=== PATIENT | female | born 1970 | race African-American/Black ===

== ENCOUNTER → 2019-02-24 | Outpatient (CLI) | payer BC ==
[~2019-02-24] MED LIST: ALBUTEROL2.5 MG/3 M INH; AMITRIPTYLINE H50 MG PO; BREO INH; CYCLOBENZAPRINE5 MG PO; CYMBALTA30 MG PO; GABAPENTIN800 MG PO; Hydrocodone/Chlorpheniramine PO; LEVOCETIRIZINE D5 MG PO; LORATADINE10 MG PO; METHYLPREDNISOLO4 M1 PO; MONTELUKAST SOD10 MG PO; NIFEDIPINE ER90 M1 PO; PREDNISONE20 MG PO; TESSALON PERLE100 MG PO; TYLENOL # 31 EA PO; ZITHROMAX500 MG PO; ZOLPIDEM TARTRA10 MG PO
--- NOTE | 2019-02-24 15:40 | Diagnostic Imaging Report ---
Chest, 2 views, 02/24/2019. History: Shortness of breath and cough. Comparison: None available. Findings: The cardiomediastinal silhouette and pulmonary vasculature are within normal limits. The lungs are clear without evidence of consolidation or pleural effusion. Median sternotomy wires are present. There are no acute osseous or soft tissue abnormalities. Impression: No acute cardiopulmonary abnormality. Signed by: Melecio Noel on 02/24/2019 3:37 PM
== END ==
LOC: RAD 13:56
PROVIDERS: ATTEND Internal Medicine Critical Care Medicine
DX: R06.00 Dyspnea, unspecified (principal)
CPT/HCPCS: 71046

== ENCOUNTER 2019-02-26 11:15 | Inpatient (IN) | payer BC ==
[~2019-02-26] VITALS: Ht 162.6 cm; Wt 83.0 kg
--- OUTSIDE RECORDS SUMMARY | 2019-02-26 11:18 | XMS REPORT | Clinical Summary ---
Author Author [facility] [employer] Organization [facility] Address Unknown Phone Unavailable Care Team Providers Care Web Weaver Name Role Phone Sebastián Delvalle MD PCP Allergies No Known Allergies Medications End Date Status Medication Sig Dispensed Refills Start Date Active BUDESONIDE (PULMICORT Inhale. 0 INHL) Active albuterol (PROAIR Inhale 2 0 HFA,PROVENTIL puffs every 6 HFA,VENTOLIN HFA) 90 (six) hours mcg/actuation inhaler as needed for wheezing. Active gabapentin (NEURONTIN) Take 800 mg 0 800 mg tablet by mouth 3 (three) times a day. Active NIFEdipine XL (PROCARDIA Take 90 mg by 0 XL) 90 MG 24 hr tablet mouth daily. Active cyclobenzaprine Take 5 mg by 0 (FLEXERIL) 5 mg tablet mouth every 8 9 (eight) hours. Active DULoxetine (CYMBALTA) 30 Take by mouth 0 MG capsule daily. 9 Active zolpidem (AMBIEN) 10 mg 0 tablet 9 Active amitriptyline (ELAVIL) 50 Take 50 mg by 0 MG tablet mouth nightly. Active acetaminophen-codeine Take 1 tablet 0 (TYLENOL WITH CODEINE #4) by mouth 300-60 mg per every 4 tabletIndications: Acute (four) hours Pain as needed for moderate pain .Acute Pain. 02/27/2019 Active levoFLOXacin (LEVAQUIN) Take 1 tablet 7 tablet 0 500 MG tablet (500 mg 9 total) by mouth daily for 7 days. 03/21/2019 Active montelukast (SINGULAIR) Take 1 tablet 30 tablet 0 10 mg tablet (10 mg total) 9 by mouth nightly for 30 days. 12/22/2018 Discontinued (Therapy completed) gabapentin (NEURONTIN) Take 300 mg 0 300 mg capsule by mouth 2 (two) times a day. 04/10/2018 acetaminophen-codeine Take 1-2 15 tablet 0 (TYLENOL WITH CODEINE #3) tablets by 8 300-30 mg per tablet mouth every 6 (six) hours as needed for moderate pain for up to 15 days. 12/22/2018 Discontinued (Therapy completed) nebivolol (BYSTOLIC) 10 10 mg=1 tab, 0 MG tablet PO, Daily, # 5 30 tab, 0 Refill(s) 03/28/2018 Discontinued (Therapy completed) gabapentin (NEURONTIN) 100 mg=1 cap, 0 100 mg capsule PO, TID, 0 5 Refill(s) 04/04/2018 traMADol (ULTRAM) 50 mg Take 1 tablet 40 tablet 1 tabletIndications: (50 mg total) 8 Dysmenorrhea, Left by mouth ovarian cyst, Pelvic pain every 6 (six) in female hours as needed for moderate pain for up to 7 days. 06/26/2018 traMADol (ULTRAM) 50 mg Take 1 tablet 40 tablet 1 tabletIndications: Pelvic (50 mg total) 9 pain in female by mouth every 6 (six) hours as needed for moderate pain for up to 10 days. 12/22/2018 Discontinued (Therapy completed) acetaminophen-codeine Take 1 tablet 0 (TYLENOL WITH CODEINE #4) by mouth 9 300-60 mg per tablet every 6 (six) hours as needed. 02/12/2019 Discontinued (Med List Cleanup) amitriptyline (ELAVIL) 50 TAKE 1 TABLET 0 MG tablet BY MOUTH 9 EVERYDAY AT BEDTIME 12/22/2018 Discontinued (Therapy completed) diazePAM (VALIUM) 5 MG Take 5 mg by 0 tablet mouth every 8 9 (eight) hours as needed. 02/12/2019 Discontinued (Med List Cleanup) levocetirizine (XYZAL) 5 Take 5 mg by 0 MG tablet mouth daily. 9 02/12/2019 Discontinued (Med List Cleanup) traMADol (ULTRAM) 50 mg Take 50 mg by 1 tablet mouth every 9 12 (twelve) hours. 01/08/2019 metroNIDAZOLE (FLAGYL) Take 1 tablet 14 tablet 0 500 MG tabletIndications: (500 mg 9 BV (bacterial vaginosis) total) by mouth 2 (two) times a day for 7 days. 02/24/2019 benzonatate (TESSALON Take 1 15 capsule 0 PERLES) 100 MG capsule capsule (100 9 mg total) by mouth 3 (three) times a day as needed for cough for up to 5 days. 02/22/2019 dextromethorphan-guaifene Take 10 mL by 118 mL 0 sin (TUSSIN-DM) 10-100 mouth every 4 9 mg/5 mL liquid liquid (four) hours for 3 days. Active Problems Problem Noted Date SOB (shortness of breath) 02/12/2019 Enlarged uterus 03/28/2018 Intramural, submucous, and subserous leiomyoma of uterus 03/28/2018 Dysmenorrhea 03/28/2018 Irregular uterine bleeding 03/28/2018 Pelvic pain in female 03/28/2018 Left ovarian cyst 03/28/2018 Fibroid uterus 10/12/2016 Overview: 10 x 10 mm fibroid noted within the uterine wall seen on pelvic ultrasound and pelvic CT on 10/02/2016. Pelvic pain in female 10/12/2016 Right ovarian cyst 10/11/2016 Overview: Right ovarian cyst on u/s 10-02-16. C/W hemorrhagic cyst. Neuropathy 10/11/2016 Asthma 10/11/2016 Hypertension 10/11/2016 Encounters Care Team Description Date Type Specialty N/A 02/25/2019 Intake Access Jj Robin Jr., MD Abouelsaad, Mai Abdelmoneim E.S, MD Bavare, Yanick Courtney MD SOB (shortness of breath) (Primary Dx); Severe persistent asthma with exacerbation; Acute respiratory failure, unspecified whether with hypoxia or hypercapnia (HCC); Inspiratory stridor; Uncomplicated asthma, unspecified asthma severity, unspecified whether persistent 02/12/2019 [facility] General Internal Medicine - Encounter 02/19/2019 Ranjith Jerry II, MD BV (bacterial vaginosis) (Primary Dx) 01/01/2019 Orders Only Obstetrics and Gynecology Ranjith Jerry II, MD Encounter for gynecological examination without abnormal finding (Primary Dx) 12/22/2018 Office Visit Obstetrics and Gynecology Ranjith Jerry II, MD Encounter for breast cancer screening other than mammogram 12/22/2018 Procedure visit Radiology Ranjith Jerry II, MD Encounter for breast cancer screening other than mammogram (Primary Dx) 12/16/2018 Orders Only Obstetrics and Gynecology Ranjith Jerry II, MD Pelvic pain in female (Primary Dx) 06/16/2018 Telephone Obstetrics and Gynecology Ranjith Jerry II, MD Irregular uterine bleeding (Primary Dx); Dysmenorrhea; Intramural, submucous, and subserous leiomyoma of uterus; Enlarged uterus; Left ovarian cyst; Uterine leiomyoma, unspecified location; Pelvic pain in female 03/28/2018 Office Visit Obstetrics and Gynecology Jj Robin Jr., MD Abnormal uterine bleeding (AUB) (Primary Dx); Abdominal cramping, bilateral lower quadrant 03/26/2018 Emergency Emergency Medicine after 02/25/2018 Immunizations Name Administration Dates Next Due FLUCELVAX QUAD PF 02/19/2019 () Family History Medical History Relation Name Comments Hypertension Father Cancer Maternal Throat Grandfather Diabetes Maternal Grandfather Heart disease Maternal Grandfather Hypertension Maternal Grandfather Kidney failure Maternal Grandfather Cancer Maternal Breast Grandmother Diabetes Mother Heart disease Mother Hypertension Mother Kidney failure Mother Hypertension Paternal Grandfather Diabetes Paternal Grandmother Hypertension Paternal Grandmother Relation Name Status Comments Father Maternal Grandfather Maternal Grandmother Mother Paternal Grandfather Paternal Grandmother Social History Date Tobacco Use Types Packs/Day Years Used Never Smoker Smokeless Tobacco: Never Used Drinks/Week oz/Week Comments Alcohol Use No Sex Assigned at Date Recorded Not on file Industry Job Start Date Occupation Not on file Not on file Not on file Travel End Travel History Travel Start No recent travel history available. Last Filed Vital Signs Reading Time Taken Comments Vital Sign 123/74 02/19/2019 11:29 AM CDT Blood Pressure 90 02/19/2019 11:29 AM CDT Pulse 36.4 C (97.5 F) 02/19/2019 11:29 AM CDT Temperature 19 02/19/2019 11:29 AM CDT Respiratory Rate 100% 02/19/2019 11:29 AM CDT Oxygen Saturation - - Inhaled Oxygen Concentration 86 kg (189 lb 9.5 oz) 02/12/2019 8:48 PM CDT Weight 162.6 cm (5' 4") 02/12/2019 6:20 AM CDT Height 32.54 02/12/2019 6:20 AM CDT Body Mass Index Plan of Treatment Care Team Description Date Type Specialty Ranjith Jerry II, MD [address] [place] [address], [address] [place], [place] [address] 12/24/2019 Office Visit Obstetrics and Gynecology Health Maintenance Due Date Last Done Comments INFLUENZA VACCINE 01/08/2019 BREAST CANCER SCREENING 12/23/2019 12/22/2018, 11/29/2017, 10/15/2016 CERVICAL CANCER SCREENING 12/23/2019 12/22/2018, 11/28/2017, 10/11/2016, Additional history exists Procedures Comments Procedure Name Priority Date/Time Associated Diagnosis ESTIMATED GFR Routine 02/19/2019 7:14 AM CDT BASIC METABOLIC PANEL Routine 02/19/2019 7:14 AM CDT HC COMPLETE BLD COUNT Routine 02/19/2019 W/AUTO DIFF 7:14 AM CDT POC GLUCOSE Routine 02/19/2019 6:37 AM CDT POC GLUCOSE Routine 02/18/2019 9:33 PM CDT POC GLUCOSE Routine 02/18/2019 4:11 PM CDT POC GLUCOSE Routine 02/18/2019 2:28 PM CDT GRAM STAIN Routine 02/18/2019 10:20 AM CDT SPUTUM CULTURE Routine 02/18/2019 10:20 AM CDT XR CHEST 1 VW PORTABLE Routine 02/18/2019 8:29 AM CDT ESTIMATED GFR Routine 02/18/2019 4:45 AM CDT BASIC METABOLIC PANEL Routine 02/18/2019 4:45 AM CDT HC COMPLETE BLD COUNT Routine 02/18/2019 W/AUTO DIFF 4:45 AM CDT POC GLUCOSE Routine 02/17/2019 5:08 AM CDT HCG QUALITATIVE, SERUM Routine 02/17/2019 SCREEN 5:07 AM CDT ESTIMATED GFR Routine 02/17/2019 5:07 AM CDT BASIC METABOLIC PANEL Routine 02/17/2019 5:07 AM CDT HC COMPLETE BLD COUNT Routine 02/17/2019 W/AUTO DIFF 5:07 AM CDT XR CHEST 1 VW PORTABLE STAT 02/17/2019 2:09 AM CDT POC GLUCOSE Routine 02/17/2019 12:28 AM CDT POC GLUCOSE Routine 02/16/2019 9:36 PM CDT POC GLUCOSE Routine 02/16/2019 8:57 AM CDT ESTIMATED GFR Routine 02/16/2019 8:18 AM CDT BASIC METABOLIC PANEL Routine 02/16/2019 8:18 AM CDT HC COMPLETE BLD COUNT Routine 02/16/2019 W/AUTO DIFF 8:18 AM CDT XR ABDOMEN 1 VW Routine 02/16/2019 6:41 AM CDT XR CHEST 1 VW PORTABLE Routine 02/16/2019 6:41 AM CDT ARTERIAL BLOOD GAS Routine 02/16/2019 3:32 AM CDT POC GLUCOSE Routine 02/16/2019 12:37 AM CDT POC GLUCOSE Routine 02/15/2019 8:06 PM CDT POC GLUCOSE Routine 02/15/2019 4:19 PM CDT POC GLUCOSE Routine 02/15/2019 12:22 PM CDT ESTIMATED GFR Routine 02/15/2019 9:11 AM CDT COMPREHENSIVE METABOLIC Routine 02/15/2019 PANEL 9:11 AM CDT CBC WITH PLATELET AND Routine 02/15/2019 DIFFERENTIAL 9:11 AM CDT POC GLUCOSE Routine 02/15/2019 8:39 AM CDT XR CHEST 1 VW PORTABLE Routine 02/15/2019 7:06 AM CDT ARTERIAL BLOOD GAS Routine 02/15/2019 5:17 AM CDT POC GLUCOSE Routine 02/15/2019 5:01 AM CDT POC GLUCOSE Routine 02/15/2019 12:19 AM CDT POC GLUCOSE Routine 02/14/2019 8:05 PM CDT POC GLUCOSE Routine 02/14/2019 5:16 PM CDT POC GLUCOSE Routine 02/14/2019 1:11 PM CDT SMEAR REVIEW Routine 02/14/2019 12:38 PM CDT ESTIMATED GFR Routine 02/14/2019 12:38 PM CDT COMPREHENSIVE METABOLIC Routine 02/14/2019 PANEL 12:38 PM CDT HC COMPLETE BLD COUNT Routine 02/14/2019 W/AUTO DIFF 12:38 PM CDT POC GLUCOSE Routine 02/14/2019 8:56 AM CDT XR CHEST 1 VW PORTABLE Routine 02/14/2019 7:29 AM CDT POC GLUCOSE Routine 02/14/2019 6:30 AM CDT ARTERIAL BLOOD GAS Routine 02/14/2019 5:20 AM CDT POC GLUCOSE Routine 02/14/2019 12:32 AM CDT POC GLUCOSE Routine 02/13/2019 8:12 PM CDT POC GLUCOSE Routine 02/13/2019 4:25 PM CDT ECHOCARDIOGRAM 2D Routine 02/13/2019 COMPLETE W MMODE SPECTRAL 4:06 PM CDT COLOR DOPPLER (76847) CT SOFT TISSUE NECK W STAT 02/13/2019 CONTRAST 3:25 PM CDT XR ABDOMEN 1 VW Routine 02/13/2019 2:44 PM CDT POC GLUCOSE Routine 02/13/2019 12:13 PM CDT ARTERIAL BLOOD GAS Routine 02/13/2019 12:00 PM CDT XR CHEST 1 VW PORTABLE STAT 02/13/2019 11:22 AM CDT INTUBATION Routine 02/13/2019 Acute respiratory 11:04 AM CDT failure, unspecified whether with hypoxia or hypercapnia (HCC) Inspiratory stridor POC GLUCOSE Routine 02/13/2019 9:00 AM CDT ECG 12-LEAD STAT 02/13/2019 8:34 AM CDT POC GLUCOSE Routine 02/13/2019 6:09 AM CDT ESTIMATED GFR Routine 02/13/2019 4:37 AM CDT PHOSPHORUS LEVEL Routine 02/13/2019 4:37 AM CDT MAGNESIUM LEVEL Routine 02/13/2019 4:37 AM CDT COMPREHENSIVE METABOLIC Routine 02/13/2019 PANEL 4:37 AM CDT CBC WITH PLATELET AND Routine 02/13/2019 DIFFERENTIAL 4:37 AM CDT ARTERIAL BLOOD GAS Routine 02/13/2019 4:29 AM CDT POC GLUCOSE Routine 02/13/2019 1:11 AM CDT POC GLUCOSE Routine 02/12/2019 9:25 PM CDT POC GLUCOSE Routine 02/12/2019 4:27 PM CDT ESTIMATED GFR Routine 02/12/2019 1:56 PM CDT PHOSPHORUS LEVEL Routine 02/12/2019 1:56 PM CDT MAGNESIUM LEVEL Routine 02/12/2019 1:56 PM CDT BASIC METABOLIC PANEL Routine 02/12/2019 1:56 PM CDT POC GLUCOSE Routine 02/12/2019 12:10 PM CDT BLOOD CULTURE, AEROBIC & Routine 02/12/2019 ANAEROBIC 11:21 AM CDT RESPIRATORY PATHOGEN Routine 02/12/2019 PANEL 11:16 AM CDT GRAM STAIN STAT 02/12/2019 11:14 AM CDT RESPIRATORY CULTURE STAT 02/12/2019 11:14 AM CDT LIPID PANEL Routine 02/12/2019 11:10 AM CDT HEMOGLOBIN A1C Routine 02/12/2019 11:10 AM CDT BLOOD CULTURE, AEROBIC & Routine 02/12/2019 ANAEROBIC 11:10 AM CDT ARTERIAL BLOOD GAS Routine 02/12/2019 10:50 AM CDT XR ABDOMEN 1 VW PORTABLE Routine 02/12/2019 10:37 AM CDT XR CHEST 1 VW STAT 02/12/2019 10:17 AM CDT URINE DRUGS OF ABUSE Routine 02/12/2019 SCREEN 10:04 AM CDT STREPTOCOCCUS PNEUMONIAE Routine 02/12/2019 URINARY ANTIGEN 10:04 AM CDT LEGIONELLA URINARY Routine 02/12/2019 ANTIGEN 10:04 AM CDT ECG 12-LEAD STAT 02/12/2019 9:52 AM CDT RESPIRATORY PATHOGEN STAT 02/12/2019 PANEL 9:42 AM CDT INFLUENZA ANTIGEN TEST, Routine 02/12/2019 REFLEX NEGATIVE TO RPP 9:42 AM CDT HCG QUALITATIVE, URINE Routine 02/12/2019 SCREEN 9:41 AM CDT URINALYSIS SCREEN AND Routine 02/12/2019 MICROSCOPY, WITH REFLEX 9:41 AM CDT TO CULTURE XR CHEST 1 VW STAT 02/12/2019 7:59 AM CDT VENOUS BLOOD GAS STAT 02/12/2019 7:34 AM CDT ESTIMATED GFR STAT 02/12/2019 7:21 AM CDT HC COMPLETE BLD COUNT STAT 02/12/2019 W/AUTO DIFF 7:21 AM CDT BASIC METABOLIC PANEL STAT 02/12/2019 7:21 AM CDT ECG ED PRELIMINARY Routine 02/12/2019 INTERPRETATION 7:03 AM CDT INTUBATION Routine 02/12/2019 7:03 AM CDT [place] CRITICAL CARE, E/M Routine 02/12/2019 30-74 MINUTES 7:03 AM CDT SURESWAB(R), CANDIDIASIS, Routine 12/22/2018 Encounter for PCR 11:45 AM CDT gynecological examination without abnormal finding SURESWAB(R) BACTERIAL Routine 12/22/2018 Encounter for VAGINOSIS DNA, QN, PCR 11:45 AM CDT gynecological examination without abnormal finding THINPREP TIS PAP AND HPV Routine 12/22/2018 Encounter for MRNA E6/E7 REFLEX HPV 10:48 AM CDT gynecological examination 16,18/45 without abnormal finding MAMMO BREAST SCREEN Routine 12/22/2018 Encounter for breast TOMOSYNTHESIS BILATERAL 10:23 AM CDT cancer screening other than mammogram US PELVIC TRANSVAGINAL STAT 03/26/2018 12:28 PM CDT US PELVIC TRANSABDOMINAL STAT 03/26/2018 12:28 PM CDT URINALYSIS SCREEN AND STAT 03/26/2018 MICROSCOPY, WITH REFLEX 10:58 AM CDT TO CULTURE GRAM STAIN STAT 03/26/2018 10:58 AM CDT URINE CULTURE STAT 03/26/2018 10:58 AM CDT ESTIMATED GFR STAT 03/26/2018 9:51 AM CDT HCG QUALITATIVE, SERUM STAT 03/26/2018 SCREEN 9:51 AM CDT COMPREHENSIVE METABOLIC STAT 03/26/2018 PANEL 9:51 AM CDT HC COMPLETE BLD COUNT Routine 03/26/2018 W/AUTO DIFF 9:51 AM CDT after 02/25/2018 Results * Estimated GFR (02/19/2019 7:14 AM CDT) Only the most recent of 10 results within the time period is included. Estimated GFR >=90 mL/min/1.73 m2 [facility] Comment: PENTECOSTALISM [facility] G1 >=90 Normal or high G2 60-89Mildly decreased [id number] Mildly to moderately decreased M1b29-89 Moderately to severely decreased G4 15-29Severely decreased G5 <15Kidney failure The eGFR was calculated using the Chronic Kidney Disease Epidemiology Collaboration (CKD-EPI) equation. Interpretation is based on recommendations of the National Kidney Foundation-Kidney Disease Outcomes Quality Initiative (NKF-KDOQI) published in 2014. Specimen Plasma specimen Performing Organization Address City/State/Zipcode Phone Number [place] [address] [place] [address] PATHOLOGY AND GENOMIC MEDICINE [facility] [address] * CBC with platelet and differential (02/19/2019 7:14 AM CDT) Only the most recent of 9 results within the time period is included. WBC 9.5 4.2 - 11.0 k/uL [facility] RBC 3.61 (L) 4.04 - 5.86 m/uL [facility] HGB 10.8 (L) 11.5 - 15.3 g/dL [facility] HCT 33.5 (L) 34.0 - 45.0 % [facility] MCV 92.8 80.0 - 98.0 fL [facility] MCH 29.9 27.0 - 34.0 pg [facility] MCHC 32.2 31.5 - 36.5 g/dL [facility] RDW - SD 43.5 37.0 - 51.0 fL [facility] MPV 9.5 7.4 - 10.4 fL [facility] Platelet count 330 150 - 400 k/uL [facility] Nucleated RBC 0.00 /100 WBC [facility] Neutrophils 61.7 36.0 - 66.0 % [facility] Lymphocytes 26.0 24.0 - 44.0 % [facility] Monocytes 9.7 (H) 0.0 - 6.0 % [facility] Eosinophils 1.5 0.0 - 6.0 % [facility] Basophils 0.5 0.0 - 1.2 % [facility] Immature 0.6 0.0 - 1.0 % [facility] granulocytes [facility] Specimen Blood Performing Organization Address City/State/Zipcode Phone Number [facility] [address] [place] [phone] PATHOLOGY AND GENOMIC MEDICINE [facility] [address] * Basic metabolic panel (02/19/2019 7:14 AM CDT) Only the most recent of 6 results within the time period is included. Sodium 136 135 - 150 mEq/L [facility] Potassium 3.9 3.5 - 5.0 mEq/L [facility] Chloride 100 98 - 112 mEq/L [facility] CO2 27 24 - 31 mmol/L [facility] Anion gap 9@ANIO 7 - 15 mEq/L [facility] BUN 18 7 - 18 mg/dL [facility] Creatinine 0.80 0.50 - 0.90 mg/dL [facility] Glucose 127 (H) 65 - 100 mg/dL [facility] Calcium 8.7 8.3 - 10.2 mg/dL [facility] Specimen Plasma specimen Performing Organization Address City/[facility] Phone Number [facility] [address] [place] [address] PATHOLOGY [place] [address] HOSPITAL * POC glucose (02/19/2019 6:37 AM CDT) Only the most recent of 30 results within the time period is included. [facility] POC glucose 118 (H) 65 - 100 mg/dL [facility] Comment: PENTECOSTALISM Meter ID: [id number] [facility] Meter Tester: [facility] Specimen Performing Organization Address City/[facility] Phone Number [facility] [address] [place] [address] PATHOLOGY [place] [address] HOSPITAL * Sputum culture (02/18/2019 10:20 AM CDT) [facility] Sputum culture Normal oral geo isolated. [facility] isolate Comment: PENTECOSTALISM Specimen Information HOSPITAL Specimen Source: Sputum Specimen Site: Expectorated Specimen Sputum - Expectorated Performing Organization Address City/State/Zipcode Phone Number [facility] DEPARTMENT OF [address] [place] [address] PATHOLOGY [place] [address] HOSPITAL * Gram stain (02/18/2019 10:20 AM CDT) Only the most recent of 3 results within the time period is included. Gram stain Few WBC's [facility] isolate Few epithelial cells PENTECOSTALISM Moderate Gram positive rods HOSPITAL Occasional Gram positive cocci in pairs Comment: Specimen Information Specimen Source: Sputum Specimen Site: Expectorated Specimen Sputum - Expectorated Performing Organization Address City/[facility] Phone Number [facility] DE[facility] [address] [place] [address] PATHOLOGY AND GENOMIC MEDICINE [facility] [address] HOSPITAL * XR Chest 1 Vw Portable (02/18/2019 8:29 AM CDT) Only the most recent of 6 results within the time period is included. Specimen Narrative Performed At EXAMINATION:XR CHEST 1 VW PORTABLE [facility] CLINICAL HISTORY:shortness of breath COMPARISON:02/17/2019 IMPRESSION: 1.Mild atelectasis in the lung bases. 2.Stable cardiomediastinal silhouette. 3.Sternotomy wires are intact. [id number] Procedure Note Hm Interface, Radiology Results Incoming - 02/18/2019 8:35 AM CDT EXAMINATION: XR CHEST 1 VW PORTABLE CLINICAL HISTORY: shortness of breath COMPARISON: 02/17/2019 IMPRESSION: 1.Mild atelectasis in the lung bases. 2.Stable cardiomediastinal silhouette. 3.Sternotomy wires are intact. [id number] Performing Organization Address [facility] Phone Number [facility] [address] [place] [address] * hCG qualitative, serum screen (02/17/2019 5:07 AM CDT) Only the most recent of 2 results within the time period is included. Pathologist [facility] hCG Negative [facility] qualitative, Comment: PENTECOSTALISM serum The manufacturers stated [place] sensitivity of HcG test for HOSPITAL serum is >/=10 mIU/ml and urine is >/=20mIU/ml. Specimen Blood Performing Organization Address City/[facility]/Zipcode Phone Number [facility] DEPARTMENT OF [address] [place] [address] PATHOLOGY AND GENOMIC MEDICINE [facility] PENTECOSTALISM [place] [address] [place] [address] HOSPITAL * XR Abdomen 1 Vw (02/16/2019 6:41 AM CDT) Only the most recent of 2 results within the time period is included. Specimen Narrative Performed At EXAMINATION:XR ABDOMEN 1 VW [facility] CLINICAL HISTORY:NGT placement confirmation COMPARISON:None. FINDINGS: XR ABDOMEN 1 VW images are submitted. The bowel gas pattern is nonspecific. No pathologic masses or calcifications are identified. The nasogastric tube extends into the stomach. Bowel gas scattered throughout the abdomen. An endotracheal tube has a tip several centimeters above the best. IMPRESSION: 1. The nasogastric tube extends into the stomach. [id number] Procedure Note Hm Interface, Radiology Results Incoming - 02/16/2019 6:52 AM CDT EXAMINATION: XR ABDOMEN 1 VW CLINICAL HISTORY: NGT placement confirmation COMPARISON: None. FINDINGS: XR ABDOMEN 1 VW images are submitted. The bowel gas pattern is nonspecific. No pathologic masses or calcifications are identified. The nasogastric tube extends into the stomach. Bowel gas scattered throughout the abdomen. An endotracheal tube has a tip several centimeters above the best. IMPRESSION: 1. The nasogastric tube extends into the stomach. [id number] Performing Organization Address City/State/Zipcode Phone Number [facility] [address] [place] [address] * Arterial blood gas (02/16/2019 3:32 AM CDT) Only the most recent of 6 results within the time period is included. pH, arterial 7.421 7.350 - 7.450 units [facility] pCO2, arterial 42.6 35.0 - 45.0 mmHg [facility] pO2, arterial 213.0 (H) 80.0 - 90.0 mmHg [facility] O2 saturation, 100.0 95.0 - 100.0 % [place] arterial [facility] Base excess, 3.2 mEq/L [place] arterial [facility] Bicarbonate 27.7 21.0 - 28.0 mEq/L [facility] O2 content 16.6 VOL% [facility] FiO2, inspired 25.0 % [facility] O2% [facility] Carboxyhemoglob 0.3 0.0 - 1.4 % [place] in Comment: PENTECOSTALISM Reference Ranges: [place] Carboxyhemoglobin [facility] Non smoker: 0.0 - 2.0% Smoker: 2.1 - 5.0% Heavy smoker: 5.1 - 9% Methemoglobin 0.7 0.0 - 1.0 % [facility] Hemoglobin, 11.6 (L) 12.0 - 16.0 g/dL [facility] blood gas [facility] Specimen Blood Performing Organization Address City/[facility] Phone Number [facility] DE[facility]MENT OF [address] [place] [address] PATHOLOGY AND GENOMIC MEDICINE [address] * Comprehensive metabolic panel (02/15/2019 9:11 AM CDT) Only the most recent of 4 results within the time period is included. Sodium 138 135 - 150 mEq/L [facility] Potassium 3.9 3.5 - 5.0 mEq/L [facility] Chloride 103 98 - 112 mEq/L [facility] CO2 24 24 - 31 mmol/L [facility] Anion gap 11@ANIO 7 - 15 mEq/L [facility] BUN 16 7 - 18 mg/dL [facility] Creatinine 0.80 0.50 - 0.90 mg/dL [facility] Glucose 171 (H) 65 - 100 mg/dL [facility] Calcium 9.4 8.3 - 10.2 mg/dL [facility] Protein 7.2 6.3 - 8.3 g/dL [facility] Albumin 3.4 (L) 3.5 - 5.0 g/dL [facility] A/G ratio 0.9 0.7 - 3.8 [facility] Alkaline 69 0 - 104 U/L [place] phosphatase [facility] AST 12 10 - 35 U/L [facility] ALT 11 5 - 50 U/L [facility] Total bilirubin <0.3 0.2 - 1.2 mg/dL [facility] Specimen Plasma specimen Performing Organization Address City/[facility] Phone Number [facility] [place] [address] PATHOLOGY AND GENOMIC MEDICINE [facility] [address] [place] [address] HOSPITAL * Smear review (02/14/2019 12:38 PM CDT) Platelet slide Raman adequate [place] review [facility] Specimen Performing Organization Address City/State/Zipcode Phone Number [facility] OF [address] [place] [address] PATHOLOGY AND GENOMIC MEDICINE [facility] [address] [place] [address] HOSPITAL * Echocardiogram complete w contrast and 3D if needed (02/13/2019 4:06 PM CDT) Velocity Ratio 0.85 m/s [facility] (V1/V2) IVS,d 1.20 cm [facility] EF 71.29 % [facility] Ascending aorta 2.93 cm [facility] LVPWD,d 1.15 cm [facility] AoV Mean PG 4.84 mmHg [facility] AV LVOT peak 5.94 mmHg [facility] gradient MV mean 2.07 mmHg [facility] gradient MV valve area p 4.21 cm2 [facility] 1/2 method PV Pk Grad 5.71 mmHg [facility] E/A ratio 1.20 [facility] E wave 200.03 msec [facility] decelartion time LVOT Diam,S 1.76 cm [facility] LVOT area 2.43 cm2 [facility] LVOT Vmax 1.26 m/s [facility] LVOT VTI 0.27 m [facility] AoV Peak PG 8.50 mmHg [facility] MV Peak E Abran 0.90 m/s [facility] MV stenosis 52.21 ms [facility] pressure 1/2 time MV Peak A Abran 0.75 m/s [facility] BSA 1.91 m2 [facility] Ao Root 2.82 cm [facility] Diameter AoV Area, Vmax 2.03 cm2 [facility] AoV Area, VTI 1.90 cm2 [facility] AoV Vmax 1.49 m/s [facility] BSA Marte 2.03 m2 [facility] BSA [place] 2.01 m2 [facility] IVS/LVPW,2D 1.04 [facility] Left Atrium 3.63 cm [facility] Dimension Anterior LV,d 3.99 cm [facility] LV,s 2.39 cm [facility] PV VMAX 1.19 m/s [facility] TR Vpeak 2.17 mm/s [facility] BMI 32.61 kg/m2 [facility] MV E A ratio 1.22 [facility] TR pk grad 17.89 mmHg [facility] AoV area i VTI 0.99 cm2/m2 [facility] BSA [place] MR peak grad 5.44 mmHg [facility] Ao Root 2.82 cm [facility] Diameter LV SYS VOL 19.98 ml [facility] LV LR VOL 69.59 ml [facility] LA area s A4C 18.37 cm2 [facility] LA Vol MOD A4C 58.77 ml [facility] LV SI Teich 2D 25.92 ml/m2 [facility] LV SV Teich 2D 49.61 ml [facility] LV Vol s Teich 19.98 ml [facility] PSAX LVOT SI 32.62 ml/m2 [facility] MV Vmax 1.17 m [facility] MV VTI Tips 0.22 m [facility] AoV Vmn 1.03 [facility] IVS s 2D 1.46 [facility] LV FS Cube 2D 40.07 [facility] LV FS Teich 2D 40.07 [facility] AoV VTI 0.33 m [facility] LV EF,2D 78.47 % [facility] MV AE ratio 0.82 [facility] LVOT Vmn 0.80 [facility] Pt Size 162.56 [facility] Pt Wt 86.18 [facility] Aov area Vmn 1.92 cm2 [facility] LA A_P score P 1.40 [facility] LVOT mean grad 2.90 mmHg [facility] MAX Pred HR 173.74 [facility] 85 of MPHR 147.68 [facility] AoV area I VMN 1.00 cm2/m2 [facility] bsa Calc MPHR 173.74 bpm [facility] IVS pct thck 21.66 % [facility] PLAX LV SI Cube 2D 26.05 ml/m2 [facility] LV SV Cube 2D 49.85 ml [facility] LV vol d cube 63.53 ml [facility] 2D LV vol s cube 13.68 ml [facility] 2D LVPW pct thck 14.81 % [facility] PLAX LVPW s PLAX 1.32 cm [facility] MV Decel slope 4.48 m/s2 [facility] Pred Exer Dur 9.39 [facility] R1 Pred METS R1 8.69 [facility] Specimen Narrative Performed At [facility] Left ventricular systolic function is normal. Left Ventricular ejection fraction is 65 - 70%. The mitral valve appears thickened. Performing Organization Address City/State/Zipcode Phone Number [facility] [address] [place] [address] * CT Soft Tissue Neck W Contrast (02/13/2019 3:25 PM CDT) Specimen Narrative Performed At EXAMINATION:CT SOFT TISSUE NECK W CONTRAST [facility] CLINICAL HISTORY:stridor post extubationnow reintubated COMPARISON:None. TECHNIQUE: CT imaging was performed with iterative reconstruction technique and/or automated exposure control to reduce radiation dose. Findings: Limited evaluation of the aerodigestive tract due to presence of endotracheal and nasogastric tubes. Endotracheal tube enters the right mainstem bronchus. Recommend retraction by 2-3 cm. Nonspecific fluid in the airway above the inflated ET tube balloon. No drainable fluid collections. No lymphadenopathy in the neck by CT criteria. No focal lesions in the salivary glands. Thyroid gland is within normal limits. No aggressive bony lesions. Incidental lipoma in the left trapezius muscle. IMPRESSION: No masses or lymphadenopathy in the neck. Limited evaluation of the aerodigestive tract due to presence of endotracheal and nasogastric tubes. Endotracheal tube tip in the right mainstem bronchus. Recommend retraction by 2 to 3 cm. Findings were discussed with and acknowledged by BRIAN Patel at 02/13/2019 3:37 PM. [facility]-[id number] Procedure Note Interface, Radiology Results Incoming - 02/13/2019 3:48 PM CDT EXAMINATION: CT SOFT TISSUE NECK W CONTRAST CLINICAL HISTORY: stridor post extubation now reintubated COMPARISON: None. TECHNIQUE: CT imaging was performed with iterative reconstruction technique and/or automated exposure control to reduce radiation dose. Findings: Limited evaluation of the aerodigestive tract due to presence of endotracheal and nasogastric tubes. Endotracheal tube enters the right mainstem bronchus. Recommend retraction by 2- 3 cm. Nonspecific fluid in the airway above the inflated ET tube balloon. No drainable fluid collections. No lymphadenopathy in the neck by CT criteria. No focal lesions in the salivary glands. Thyroid gland is within normal limits. No aggressive bony lesions. Incidental lipoma in the left trapezius muscle. IMPRESSION: No masses or lymphadenopathy in the neck. Limited evaluation of the aerodigestive tract due to presence of endotracheal and nasogastric tubes. Endotracheal tube tip in the right mainstem bronchus. Recommend retraction by 2 to 3 cm. Findings were discussed with and acknowledged by BRIAN Patel at 02/13/2019 3:37 PM. [facility]-[id number] Performing Organization Address City/State/Zipcode Phone Number [facility] [address] [place] [address] * Intubation (02/13/2019 11:04 AM CDT) Narrative Performed At Kip Spence MD 02/13/2019 11:07 AM Intubation Date/Time: 02/13/2019 11:06 AM Performed by: Kip Spence MD Authorized by: Kip Spence MD Consent: Consent obtained:Verbal and written Consent given by:Parent Risks discussed:Aspiration, bleeding, , brain injury, dental trauma, hypoxia, pneumothorax and laryngeal injury Alternatives discussed:No treatment, delayed treatment and alternative treatment [place] protocol: Procedure explained and questions answered to patient or proxy's satisfaction: yes Relevant documents present and verified: yes Test results available and properly labeled: yes Site/side marked: yes Immediately prior to procedure, a time out was called: yes Patient identity confirmed:Arm band Pre-procedure details: Patient status:Altered mental status Mallampati score:2 Induction:Etomidate Paralytics:Rocuronium Procedure details: Preoxygenation:Bag valve mask Intubation method:Oral Technique:Video laryngoscopy Laryngoscope blade:Mac 3 Grade view:2 Difficult airway?: No Tube size (mm):7.5 Tube type:Cuffed Number of attempts:1 Ventilation between attempts: no Cricoid pressure: yes Tube visualized through cords: yes Placement assessment: ETT to lip:22 cm Tube secured with:Adhesive tape Breath sounds:Equal Placement verification: chest rise, CXR verification, equal breath sounds and ETCO2 detector Post-procedure details: Patient tolerance of procedure:Tolerated well, no immediate complications Comments: -Mild to moderate upper airway edema/swelling -Intact vocal cord with symmetrical movement * ECG 12 lead (02/13/2019 8:34 AM CDT) Only the most recent of 2 results within the time period is included. Ventricular 90 [facility] MUSE rate Atrial rate 90 [facility] M[facility] AZ interval 168 [facility] QRSD interval 76 [facility] QT interval 368 [facility] QTC interval 450 [facility] P axis 1 47 [facility] QRS axis 1 32 [facility] T wave axis 43 [facility] EKG impression Normal sinus rhythm-Normal [facility] ECG-In automated comparison with ECG of 12-FEB-2019 09:52,-No significant change was found- Specimen Narrative Performed At Performing Organization Address City/[facility]code Phone Number [facility] [address] [place] [id number] * Phosphorus level (02/13/2019 4:37 AM CDT) Only the most recent of 2 results within the time period is included. [facility] Phosphorus 3.3 2.4 - 4.5 mg/dL [facility] Specimen Plasma specimen Performing Organization Address City/[facility] [place] [address] PATHOLOGY AND GENOMIC MEDICINE [address] * Magnesium level (02/13/2019 4:37 AM CDT) Only the most recent of 2 results within the time period is included. [facility] Magnesium 1.70 1.60 - 2.60 mg/dL [facility] Specimen Plasma specimen Performing Organization Address City/[facility] Phone Number [facility] [place] [address] PATHOLOGY AND GENOMIC MEDICINE [address] * Blood culture, aerobic & anaerobic (02/12/2019 11:21 AM CDT) Only the most recent of 2 results within the time period is included. [facility] Blood culture No growth after 5 days of [place] isolate incubation. [facility] Comment: HOSPITAL Specimen Information Specimen Source: Blood Specimen Site: Peripheral Hand Right Specimen Blood Performing Organization Address City/[facility]code Phone Number [facility] DEPARTMENT OF [address] AND [facility] [address] [place] [address] HOSPITAL * Respiratory pathogen panel (02/12/2019 11:16 AM CDT) Only the most recent of 2 results within the time period is included. [facility] Respiratory Negative for all pathogens [place] pathogen panel tested: [place] Negative for Adenovirus [facility] Negative for Coronavirus HKU1 Negative for Coronavirus NL63 Negative for Coronavirus 229E Negative for Coronavirus OC43 Negative for Human Metapneumovirus Negative for Rhinovirus/Enterovirus Negative for Influenza A Negative for Influenza A/H1 Negative for Influenza A/H3 Negative for Influenza A/H1-2009 Negative for Influenza B Negative for Parainfluenza Virus 1 Negative for Parainfluenza Virus 2 Negative for Parainfluenza Virus 3 Negative for Parainfluenza Virus 4 Negative for Respiratory Syncytial Virus Negative for Bordetella pertussis Negative for Chlamydophila pneumoniae Negative for Mycoplasma pneumoniae This real-time PCR assay detects the presence of nucleic acids (RNA or DNA) for the respiratory pathogens listed. A result of "Not-detected" does not exclude the possibility of the presence of one or more pathogens at concentrations less than the detectable limits of the assay. Comment: Specimen Information Specimen Source: Bronchial Washing Specimen Site: Washing Specimen Bronchial washing - Washing Performing Organization Address City/[facility]/Zipcode Phone Number [address] [facility] [address] [place] [address] * Respiratory culture (02/12/2019 11:14 AM CDT) [facility] Respiratory Normal respiratory geo [place] culture isolate isolated. [facility] Comment: HOSPITAL Specimen Information Specimen Source: Bronchial Washing Specimen Site: Right and Left Lobes Specimen Bronchial washing - Right and left lobes Performing Organization Address City/State/Zipcode Phone Number [facility] DEPARTMENT [address] [place] [address] * Hemoglobin A1c (02/12/2019 11:10 AM CDT) [facility] Hemoglobin A1C 5.6 4.0 - 5.6 % [place] Comment: [facility] HbA1c cutoffs for diagnosing [place] diabetes: HOSPITAL 4.0% - 5.6%=normal 5.7% - 6.4%=increased risk for diabetes (prediabetes) >=6.5%=diabetes Goals for glycemic control (ADA 2016) < 7.0%Target for non adults with diabetes. More or less stringent targets may be appropriate for individual patients. <7.5% Target for Children and adolescents with type 1 diabetes. Specimen Blood Performing Organization Address City/[facility]/Zipcode Phone Number [facility] DEPARTMENT OF [address] [place] [address] PATHOLOGY AND GENOMIC MEDICINE [address] [address] HOSPITAL * Lipid panel (02/12/2019 11:10 AM CDT) [facility] Signature Cholesterol 205 (H) 0 - 199 mg/dL [facility] Triglycerides 235 (H) 0 - 149 mg/dL [facility] HDL cholesterol 61 40 - 9,999 mg/dL [facility] LDL cholesterol 132 (H)Comment: Result 0 - 99 mg/dL [place] obtained by direct LDL [place] measurement [facility] Lipid panel See below [place] interpretation Comment: [facility] Total Cholesterol [place] (mg/dL) [facility] LDL Cholesterol (mg/dL) <200 Desirable <100 Optimal 200-239Borderline -[id number] 29Near or above optimal >=240High 130-159Borderline- high 160-189High >=190Very high HDL Cholesterol (mg/dL) Triglycerides (mg/dL) <40Low <150 Normal >=60 High 150-199Borderline- high 200-499High >=500Very high Risk Catergories that modify LDL goals. Risk Catergories LDL goal (mg/dL) CHD and CHD risk equivalent <100 (10-year risk >20%) Multiple (2+) risk factors <130 (10-year risk=<20%) 0-1 risk factors <160 (<10-year risk) Defining levels of lipids in metabolic syndrome Triglycerides >=150 mg/dL HDL Cholesterol Men <40 mg/dL Women <50 mg/dL Non-HDL cholesterol is a second target for therapy in persons with high triglycerides (>=200 mg/dL) Specimen Plasma specimen Performing Organization Address City/[facility]/Zipcode Phone Number [facility] OF [address] [place] [address] PATHOLOGY AND GENOMIC MEDICINE [facility] [address] * XR Abdomen 1 Vw Portable (02/12/2019 10:37 AM CDT) Specimen Narrative Performed At EXAMINATION:XR ABDOMEN 1 VW PORTABLE [facility] CLINICAL HISTORY:NG tube placement. COMPARISON:None. FINDINGS: XR ABDOMEN 1 VW PORTABLE images are submitted. The bowel gas pattern is nonspecific. No pathologic masses or calcifications are identified. The nasogastric tube is going into the stomach. IMPRESSION: 1. The stomach is distended. 2. The nasogastric tube extends into the stomach. [id number] Procedure Note Interface, Radiology Results Incoming - 02/12/2019 11:22 AM CDT EXAMINATION: XR ABDOMEN 1 VW PORTABLE CLINICAL HISTORY: NG tube placement. COMPARISON: None. FINDINGS: XR ABDOMEN 1 VW PORTABLE images are submitted. The bowel gas pattern is nonspecific. No pathologic masses or calcifications are identified. The nasogastric tube is going into the stomach. IMPRESSION: 1. The stomach is distended. 2. The nasogastric tube extends into the stomach. [id number] Performing Organization Address [facility] Phone Number [facility] [address] [place] [address] * XR Chest 1 Vw (02/12/2019 10:17 AM CDT) Only the most recent of 2 results within the time period is included. Specimen Narrative Performed At EXAMINATION:XR CHEST 1 VW [facility] CLINICAL HISTORY:s p intubation COMPARISON:2 hours earlier IMPRESSION: ET tube tip is 3.3 cm above the best. Enteric tube courses towards the stomach, tip below the radiographic field. The lungs and pleural spaces are clear.The cardiomediastinal silhouette is within normal limits.There is no significant skeletal finding. [id number] Procedure Note Interface, Radiology Results Incoming - 02/12/2019 10:32 AM CDT EXAMINATION: XR CHEST 1 VW CLINICAL HISTORY: s p intubation COMPARISON: 2 hours earlier IMPRESSION: ET tube tip is 3.3 cm above the best. Enteric tube courses towards the stomach, tip below the radiographic field. The lungs and pleural spaces are clear. The cardiomediastinal silhouette is within normal limits. There is no significant skeletal finding. [id number] Performing Organization Address City/[facility]/[place] [address] * Streptococcus pneumoniae urinary antigen (02/12/2019 10:04 AM CDT) Strep pneumo Negative for Streptococcus [place] urinary Ag pneumoniae antigen. [facility] Comment: HOSPITAL Specimen Information Specimen Source: Urine Specimen Site: Catheterized Specimen Urine - Catheterized Performing Organization Address City/[facility] Phone Number [facility] [place] [address] PATHOLOGY AND GENOMIC MEDICINE [place] [address] * Legionella urinary antigen (02/12/2019 10:04 AM CDT) Legionella Negative for Legionella [place] urinary antigen serogroup 1 antigen. [facility] Comment: HOSPITAL Specimen Information Specimen Source: Urine Specimen Site: Catheterized Specimen Urine - Catheterized Performing Organization Address [facility] Phone Number [facility] [place] [address] PATHOLOGY AND GENOMIC MEDICINE [address] * Urine drugs of abuse screen (02/12/2019 10:04 AM CDT) Amphetamine Negative [place] screen, urine [facility] Barbiturate Negative [place] screen, urine [facility] Benzodiazepine Negative [place] screen, urine [facility] Cocaine screen, Negative [place] urine [facility] Methadone Negative [place] metabolite [facility] (EDDP), urine [facility] Opiates screen, Negative [place] urine [facility] Oxycodone Negative [place] screen, urine [facility] Phencyclidine Negative [place] screen, urine [facility] Cannabinoid Negative [place] screen, urine Comment: [facility] Drug screen minimum [place] concentration of detectability HOSPITAL Amphetamines 1000 ng/mL Barbiturates 200 ng/mL Benzodiazepines 300 ng/mL Cocaine 300 ng/mL Methadone 300 ng/mL Opiates 300 ng/mL Oxycodone 300 ng/mL Phencyclidine 25 ng/mL Cannabinoids 50 ng/mL Tricyclics 1000 ng/mL Results are from screening tests and should only be used for medical evaluation. Drug testing for legal purposes requires definitive (or confirmatory) testing methods, which are available upon request. Contact the laboratory if definitive testing is required. Specimen Urine Performing Organization Address City/State/Zipcode Phone Number [facility] DEPARTMENT OF [address] [facility] [place] [id number] PATHOLOGY AND GENOMIC MEDICINE [facility] [address] [facility] [address] * Influenza antigen test, reflex negative to RPP (02/12/2019 9:42 AM CDT) Influenza Negative for Influenza A/B [place] antigen antigen. [facility] Comment: [place] Specimen Information HOSPITAL Specimen Source: Nares Specimen Site: Right Specimen Nares - Right Performing Organization Address City/State/Zipcode Phone Number [facility] DEPARTMENT OF [address] [facility] [place] [address] PATHOLOGY AND GENOMIC MEDICINE [facility] [address] * Urinalysis screen and microscopy, with reflex to culture (02/12/2019 9:41 AM CDT) Only the most recent of 2 results within the time period is included. Specimen site Catheterized [facility] Color, UA Straw [facility] Appearance, UA Clear [facility] Specific 1.003 1.001 - 1.035 [place] gravity, [facility] pH, UA 6.0 5.0 - 8.5 [facility] Protein, UA Negative Negative [facility] Glucose, UA 3+ (A) Negative [facility] Ketones, UA Negative Negative [facility] Bilirubin, UA Negative Negative [facility] Blood, UA Negative Negative [facility] Nitrite, UA Negative Negative [facility] Urobilinogen, Negative <2.0 [facility] Leukocyte Negative Negative [place] esterase, UA [facility] Epithelial Many /HPF [place] cells, UA [facility] WBC, UA 1 0 - 5 /HPF [facility] RBC, UA 1 0 - 5 /HPF [facility] Bacteria, UA Trace None seen [facility] Yeast, UA None seen [facility] Yeast with None seen [place] pseudohyphae, [place] UA [facility] Hyaline casts, 4 /LPF [facility] Specimen Urine Performing Organization Address City/State/Zipcode Phone Number [facility] DEPARTMENT OF [address] [place] [address] PATHOLOGY AND GENOMIC MEDICINE [facility] [address] [place] [address] HOSPITAL * hCG qualitative, urine screen (02/12/2019 9:41 AM CDT) hCG Negative Negative [place] qualitative, Comment: [facility] urine The manufacturers stated [place] sensitivity of HcG test for HOSPITAL serum is >/=10 mIU/ml and urine is >/=20mIU/ml. Specimen Urine Performing Organization Address [facility] Phone Number [facility] [address] [place] [address] PATHOLOGY AND GENOMIC MEDICINE [address] * Venous blood gas (02/12/2019 7:34 AM CDT) Meter Tester JDZD [facility] Collection site L HAND [facility] O2 therapy BIPAP [facility] Respiratory 16 bpm [place] rate [facility] pH, venous 7.275 (L) 7.320 - 7.420 units [facility] pCO2, venous 53.5 (H) 45.0 - 51.0 mmHg [facility] pO2, venous 34.6 25.0 - 40.0 mmHg [facility] O2 saturation, 57.8 40.0 - 70.0 % [place] venous [facility] Base excess, -1.9 -2.0 - 2.0 mEq/L [place] venous [facility] Bicarbonate 24.9 21.0 - 28.0 mEq/L [facility] O2 content 10.2 VOL% [facility] Carboxyhemoglob 0.7 0.0 - 1.4 % [place] in Comment: [facility] Reference Ranges: [place] Carboxyhemoglobin [facility] Non smoker: 0.0 - 2.0% Smoker: 2.1 - 5.0% Heavy smoker: 5.1 - 9% Methemoglobin 0.9 0.0 - 1.0 % [facility] Hemoglobin, 12.8 12.0 - 16.0 g/dL [place] blood gas [facility] Specimen Blood Performing Organization Address City/State/Zipcode Phone Number [facility] DEPARTMENT OF [address] [place] [address] PATHOLOGY AND GENOMIC MEDICINE [facility] [address] * ECG ED Preliminary Interpretation - Not an Order (02/12/2019 7:03 AM CDT) Narrative Performed At Jj Robin Jr., MD 02/12/20192:02 PM ECG ED Preliminary Interpretation - Not an Order Performed by: Jj Robin Jr., MD Authorized by: Jj Robin Jr., MD ECG reviewed by ED Physician in the absence of a director of development and marketing: yes Interpretation: Interpretation: abnormal Rate: ECG rate:130 ECG rate assessment: tachycardic Rhythm: Rhythm: sinus rhythm Ectopy: Ectopy: none QRS: QRS axis:Normal * CRITICAL CARE (02/12/2019 7:03 AM CDT) Narrative Performed At Jj Robin Jr., MD 02/12/20192:02 PM Critical Care Performed by: Jj Robin Jr., MD Authorized by: Jj Robin Jr., MD Critical care provider statement: Critical care time (minutes):40 Critical care time was exclusive of:Separately billable procedures and treating other patients and teaching time Critical care was necessary to treat or prevent imminent or life-threatening deterioration of the following conditions:Respiratory failure Critical care was time spent personally by me on the following activities:Development of treatment plan with patient or surrogate, discussions with consultants, discussions with primary provider, evaluation of patient's response to treatment, examination of patient, interpretation of cardiac output measurements, obtaining history from patient or surrogate, ordering and performing treatments and interventions, ordering and review of laboratory studies, ordering and review of radiographic studies, pulse oximetry, re-evaluation of patient's condition, review of old charts, transcutaneous pacing and ventilator management Cassius 'yes' if you are taking over critical care for this patient from another provider.: no * Intubation (02/12/2019 7:03 AM CDT) Narrative Performed At Jj Robin Jr., MD 02/12/20192:02 PM Intubation Performed by: Jj Robin Jr., MD Authorized by: Jj Robin Jr., MD Consent: Consent obtained:Emergent situation Consent given by:Patient and spouse Risks discussed:Aspiration, bleeding, , brain injury, dental trauma, hypoxia, laryngeal injury and pneumothorax Alternatives discussed:No treatment [place] protocol: Procedure explained and questions answered to patient or proxy's satisfaction: yes Relevant documents present and verified: yes Test results available and properly labeled: yes Imaging studies available: yes Required blood products, implants, devices, and special equipment available: yes Immediately prior to procedure, a time out was called: yes Patient identity confirmed:Provided demographic data Pre-procedure details: Patient status:Awake Mallampati score:2 Pretreatment medications:None Induction: ketamine. Paralytics:Rocuronium Procedure details: Preoxygenation:BiPAP CPR in progress: no Intubation method:Oral Technique:Video laryngoscopy Laryngoscope blade:Mac 3 Grade view:1 Difficult airway?: No Tube size (mm):7.5 Tube type:Cuffed Number of attempts:1 Ventilation between attempts: no Cricoid pressure: no Tube visualized through cords: yes Placement assessment: ETT to lip:23 Tube secured with:ETT glez Breath sounds:Equal Placement verification: chest rise, condensation, CXR verification, direct visualization, equal breath sounds, ETCO2 detector and tube exhalation CXR findings:ETT in proper place Post-procedure details: Patient tolerance of procedure:Tolerated well, no immediate complications * SURESWAB(R), CANDIDIASIS, PCR (12/22/2018 11:45 AM CDT) C. albicans, NOT DETECTED [facility] C. glabrata, NOT DETECTED [facility] C. tropicalis, NOT DETECTED [facility] C. NOT DETECTED FOCUS parapsilosis, Comment: DIAGNOSTICS DNA REFERENCE RANGE: NOT DETECTED This test was developed and its analytical performance characteristics have been determined by [facility]. It has not been cleared or approved by FDA. This assay has been validated pursuant to the CLIA regulations and is used for clinical purposes. Specimen Swab Resulting Agency Comment Performing Organization Information: Site ID: [id number] Name: [facility] Address: [address] [place] [address], [place] [address] Director: Betito Dhillon MD Performing Organization Address City/State/Zipcode Phone Number [facility] [address] [place], [place] [phone] * SURESWAB(R) BACTERIAL VAGINOSIS DNA, QN, PCR (12/22/2018 11:45 AM CDT) BV category SUPPORTIVE (A) [facility] Lactobacillus NOT DETECTED Log (cells/mL) [facility] Atopobium 7.8 Log (cells/mL) [facility] vaginae [facility] Megasphaera 7.5 Log (cells/mL) [facility] Gardnerella 7.8 Log (cells/mL) FOC[facility] vaginalis Comment: DIAGNOSTICS REFERENCE RANGE: BV CATEGORY: NOT SUPPORTIVE NOT SUPPORTIVE OF BV: The pattern of results is not supportive of a diagnosis of BV: 1) Presence of Lactobacillus spp., G. vaginalis levels less than 6.0 log cells/mL, and absence of A. vaginae and Megasphaera spp; or 2) Absence of all targeted organisms; or 3) Absence of Lactobacillus spp. plus G. vaginalis detected at levels less than 6.0 log cells/mL and absence of A. vaginae and Megasphaera spp. EQUIVOCAL FOR BV: The pattern of results is neither supportive nor not supportive of a diagnosis of BV. The patient may be in transition into or out of BV: Presence of Lactobacillus spp. plus G. vaginalis (greater or equal to 6.0 log cells/mL) and/or one of the other BV-associated pathogens. SUPPORTIVE OF BV: The pattern of results is supportive of a diagnosis of BV: Absence of Lactobacillus spp. and presence of G. vaginalis greater than or equal to 6.0 log cells/mL and/or one or both of the other BV-associated pathogens. Concentration for Lactobacilli (L. acidophilus/crispatus, L. jensenii) are collectively reported under the term "Lactobacillus spp.", as these species are among the peroxide producing Lactobacilli thought to be protective against bacterial vaginosis. Atopobium vaginae, Megasphaera spp., and Gardnerella (greater than 6.0 log cells/mL) have been associated with vaginosis when present in the absence of peroxidase producing Lactobacilli. This test was developed and its analytical performance characteristics have been determined by [facility]. It has not been cleared or approved by FDA. This assay has been validated pursuant to the CLIA regulations and is used for clinical purposes. Specimen Swab Resulting Agency Comment Performing Organization Information: Site ID: [id number] Name: [facility] Address: [address] [place] [id number] Director: Betito Dhillon MD Performing Organization Address City/State/Zipcode Phone Number [employer] [address] [place] [address] [phone] * THINPREP TIS PAP AND HPV mRNA E6/E7 REFLEX HPV 16,18/45 (12/22/2018 10:48 AM CDT) Clinical None given [employer] information [employer] [place] Date of last NONE GIVEN [employer] menstrual DIAGNOSTICS period ARANGO Prev. pap: NONE GIVEN [facility]AGNOSTICS [place] Prev. bx: NONE GIVEN [employer] [facility]AGNO[facility] [place] Source Vagina [employer] [facility] [place] Statement of Comment: [facility] adequacy Satisfactory for evaluation. DIAGNOSTICS Endocervical/transformation [place] zone component absent. Interpretation/ Comment: Negative for [facility] result: intraepithelial lesion or DIAGNOSTICS malignancy. [place] Infection Comment: [facility] Shift in vaginal geo DIAGNOSTICS suggestive of bacterial [place] vaginosis. Comment Comment: [facility] This Pap test has been DIAGNOSTICS evaluated with computer Mira Dx assisted technology. [employer] Comment: [facility] t J, CT(ASCP) DIAGNOSTICS CT screening location: [place] [address] [address], [facility] [address] Comment Comment: [facility] EXPLANATORY NOTE: DIAGNOSTICS The Pap is a screening test [place] for cervical cancer. It is not a diagnostic test and is subject to false negative and false positive results. It is most reliable when a satisfactory sample, regularly obtained, is submitted with relevant clinical findings and history, and when the Pap result is evaluated along with historic and current clinical information. HPV mRNA e6/e7 Not Detected Not Detected [facility] Comment: [facility]NO[facility]ICS-MAHESH This test was performed using ING II the APTIMA HPV Assay ([employer] This assay detects E6/E7 viral messenger RNA (mRNA) from 14 high-risk HPV types (16,18,31,33,35,39,45,51,52,56 ,58,59,66,68). The analytical performance characteristics of this assay have been determined by [facility]. The modifications have not been cleared or approved by the FDA. This assay has been validated pursuant to the CLIA regulations and is used for clinical purposes. Specimen Swab Resulting Agency Comment Performing Organization Information: Site ID: [id number] Name: [facility] Address: [address] [place] [id number] Director: Dr. Tyler Guan Site ID: [id number] Name: [facility] Address: [address] [place] [id number] Director: Ameena Green Performing Organization Address City/[facility] Phone Number [address] [place] [address] II * Mammo Breast Screen Tomosynthesis Bilateral (12/22/2018 10:23 AM CDT) Specimen Narrative Performed At PROCEDURE: MAMMO BREAST SCREEN TOMOSYNTHESIS BILATERAL iNEWiT Computer aided detection was utilized for the interpretation of the digital bilateral screening mammography with tomosynthesis. COMPARISON: Prior studies dating back to 10/15/2016 DENSITY: There are scattered areas of fibroglandular density. There is no evidence of new irregular masses, architectural distortions or grouped calcifications. IMPRESSION:No mammographic evidence of malignancy. RECOMMENDATION: Comparison with physical exam and annual screening mammography. BI-RADS 1:NEGATIVE This facility is accredited by the [employer] for Mammography. A negative x-ray report should not delay biopsy if a dominant or clinically suspicious mass is present.Not all cancers are identified by x-ray. [id number] Performing Organization Address City/State/Zipcode Phone Number [facility] [address] [place] [address] * US Pelvic Transabdominal (03/26/2018 12:28 PM CDT) Specimen Narrative Performed At EXAMINATION: iNEWiT US PELVIC TRANSABDOMINAL CLINICAL HISTORY: AUBcramping COMPARISON: None. TECHNIQUE: An emergency study was performed at 1057 hours. Transabdominal and endovaginal sonographic images of the pelvis were obtained. Grayscale, color Doppler, and spectral waveform analysis of the ovarian vessels was performed. FINDINGS: The uterus is retroverted, 13.9 x 7.6 x 6.8 cm. A 2.5 x 2.4 x 2.8 cm hypoechoic mass is in the fundus of the uterus. A smaller, similar-appearing, 2.0 x 1.2 x 1.5 cm nodule is in the left myometrium . Endometrial complex measures 17 mm, considered to be normal in a premenopausal woman. The ovaries are normal in size and shape, with the right measuring 3.1 x 2.4 x 2.5 cm, the left, 2.2 x 3.3 x 3.1 cm. Blood flow is documented in both ovaries. Small cysts are in both ovaries, on the right, it is 11-18 mm, on the left, 10-17 mm. A small amount of free fluid is in the cul-de-sac. There are no adnexal masses. IMPRESSION: Small bilateral ovarian cysts. 2 masses in the uterus, most likely fibroids. Free fluid, probably physiological. [id number] Procedure Note Hm Interface, Radiology Results Incoming - 03/26/2018 3:40 PM CDT EXAMINATION: US PELVIC TRANSABDOMINAL CLINICAL HISTORY: AUB cramping COMPARISON: None. TECHNIQUE: An emergency study was performed at 1057 hours. Transabdominal and endovaginal sonographic images of the pelvis were obtained. Grayscale, color Doppler, and spectral waveform analysis of the ovarian vessels was performed. FINDINGS: The uterus is retroverted, 13.9 x 7.6 x 6.8 cm. A 2.5 x 2.4 x 2.8 cm hypoechoic mass is in the fundus of the uterus. A smaller, similar-appearing, 2.0 x 1.2 x 1.5 cm nodule is in the left myometrium . Endometrial complex measures 17 mm, considered to be normal in a premenopausal woman. The ovaries are normal in size and shape, with the right measuring 3.1 x 2.4 x 2.5 cm, the left, 2.2 x 3.3 x 3.1 cm. Blood flow is documented in both ovaries. Small cysts are in both ovaries, on the right, it is 11-18 mm, on the left, 10-17 mm. A small amount of free fluid is in the cul-de-sac. There are no adnexal masses. IMPRESSION: Small bilateral ovarian cysts. 2 masses in the uterus, most likely fibroids. Free fluid, probably physiological. [id number] Performing Organization Address City/State/Zipcode Phone Number [facility] [address] [place] [place] [address] * US Pelvic Transvaginal (03/26/2018 12:28 PM CDT) Specimen Narrative Performed At EXAMINATION:[facility] CLINICAL H[facility]ORY:aubcramping COMPARISON:None. TECHNIQUE:Transabdominal and endovaginal sonographic images of the pelvis were obtained. Grayscale, color Doppler, and spectral waveform analysis of the ovarian vessels was performed. FINDINGS: The uterus measures 13.9 x 7.6 x 6.8 cm. The endometrial stripe measures 0.8 cm.. The right ovary measures 3.7 x 2.4 x 2.5 cm . Normal Doppler flow was present. The left ovary measures 3.1 x 3.3 x 2.2 cm.. Normal Doppler flow was present. TRANSVAGINAL IMAGING: The uterine endometrium measures 0.8 cm.Small amount of free fluid is seen within the cul-de-sac. There is a uterine fibroid which measures 2.8 cm. A second fibroid measures 2.0 cm. The right ovary is unremarkable. Multiple follicles are seen within the right ovary. The left ovary has a 1.87 cm cyst with low-level echoes most likely representing a hemorrhagic cyst. IMPRESSION: 1. The uterine endometrium is not enlarged. 2. There are multiple uterine fibroids present. The largest fibroid measures 2.8 cm. A second fibroid measures 2.0 cm. 3. There is no evidence of any ovarian torsion. 4. The left ovary has a 1.8 cm complex cyst most likely representing a hemorrhagic cyst. [id number] Procedure Note Interface, Radiology Results Incoming - 03/26/2018 12:55 PM CDT EXAMINATION: US PELVIC TRANSVAGINAL CLINICAL HISTORY: aub cramping COMPARISON: None. TECHNIQUE:Transabdominal and endovaginal sonographic images of the pelvis were obtained. Grayscale, color Doppler, and spectral waveform analysis of the ovarian vessels was performed. FINDINGS: The uterus measures 13.9 x 7.6 x 6.8 cm. The endometrial stripe measures 0.8 cm.. The right ovary measures 3.7 x 2.4 x 2.5 cm . Normal Doppler flow was present. The left ovary measures 3.1 x 3.3 x 2.2 cm.. Normal Doppler flow was present. TRANSVAGINAL IMAGING: The uterine endometrium measures 0.8 cm. Small amount of free fluid is seen within the cul-de-sac. There is a uterine fibroid which measures 2.8 cm. A second fibroid measures 2.0 cm. The right ovary is unremarkable. Multiple follicles are seen within the right ovary. The left ovary has a 1.87 cm cyst with low-level echoes most likely representing a hemorrhagic cyst. IMPRESSION: 1. The uterine endometrium is not enlarged. 2. There are multiple uterine fibroids present. The largest fibroid measures 2.8 cm. A second fibroid measures 2.0 cm. 3. There is no evidence of any ovarian torsion. 4. The left ovary has a 1.8 cm complex cyst most likely representing a hemorrhagic cyst. [id number] Performing Organization Address City/[facility]/Zipcode Phone Number [facility] [address] [place] [address] * Urine culture (03/26/2018 10:58 AM CDT) Urine culture Mixed Gram positive geo [facility] DEPARTMENT isolate 10-5 cfu/ml OF PATHOLOGY (A) AND GENOMIC Comment: MEDICINE Specimen Information Specimen Source: Urine Specimen Site: Clean catch Specimen Urine Performing Organization Address City/State/Zipcode Phone Number [facility] DEPARTMENT OF [address] [place] [address] PATHOLOGY AND GENOMIC MEDICINE after 02/25/2018 Insurance Type Payer Benefit Subscriber ID Effective Phone Address Plan / Dates Group PPO BCBS BCBS OUT xxxxxxxxxxxxxx 2019-P OF STATE resent Advance Directives For more information, please contact: [phone] 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
--- OUTSIDE RECORDS SUMMARY | 2019-02-26 11:19 | XMS REPORT | Continuity of Care Document ---
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 CHEST PAIN Active 10/19/[address] [facility] Thymus Resolved Problem 10/22/[address] [facility] HTN (Confirmed) Resolved Problem 08/03/2016 [facility] Asthma in adult Resolved Problem 08/03/2016 [facility] Neuropathy Resolved Problem 08/03/2016 [facility] ACUTE INFARCTION OF INTESTINE, PART AND Active [facility] Medications Medication Details Route Status Patient Instructions Ordering Provider Order Date Source Ondansetron 4 MG Oral Tablet [Zofran] 4 mg=1 tab, PO, BID, X 5 day, # 10 tab, 0 Refill(s) Active 07/31/2016 [facility] tramadol hydrochloride 50 MG Oral Tablet 50 mg=1 tab, PO, Q6H, PRN Pain Score 4-6, X 7 day, # 10 tab, 0 Refill(s) Active 07/31/2016 [facility] heparin 5,000 unit, 1 mL, Route: SUB-Q, Drug form: INJ, Q8H, Dosing Weight 78.182, kg, Start date: 07/30/16 16:00:00 QA TESTER, Duration: 30 day, Stop date: 08/29/16 8:00:00 CDTNotes: porcine heparin No Longer Active 07/30/2016 [facility] heparin sodium, porcine 2500 UNT/ML Injectable Solution 5,000 unit, Route: SUB-Q, Drug form: INJ, Q8H, Dosing Weight 78.182, kg, Start date: 07/30/16 16:00:00 QA TESTER, Duration: 30 day, Stop date: 08/29/16 8:00:00 CDT Inactive 07/30/2016 [facility] Morphine 2 mg, 1 mL, Route: IVP, Drug form: INJ, Q4H, Dosing Weight 78.182, kg, PRN Pain Score 7-10, Start date: 07/30/16 12:12:00 QA TESTER, Duration: 30 day, Stop date: 08/29/16 12:11:00 CDTNotes: (Same as:MORPhine Sulfate) No Longer Active 07/30/2016 [facility] Tramadol 50 mg, 1 tab, Route: PO, Drug form: TAB, Q6H, Dosing Weight 78.182, kg, PRN Pain Score 1-3, Start date: 07/30/16 12:11:00 QA TESTER, Duration: 30 day, Stop date: 08/29/16 12:10:00 CDTNotes: Not to exceed 4 00mg/day. (Same As: Ultram) No Longer Active 07/30/2016 [facility] Tylenol 650 mg, 2 tab, Route: PO, Drug form: TAB, Q6H, Dosing Weight 78.182, kg, PRN Pain Score 1-3, Start date: 07/30/16 12:10:00 QA TESTER, Duration: 30 day, Stop date: 08/29/16 12:09:00 CDTNotes: Do not exceed 4 gm/day. (Same as: Tylenol) No Longer Active 07/30/2016 [facility] Reglan 10 mg, Route: IVP, Drug form: INJ, ONCE, Dosing Weight 78.182, kg, Priority: STAT, Start date: 07/30/16 5:15:00 QA TESTER, Stop date: 07/30/16 5:15:00 QA TESTER Inactive 07/30/2016 [facility] Ondansetron 4 mg, Route: IVP, Drug form: INJ, ONCE, Dosing Weight 78.182, kg, Priority: STAT, Start date: 07/30/16 4:30:00 QA TESTER, Stop date: 07/30/16 4:30:00 QA TESTER Inactive 07/30/2016 [facility] Morphine 4 mg, Route: IVP, ONCE, Dosing Weight 78.182, kg, Priority: STAT, Start date: 07/30/16 4:30:00 QA TESTER, Stop date: 07/30/16 4:30:00 QA TESTER Inactive 07/30/2016 [facility] Lactated Ringers 1,000 mL 1,000 mL, Rate: 75 ml/hr, Infuse over: 13.3 hr, Route: IV, Dosing Weight 78.182 kg, Total Volume: 1,000, Start date: 07/30/16 4:30:00 QA TESTER, Duration: 30 day, Stop date: 08/29/16 4:29:00 CDT No Longer Active 07/30/2016 [facility] Ondansetron 4 mg, 2 mL, Route: IVP, Drug form: INJ, ONCE, Dosing Weight 78.182, kg, Priority: STAT, Start date: 07/30/16 3:10:00 QA TESTER, Stop date: 07/30/16 3:10:00 CSTNotes: (Same as: Zofran) MEDICATION WASTE * Product Size: 4 mg Product Wasted: ___ mg Inactive 07/30/2016 [facility] Morphine 4 mg, 1 mL, Route: IVP, Drug form: INJ, ONCE, Dosing Weight 78.182, kg, Priority: STAT, Start date: 07/30/16 3:10:00 QA TESTER, Stop date: 07/30/16 3:10:00 CSTNotes: (Same as:MORPhine Sulfate) Inactive 07/30/2016 [facility] RhoGam (MAR Charting) 300 microgram, Route: IM, ONCE, Dosing Weight 78.182, kg, Start date: 07/30/16 2:57:00 QA TESTER, Stop date: 07/30/16 2:57:00 QA TESTER Inactive 07/30/2016 [facility] Aspirin 324 mg, 4 tab, Route: PO, Drug form: CHEWTAB, ONCE, Dosing Weight 75, kg, Priority: STAT, Start date: 10/19/14 10:52:00, Stop date: 10/19/14 10:52:00Notes: Take with food. Inactive 10/19/[address] [facility] Saline Flush 0.9% 10 mL, Route: IVP, Drug Form: INJ, Dosing Weight 75, kg, PRN, PRN Line Flush, Start date: 10/19/14 10:52:00, Duration: 30 day, Stop date: 06/11/15 10:51:00Notes: (Same as: BD Posiflush) Inactive 10/19/[address] [facility] gabapentin 100 MG Oral Capsule 100 mg=1 cap, PO, TID, 0 Refill(s) Active 10/19/[address] [facility] nebivolol 10 MG Oral Tablet [Bystolic] 10 mg=1 tab, PO, Daily, # 30 tab, 0 Refill(s) Active 10/19/[address] [facility] Allergies, Adverse Reactions, Alerts No Known Medication Allergies Immunizations No Data Provided for This Section Results Order Name Results Value Reference Range Date Interpretation Comments Source CHEM PANEL Phosphorus 4.0 2.5 - 4.5 07/31/2016 [facility] CHEM PANEL Magnesium Lvl 1.9 1.8 - 2.4 07/31/2016 [facility] CHEM PANEL eGFR 86 07/31/2016 Result Comment: The eGFR is calculated using the CKD-EPI formula. In most young, healthy individuals the eGFR will be >90 mL/min/1.73m2. The eGFR declines with age. An eGFR of 60-89 may be normal in some populations, particularly the elderly, for whom the CKD-EPI formula has not been extensively validated. Use of the eGFR is not recommended in the following populations:

Individuals with unstable creatinine concentrations, including patients and those with serious co-morbid conditions.

Patients with extremes in muscle mass or diet.

The data above are obtained from the National Kidney Disease Education Program (NKDEP) which additionally recommends that when the eGFR is used in patients with extremes of body mass index for purposes of drug dosing, the eGFR should be multiplied by the estimated BMI. [facility] CHEM PANEL CO2 26 24 - 32 07/31/2016 [facility] CHEM PANEL Chloride Lvl 103 95 - 109 07/31/2016 [facility] CHEM PANEL Sodium Lvl 137 135 - 145 07/31/2016 [facility] CHEM PANEL Creatinine Lvl 0.94 0.50 - 1.40 07/31/2016 [facility] CHEM PANEL BUN 13 7 - 22 07/31/2016 [facility] CHEM PANEL Potassium Lvl 3.4 3.5 - 5.1 07/31/2016 [facility] CHEM PANEL Calcium Lvl 8.4 8.5 - 10.5 07/31/2016 [facility] CHEM PANEL Glucose Lvl 134 70 - 99 07/31/2016 [facility] CHEM PANEL AGAP 11.4 10.0 - 20.0 07/31/2016 [facility] HEMATOLOGY Segs 58.8 45.0 - 75.0 07/31/2016 [facility] HEMATOLOGY Lymphocytes 32.8 20.0 - 40.0 07/31/2016 [facility] HEMATOLOGY Eosinophils 2.1 0.0 - 4.0 07/31/2016 [facility] HEMATOLOGY Monocytes 5.7 2.0 - 12.0 07/31/2016 [facility] HEMATOLOGY Basophils 0.6 0.0 - 1.0 07/31/2016 [facility] HEMATOLOGY Segs-Bands # 4.6 1.5 - 8.1 07/31/2016 [facility] HEMATOLOGY Monocytes # 0.4 0.0 - 0.8 07/31/2016 [facility] HEMATOLOGY Lymphocytes # 2.5 1.0 - 5.5 07/31/2016 [facility] HEMATOLOGY Eosinophils # 0.2 0.0 - 0.5 07/31/2016 [facility] HEMATOLOGY Hct 33.9 36.0 - 48.0 07/31/2016 [facility] HEMATOLOGY Hgb 11.3 12.0 - 16.0 07/31/2016 [facility] HEMATOLOGY MCV 89.9 80.0 - 98.0 07/31/2016 [facility] HEMATOLOGY MCHC 33.3 32.0 - 36.0 07/31/2016 [facility] HEMATOLOGY MCH 29.9 27.0 - 31.0 07/31/2016 [facility] HEMATOLOGY Platelet 265 133 - 450 07/31/2016 [facility] HEMATOLOGY RDW 13.9 11.5 - 14.5 07/31/2016 [facility] HEMATOLOGY MPV 8.2 7.4 - 10.4 07/31/2016 [facility] HEMATOLOGY WBC 7.8 3.7 - 10.4 07/31/2016 [facility] HEMATOLOGY RBC 3.77 4.20 - 5.40 07/31/2016 [facility] PARATHYROID PROFILE Ca Ion WB 1.14 1.05 - 1.25 07/31/2016 [facility] PARATHYROID PROFILE Ca Norm WB 1.13 1.05 - 1.25 07/31/2016 [facility] CHEM PANEL Lactic Acid Lvl 1.6 0.5 - 2.2 07/30/2016 [facility] ELECTROLYTES AGAP 11.7 10.0 - 20.0 07/30/2016 [facility] ELECTROLYTES Creatinine Lvl 0.88 0.50 - 1.40 07/30/2016 [facility] ELECTROLYTES Sodium Lvl 142 135 - 145 07/30/2016 [facility] ELECTROLYTES eGFR 93 07/30/2016 Result Comment: The eGFR is calculated using the CKD-EPI formula. In most young, healthy individuals the eGFR will be >90 mL/min/1.73m2. The eGFR declines with age. An eGFR of 60-89 may be normal in some populations, particularly the elderly, for whom the CKD-EPI formula has not been extensively validated. Use of the eGFR is not recommended in the following populations:

Individuals with unstable creatinine concentrations, including patients and those with serious co-morbid conditions.

Patients with extremes in muscle mass or diet.

The data above are obtained from the National Kidney Disease Education Program (NKDEP) which additionally recommends that when the eGFR is used in patients with extremes of body mass index for purposes of drug dosing, the eGFR should be multiplied by the estimated BMI. [facility] ELECTROLYTES Glucose Lvl 163 70 - 99 07/30/2016 [facility] ELECTROLYTES BUN 9 7 - 22 07/30/2016 [facility] ELECTROLYTES Potassium Lvl 3.7 3.5 - 5.1 07/30/2016 [facility] ELECTROLYTES Chloride Lvl 107 95 - 109 07/30/2016 [facility] ELECTROLYTES CO2 27 24 - 32 07/30/2016 [facility] ELECTROLYTES Calcium Lvl 8.5 8.5 - 10.5 07/30/2016 [facility] HEMATOLOGY INR 0.96 0.85 - 1.17 07/30/2016 [facility] HEMATOLOGY PT 13.0 12.0 - 14.7 07/30/2016 [facility] HEMATOLOGY PTT 26.4 22.9 - 35.8 07/30/2016 [facility] HEMATOLOGY MCHC 34.4 32.0 - 36.0 07/30/2016 [facility] HEMATOLOGY RDW 13.8 11.5 - 14.5 07/30/2016 [facility] HEMATOLOGY Platelet 256 133 - 450 07/30/2016 [facility] HEMATOLOGY MPV 7.8 7.4 - 10.4 07/30/2016 [facility] HEMATOLOGY MCV 89.5 80.0 - 98.0 07/30/2016 [facility] HEMATOLOGY MCH 30.8 27.0 - 31.0 07/30/2016 [facility] HEMATOLOGY Hct 35.3 36.0 - 48.0 07/30/2016 [facility] HEMATOLOGY Hgb 12.1 12.0 - 16.0 07/30/2016 [facility] HEMATOLOGY RBC 3.94 4.20 - 5.40 07/30/2016 [facility] HEMATOLOGY WBC 10.5 3.7 - 10.4 07/30/2016 [facility] HEMATOLOGY Lymphocytes 19.1 20.0 - 40.0 07/30/2016 [facility] HEMATOLOGY Segs 73.6 45.0 - 75.0 07/30/2016 [facility] HEMATOLOGY Eosinophils # 0.1 0.0 - 0.5 07/30/2016 [facility] HEMATOLOGY Basophils # 0.1 0.0 - 0.2 07/30/2016 [facility] HEMATOLOGY Monocytes # 0.6 0.0 - 0.8 07/30/2016 [facility] HEMATOLOGY Segs-Bands # 7.7 1.5 - 8.1 07/30/2016 [facility] HEMATOLOGY Lymphocytes # 2.0 1.0 - 5.5 07/30/2016 [facility] HEMATOLOGY Basophils 0.5 0.0 - 1.0 07/30/2016 [facility] HEMATOLOGY Eosinophils 0.7 0.0 - 4.0 07/30/2016 [facility] HEMATOLOGY Monocytes 6.1 2.0 - 12.0 07/30/2016 [facility] URINE AND STOOL UA Urobilinogen <=1.0 mg/dL 0.1 - 1.0 10/19/[address] [facility] URINE AND STOOL UA Mucus Few /LPF None Seen /LPF 10/19/[address] [facility] URINE AND STOOL UA RBC 1 0 - 2 10/19/[address] [facility] URINE AND STOOL UA Sq Epi Few /LPF Few /LPF 10/19/[address] [facility] URINE AND STOOL UA Leuk Est Negative (10/19/14 11:03 AM) Negative 10/19/[address] [facility] URINE AND STOOL UA Nitrite Negative (10/19/14 11:03 AM) Negative 10/19/[address] [facility] URINE AND STOOL UA Glucose Negative mg/dL Negative mg/dL 10/19/[address] [facility] URINE AND STOOL UA Ketones Negative mg/dL Negative mg/dL 10/19/[address] [facility] URINE AND STOOL UA Protein Negative mg/dL Negative mg/dL 10/19/[address] [facility] URINE AND STOOL UA Blood Trace *ABN* (10/19/14 11:03 AM) Negative 10/19/[address] [facility] URINE AND STOOL UA Bili Negative *NA* (10/19/14 11:03 AM) Negative 10/19/[address] [facility] URINE AND STOOL UA Spec Grav 1.011 <=1.030 10/19/[address] [facility] URINE AND STOOL UA Turbidity Clear (10/19/14 11:03 AM) Clear 10/19/[address] [facility] URINE AND STOOL UA Color Yellow *NA* (10/19/14 11:03 AM) Yellow 10/19/[address] [facility] URINE AND STOOL UA pH 6.5 5.0 - 8.0 10/19/[address] [facility] CARDIAC ENZYMES Total CK 103 12 - 191 10/19/[address] [facility] CARDIAC ENZYMES CK MB <0.5 0.5 - 3.6 10/19/[address] [facility] CARDIAC ENZYMES BNP 15 <=100 pg/mL 10/19/2014 <sup>3</sup>Interpretive Data: Elevated results are in line with increasing severity of
congestive heart failure. Minor elevations between 100 and 300
may be seen with Myocardial Ischemia, Sodium retaining drugs,
and compensated/treated heart failure. [facility] CARDIAC ENZYMES Troponin-I <0.02 0.00 - 0.40 10/19/[address] [facility] CARDIAC ENZYMES CK MB Index <0.5 0.0 - 2.5 10/19/[address] [facility] CHEM PANEL Magnesium Lvl 2.0 1.8 - 2.4 10/19/[address] [facility] CHEM PANEL Phosphorus 2.3 2.5 - 4.5 10/19/[address] [facility] CHEM PANEL eGFR 106 10/19/2014 <sup>1</sup>Result Comment: The eGFR is calculated using the CKD-EPI formula. In most young, healthy individuals the eGFR will be >90 mL/min/1.73m2. The eGFR declines with age. An eGFR of 60-89 may be normal in some populations, particularly the elderly, for whom the CKD-EPI formula has not been extensively validated. Use of the eGFR is not recommended in the following populations:& lt;br/>
Individuals with unstable creatinine concentrations, including patients and those with serious co-morbid conditions.

Patients with extremes in muscle mass or diet.

The data above are obtained from the National Kidney Disease Education Program (NKDEP) which additionally recommends that when the eGFR is used in patients with extremes of body mass index for purposes of drug dosing, the eGFR should be multiplied by the estimated BMI. [facility] CHEM PANEL A/G Ratio 1.1 0.7 - 1.6 10/19/[address] [facility] CHEM PANEL Globulin 3.5 2.0 - 4.0 10/19/[address] [facility] CHEM PANEL B/C Ratio 15 6 - 25 10/19/[address] [facility] CHEM PANEL AGAP 9.7 10.0 - 20.0 10/19/[address] [facility] CHEM PANEL Alk Phos 51 39 - 136 10/19/[address] [facility] CHEM PANEL Bili Total 0.6 0.2 - 1.3 10/19/[address] [facility] CHEM PANEL AST 16 0 - 37 10/19/[address] [facility] CHEM PANEL Chloride Lvl 106 95 - 109 10/19/[address] [facility] CHEM PANEL Creatinine Lvl 0.8 0.5 - 1.4 10/19/[address] [facility] CHEM PANEL Potassium Lvl 3.7 3.5 - 5.1 10/19/[address] [facility] CHEM PANEL Sodium Lvl 139 135 - 145 10/19/[address] [facility] CHEM PANEL ALT 17 0 - 65 10/19/[address] [facility] CHEM PANEL Total Protein 7.3 6.4 - 8.4 10/19/[address] [facility] CHEM PANEL Albumin Lvl 3.8 3.5 - 5.0 10/19/[address] [facility] CHEM PANEL Calcium Lvl 8.4 8.5 - 10.5 10/19/[address] [facility] CHEM PANEL Glucose Lvl 101 70 - 99 10/19/2014 <sup>2</sup>Interpretive Data: Adult reference range values reflect the clinical guidelines
of the [place] [employer]. [facility] CHEM PANEL BUN 12 7 - 22 10/19/[address] [facility] CHEM PANEL CO2 27 24 - 32 10/19/[address] [facility] CHEM PANEL Lipase Lvl 67 73 - 393 10/19/[address] [facility] HEMATOLOGY MPV 9.1 7.4 - 10.4 10/19/[address] [facility] HEMATOLOGY RDW 13.8 11.5 - 14.5 10/19/2014 [facility] MCHC 32.9 32.0 - 36.0 10/19/[address] [facility] HEMATOLOGY Platelet 303 133 - 450 10/19/2014 [facility] MCV 93.4 80.0 - 98.0 10/19/2014 [facility] MCH 30.7 27.0 - 31.0 10/19/2014 [facility] Hgb 12.9 12.0 - 16.0 10/19/2014 [facility] Hct 39.0 36.0 - 48.0 10/19/2014 [facility] RBC 4.18 4.20 - 5.40 10/19/2014 [facility] WBC 3.3 3.7 - 10.4 10/19/2014 [facility] D-Dimer 0.58 10/19/2014 <sup>4</sup>Interpretive Data: In DIC, quantitative D-Dimer is generally greater than
0.66 ug/mL FEU. Values of quantitative D-Dimer less than
0.40 ug/mL FEU have been reported to be associated with a low
probability of deep vein thrombosis/pulmonary embolism.
This test alone should not be used to rule out DVT/PE. [facility] HEMATOLOGY Monocytes # 0.3 0.0 - 0.8 10/19/[address] [facility] HEMATOLOGY Eosinophils # 0.1 0.0 - 0.5 10/19/[address] [facility] HEMATOLOGY Basophils # 0.1 0.0 - 0.2 10/19/2014 [facility] Monocytes 8.8 2.0 - 12.0 10/19/2014 [facility] Segs 39.6 45.0 - 75.0 10/19/2014 [facility] Lymphocytes 48.1 20.0 - 40.0 10/19/2014 [facility] HEMATOLOGY Lymphocytes # 1.6 1.0 - 5.5 10/19/[address] [facility] HEMATOLOGY Eosinophils 1.9 0.0 - 4.0 10/19/[address] [facility] HEMATOLOGY Basophils 1.6 0.0 - 1.0 10/19/[address] [facility] HEMATOLOGY Segs-Bands # 1.3 1.5 - 8.1 10/19/[address] [facility] Pathology Reports No Data Provided for This Section Diagnostic Reports No Data Provided for This Section Consultation Notes No Data Provided for This Section Discharge Summaries No Data Provided for This Section History and Physicals No Data Provided for This Section Vital Signs Vital Sign Value Date Comments Source Respitory Rate 18 07/31/2016 [facility] Systolic (mm Hg) 142 07/31/2016 [facility] Diastolic (mm Hg) 80 07/31/2016 [facility] Heart Rate 72 07/31/2016 [facility] Temperature Oral (F) 97.7 F 07/31/2016 [facility] Systolic (mm Hg) 119 07/31/2016 [facility] Diastolic (mm Hg) 69 07/31/2016 [facility] Heart Rate 72 07/31/2016 [facility] Respitory Rate 18 07/31/2016 [facility] Temperature Oral (F) 97.6 F 07/31/2016 [facility] Heart Rate 70 07/31/2016 [facility] Respitory Rate 18 07/31/2016 [facility] Systolic (mm Hg) 114 07/31/2016 [facility] Diastolic (mm Hg) 68 07/31/2016 [facility] Temperature Oral (F) 97.6 F 07/31/2016 [facility] Height 157.48 cm 07/30/2016 [facility] BMI Calculated 31.53 07/30/2016 [facility] Weight 78.182 07/30/2016 [facility] Height 160.02 cm 07/30/2016 [facility] BMI Calculated 30.53 07/30/2016 [facility] Weight 78.182 07/30/2016 [facility] Temperature Oral (F) 98.1 F 10/19/[address] [facility] Systolic (mm Hg) 144 10/19/[address] [facility] Diastolic (mm Hg) 89 10/19/[address] [facility] Respitory Rate 14 10/19/[address] [facility] Systolic (mm Hg) 133 10/19/[address] [facility] Diastolic (mm Hg) 89 10/19/[address] [facility] Respitory Rate 15 10/19/[address] [facility] Systolic (mm Hg) 141 10/19/[address] [facility] Diastolic (mm Hg) 93 10/19/[address] [facility] Respitory Rate 11 10/19/[address] [facility] Heart Rate 78 10/19/[address] [facility] Temperature Oral (F) 98.2 F 10/19/[address] [facility] Heart Rate 76 10/19/[address] [facility] Weight 75 10/19/[address] [facility] BMI Calculated 28.38 10/19/[address] [facility] Height 162.56 cm 10/19/[address] [facility] Encounters Location Location Details Encounter Type Encounter Number Reason For Visit Attending Provider ADM Date DC Date Status Source [facility] [id number] Mook Jensen 10/19/2014 10/19/2014 [facility] Observation [id number] [employer] 07/30/2016 07/31/2016 [facility] Procedures Procedure Code Date Perfomer Comments Source Appendectomy [id number] [facility] Thymectomy [id number] [facility] Tonsillectomy [id number] [facility] Tubal ligation [id number] [facility] Assessment and Plan Assessment and Plan Date Source Extracted from:Title: EGS Discharge Summary Author: Juan Carlos Beyer MD Date: 07/31/16 Discharge Information Admission Diagnosis: omental infarct Discharge Diagnosis: omental infarct Hospital course: The patient is a 45F with PMHx of HTN, neuropathic pain, asthma, bronchitis who presents as a transfer from [facility] [place] with 2 day history of nausea/vomitting and RLQ abdominal pain and CT suggesting omental infarct. Zosyn given in ED. Significant labs on arrival include no leukocytosis, normal lactic acid level, electrolytes within normal limits. Patient was admitted to [facility] for observation *24hrs. Nausea improved, there was no additional vomiting. Labs continued to remain within normal limits, WBC 10.5->7.8, and regular diet was initiated and tolerated. On subsequent day, pain had nearly completely resolved except for some point tenderness which the patient stated was improving. She was discharged home with tramadol PRN for pain and zofran for nausea and instructions to follow up in EGS clinic. All questions and concerns were addressed with the patient. Discharge Plan Discharge Summary Plan Discharge Status: improved. Discharge instructions given: to patient. Prescriptions: written and given to patient. Course Improving. Education and Follow-up Counseled: family. 07/31/2016 [facility] Plan of Care No Data Provided for This Section Social History Social History Date Source Social History TypeResponse Substance Abuse Use: None. Alcohol Never Smoking Status Never smoker; Exposure to Tobacco Smoke None; Cigarette Smoking Last 365 Days No; Reg Smoking Cessation Counseling No 07/30/2016 [facility] Social History TypeResponse Smoking Status Reg Smoking Cessation Counseling No; Never smoker; Exposure to Tobacco Smoke None; Cigarette Smoking Last 365 Days No 10/19/[address] [facility] Family History No Data Provided for This Section Advance Directives No Data Provided for This Section Functional Status No Data Provided for This Section
--- OUTSIDE RECORDS SUMMARY | 2019-02-26 11:19 | XMS REPORT | Summary of Care ---
Author Organization Unknown Address Unknown Phone Unavailable Encounter JU Sparrow(SHAYY) [id number] Date(s): 10/19/14 - 10/19/14 [id number] [place] [address]- Discharge Diagnosis: Chest pain Discharge Disposition: Home Physician Attending: Mook Jensen MD Vital Signs 1 2 3 Most recent to oldest [Reference Range]: 162.56 cm (10/19/14 9:30 AM) Height 98.1 DegF (10/19/14 12:20 PM) 98.2 DegF (10/19/14 9:30 AM) Temperature Oral [96.4-99.1 DegF] 144/89 mmHg *HI* (10/19/14 12:20 PM) 133/89 mmHg (10/19/14 11:46 AM) 141/93 mmHg *HI* (10/19/14 11:21 AM) Blood Pressure [90-140/60-90 mmHg] 14 BRMIN (10/19/14 12:20 PM) 15 BRMIN (10/19/14 11:46 AM) 11 BRMIN *LOW* (10/19/14 11:21 AM) Respiratory Rate [14-20 BRMIN] 78 bpm (10/19/14 9:50 AM) 76 bpm (10/19/14 9:30 AM) Peripheral Pulse Rate [60-100 bpm] 75 kg (10/19/14 9:30 AM) Weight 28.38 m2 (10/19/14 9:30 AM) Body Mass Index Problem List Condition Effective Dates Status Health Status Informant HTN Resolved (hypertension)(Confi rmed) Neuropathy(Confirmed Resolved ) Thymus(Confirmed) Resolved Allergies, Adverse Reactions, Alerts Substance Reaction Severity Status NKDA Active Medications aspirin 324 mg, 4 tab, Route: PO, Drug form: CHEWTAB, ONCE, Dosing Weight 75, kg, Priori ty: STAT, Start date: 10/19/14 10:52:00, Stop date: 10/19/14 10:52:00 Notes: Take with food. Start Date: 10/19/14 Stop Date: 10/19/14 Status: Deleted Bystolic 10 mg oral tablet 10 mg=1 tab, PO, Daily, # 30 tab, 0 Refill(s) Start Date: 10/19/14 Status: Ordered gabapentin 100 mg oral capsule 100 mg=1 cap, PO, TID, 0 Refill(s) Start Date: 10/19/14 Status: Ordered Saline Flush 0.9% 10 mL, Route: IVP, Drug Form: INJ, Dosing Weight 75, kg, PRN, PRN Line Flush, St art date: 10/19/14 10:52:00, Duration: 30 day, Stop date: 11/18/14 10:51:00 Notes: (Same as: BD Posiflush) Start Date: 10/19/14 Stop Date: 10/19/14 Status: Discontinued Results ELECTROLYTES Most recent to 1 oldest [Reference Range]: Sodium Lvl [135-145 139 mEq/L mEq/L] (10/19/14 9:56 AM) Potassium Lvl 3.7 mEq/L [3.5-5.1 mEq/L] (10/19/14 9:56 AM) Chloride Lvl [95-109 106 mEq/L mEq/L] (10/19/14 9:56 AM) CO2 [24-32 mEq/L] 27 mEq/L (10/19/14 9:56 AM) AGAP [10.0-20.0 9.7 mEq/L mEq/L] *LOW* (10/19/14 9:56 AM) CHEM PANEL Most recent to 1 oldest [Reference Range]: Creatinine Lvl 0.8 mg/dL [0.5-1.4 mg/dL] (10/19/14 9:56 AM) eGFR 106 mL/min/1.73m2 1 *NA* (10/19/14 9:56 AM) BUN [7-22 mg/dL] 12 mg/dL (10/19/14 9:56 AM) B/C Ratio [6-25] 15 (10/19/14 9:56 AM) Glucose Lvl [70-99 101 mg/dL 2 mg/dL] *HI* (10/19/14 9:56 AM) Total Protein 7.3 g/dL [6.4-8.4 g/dL] (10/19/14 9:56 AM) Albumin Lvl [3.5-5.0 3.8 g/dL g/dL] (10/19/14 9:56 AM) Globulin [2.0-4.0 3.5 g/dL g/dL] (10/19/14 9:56 AM) A/G Ratio [0.7-1.6] 1.1 (10/19/14 9:56 AM) Calcium Lvl 8.4 mg/dL [8.5-10.5 mg/dL] *LOW* (10/19/14 9:56 AM) Phosphorus [2.5-4.5 2.3 mg/dL mg/dL] *LOW* (10/19/14 9:56 AM) Magnesium Lvl 2.0 mg/dL [1.8-2.4 mg/dL] (10/19/14 9:56 AM) ALT [0-65 unit/L] 17 unit/L (10/19/14 9:56 AM) AST [0-37 unit/L] 16 unit/L (10/19/14 9:56 AM) Alk Phos [39-136 51 unit/L unit/L] (10/19/14 9:56 AM) Bili Total [0.2-1.3 0.6 mg/dL mg/dL] (10/19/14 9:56 AM) Lipase Lvl [73-393 67 unit/L unit/L] *LOW* (10/19/14 9:56 AM) 1Result Comment: The eGFR is calculated using the [...] from the National Kidney Disease Education Program ( NKDEP) which additionally recommends that when the eGFR is used in patients with extremes of body mass index for purposes of drug dosing, the eGFR should be mul tiplied by the estimated BMI. 2Interpretive Data: Adult reference range values reflect the clinical guidelines of the [place] [employer]. CARDIAC ENZYMES Most recent to 1 oldest [Reference Range]: Total CK [12-191 103 unit/L unit/L] (10/19/14 9:56 AM) CK MB [0.5-3.6 <0.5 ng/mL ng/mL] (10/19/14 9:56 AM) CK MB Index <0.5 [0.0-2.5] (10/19/14 9:56 AM) Troponin-I <0.02 ng/mL [0.00-0.40 ng/mL] (10/19/14 9:56 AM) BNP [<=100 pg/mL] 15 pg/mL 3 (10/19/14 9:56 AM) 3Interpretive Data: Elevated results are in line with increasing severity of congestive heart failure. Minor elevations between 100 and 300 may be seen with Myocardial Ischemia, Sodium retaining drugs, and compensated/treated heart failure. URINE AND STOOL Most recent to 1 oldest [Reference Range]: UA Turbidity [Clear] Clear (10/19/14 11:03 AM) UA Color [Yellow] Yellow *NA* (10/19/14 11:03 AM) UA pH [5.0-8.0] 6.5 (10/19/14 11:03 AM) UA Spec Grav 1.011 [<=1.030] (10/19/14 11:03 AM) UA Glucose [Negative Negative mg/dL mg/dL] *NA* (10/19/14 11:03 AM) UA Blood [Negative] Trace *ABN* (10/19/14 11:03 AM) UA Ketones [Negative Negative mg/dL mg/dL] *NA* (10/19/14 11:03 AM) UA Protein [Negative Negative mg/dL mg/dL] (10/19/14 11:03 AM) UA Urobilinogen <=1.0 mg/dL [0.1-1.0 mg/dL] *NA* (10/19/14 11:03 AM) UA Bili [Negative] Negative *NA* (10/19/14 11:03 AM) UA Leuk Est Negative [Negative] (10/19/14 11:03 AM) UA Nitrite Negative [Negative] (10/19/14 11:03 AM) UA RBC [0-2 /HPF] 1 /HPF (10/19/14 11:03 AM) UA Sq Epi [Few /LPF] Few /LPF *NA* (10/19/14 11:03 AM) UA Mucus [None Seen Few /LPF /LPF] *NA* (10/19/14 11:03 AM) HEMATOLOGY Most recent to 1 oldest [Reference Range]: WBC [3.7-10.4 K/CMM] 3.3 K/CMM *LOW* (10/19/14 9:56 AM) RBC [4.20-5.40 4.18 M/CMM M/CMM] *LOW* (10/19/14 9:56 AM) Hgb [12.0-16.0 g/dL] 12.9 g/dL (10/19/14 9:56 AM) Hct [36.0-48.0 %] 39.0 % (10/19/14 9:56 AM) MCV [80.0-98.0 fL] 93.4 fL (10/19/14 9:56 AM) MCH [27.0-31.0 pg] 30.7 pg (10/19/14 9:56 AM) MCHC [32.0-36.0 32.9 g/dL g/dL] (10/19/14 9:56 AM) RDW [11.5-14.5 %] 13.8 % (10/19/14 9:56 AM) Platelet [133-450 303 K/CMM K/CMM] (10/19/14 9:56 AM) MPV [7.4-10.4 fL] 9.1 fL (10/19/14 9:56 AM) Segs [45.0-75.0 %] 39.6 % *LOW* (10/19/14 9:56 AM) Lymphocytes 48.1 % [20.0-40.0 %] *HI* (10/19/14 9:56 AM) Monocytes [2.0-12.0 8.8 % %] (10/19/14 9:56 AM) Eosinophils [0.0-4.0 1.9 % %] (10/19/14 9:56 AM) Basophils [0.0-1.0 1.6 % %] *HI* (10/19/14 9:56 AM) Segs-Bands # 1.3 K/CMM [1.5-8.1 K/CMM] *LOW* (10/19/14 9:56 AM) Lymphocytes # 1.6 K/CMM [1.0-5.5 K/CMM] (10/19/14 9:56 AM) Monocytes # [0.0-0.8 0.3 K/CMM K/CMM] (10/19/14 9:56 AM) Eosinophils # 0.1 K/CMM [0.0-0.5 K/CMM] (10/19/14 9:56 AM) Basophils # [0.0-0.2 0.1 K/CMM K/CMM] (10/19/14 9:56 AM) D-Dimer 0.58 ug/mL FEU 4 *NA* (10/19/14 9:56 AM) 4Interpretive Data: In DIC, quantitative D-Dimer is generally greater than 0.66 ug/mL FEU. Values of quantitative D-Dimer less than 0.40 ug/mL FEU have been reported to be associated with a low probability of deep vein thrombosis/pulmonary embolism. This test alone should not be used to rule out DVT/PE. Immunizations No data available for this section Procedures Procedure Date Related Diagnosis Body Site Appendectomy Thymectomy Tonsillectomy Tubal ligation Social History Social History Type Response Smoking Status Reg Smoking Cessation Counseling No; Never smoker; Exposure to Tobacco Smoke None; Cigarette Smoking Last 365 Days No Assessment and Plan No data available for this section
--- OUTSIDE RECORDS SUMMARY | 2019-02-26 11:19 | XMS REPORT | Summary of Care ---
Author Author [facility] Organization [facility] Address Unknown Phone Unavailable Encounter JU Sparrow(SHAYY) [id number] Date(s): 07/30/16 - 07/31/16 [facility] [address] provided by [employer] [facility] [place] [place] [address]- Discharge Disposition: Home or Self Care Attending Physician: Lobo Cleaning DO Admitting Physician: Lobo Cleaning DO Vital Signs 1 2 3 Most recent to oldest [Reference Range]: 157.48 cm (07/30/16 8:19 AM) 160.02 cm (07/30/16 1:57 AM) Height 97.7 DegF (07/31/16 7:10 AM) 97.6 DegF (07/31/16 3:16 AM) 97.6 DegF (07/30/16 11:51 PM) Temperature Oral [96.4-99.1 DegF] 142/80 mmHg *HI* (07/31/16 7:10 AM) 119/69 mmHg (07/31/16 3:16 AM) 114/68 mmHg (07/30/16 11:51 PM) Blood Pressure [90-140/60-90 mmHg] 18 BRMIN (07/31/16 7:10 AM) 18 BRMIN (07/31/16 3:16 AM) 18 BRMIN (07/30/16 11:51 PM) Respiratory Rate [14-20 BRMIN] 72 bpm (07/31/16 7:10 AM) 72 bpm (07/31/16 3:16 AM) 70 bpm (07/30/16 11:51 PM) Peripheral Pulse Rate [60-100 bpm] 78.182 kg (07/30/16 8:19 AM) 78.182 kg (07/30/16 1:57 AM) Weight 31.53 m2 (07/30/16 8:19 AM) 30.53 m2 (07/30/16 1:57 AM) Body Mass Index Problem List Condition Effective Dates Status Health Status Informant HTN Resolved (hypertension)(Confi rmed) Asthma in Resolved adult(Confirmed) Neuropathy(Confirmed Resolved ) Allergies, Adverse Reactions, Alerts Substance Reaction Severity Status NKDA Active Medications heparin 5,000 unit, 1 mL, Route: SUB-Q, Drug form: INJ, Q8H, Dosing Weight 78.182, kg, S tart date: 07/30/16 16:00:00 DIRECTOR APPAREL, Duration: 30 day, Stop date: 08/29/16 8:00:00 CDT Notes: porcine heparin Start Date: 07/30/16 Stop Date: 07/31/16 Status: Discontinued heparin 5000 units/mL injectable solution 5,000 unit, Route: SUB-Q, Drug form: INJ, Q8H, Dosing Weight 78.182, kg, Start d ate: 07/30/16 16:00:00 DIRECTOR APPAREL, Duration: 30 day, Stop date: 08/29/16 8:00:00 CDT Start Date: 07/30/16 Stop Date: 07/30/16 Status: Deleted Lactated Ringers 1,000 mL 1,000 mL, Rate: 75 ml/hr, Infuse over: 13.3 hr, Route: IV, Dosing Weight 78.182 kg, Total Volume: 1,000, Start date: 07/30/16 4:30:00 DIRECTOR APPAREL, Duration: 30 day, Sto p date: 08/29/16 4:29:00 CDT Start Date: 07/30/16 Stop Date: 07/31/16 Status: Discontinued morphine Sulfate 4 mg, Route: IVP, ONCE, Dosing Weight 78.182, kg, Priority: STAT, Start date: 4:30:00 DIRECTOR APPAREL, Stop date: 07/30/16 4:30:00 DIRECTOR APPAREL Start Date: 07/30/16 Stop Date: 07/30/16 Status: Completed morphine Sulfate 4 mg, 1 mL, Route: IVP, Drug form: INJ, ONCE, Dosing Weight 78.182, kg, Priority : STAT, Start date: 07/30/16 3:10:00 DIRECTOR APPAREL, Stop date: 07/30/16 3:10:00 DIRECTOR APPAREL Notes: (Same as:MORPhine Sulfate) Start Date: 07/30/16 Stop Date: 07/30/16 Status: Completed morphine Sulfate 2 mg, 1 mL, Route: IVP, Drug form: INJ, Q4H, Dosing Weight 78.182, kg, PRN Pain Score 7-10, Start date: 07/30/16 12:12:00 DIRECTOR APPAREL, Duration: 30 day, Stop date: 08/09 07/27 12:11:00 CDT Notes: (Same as:MORPhine Sulfate) Start Date: 07/30/16 Stop Date: 07/31/16 Status: Discontinued ondansetron 4 mg, Route: IVP, Drug form: INJ, ONCE, Dosing Weight 78.182, kg, Priority: STAT , Start date: 07/30/16 4:30:00 DIRECTOR APPAREL, Stop date: 07/30/16 4:30:00 DIRECTOR APPAREL Start Date: 07/30/16 Stop Date: 07/30/16 Status: Completed ondansetron 4 mg, 2 mL, Route: IVP, Drug form: INJ, ONCE, Dosing Weight 78.182, kg, Priority : STAT, Start date: 07/30/16 3:10:00 DIRECTOR APPAREL, Stop date: 07/30/16 3:10:00 DIRECTOR APPAREL Notes: (Same as: Nava) MEDICATION WASTE Product Size: 4 mgProduct Was bianca: ___ mg Start Date: 07/30/16 Stop Date: 07/30/16 Status: Completed Reglan 10 mg, Route: IVP, Drug form: INJ, ONCE, Dosing Weight 78.182, kg, Priority: STA T, Start date: 07/30/16 5:15:00 DIRECTOR APPAREL, Stop date: 07/30/16 5:15:00 DIRECTOR APPAREL Start Date: 07/30/16 Stop Date: 07/30/16 Status: Completed RhoGam (MAR Charting) 300 microgram, Route: IM, ONCE, Dosing Weight 78.182, kg, Start date: 07/30/16 2 :57:00 DIRECTOR APPAREL, Stop date: 07/30/16 2:57:00 DIRECTOR APPAREL Start Date: 07/30/16 Stop Date: 07/30/16 Status: Discontinued tramadol 50 mg, 1 tab, Route: PO, Drug form: TAB, Q6H, Dosing Weight 78.182, kg, PRN Pain Score 1-3, Start date: 07/30/16 12:11:00 DIRECTOR APPAREL, Duration: 30 day, Stop date: 08/09 07/27 12:10:00 CDT Notes: Not to exceed 400mg/day. (Same As: Ultram) Start Date: 07/30/16 Stop Date: 07/31/16 Status: Discontinued tramadol 50 mg oral tablet 50 mg=1 tab, PO, Q6H, PRN Pain Score 4-6, X 7 day, # 10 tab, 0 Refill(s) Start Date: 07/31/16 Stop Date: 08/07/16 Status: Ordered Tylenol 650 mg, 2 tab, Route: PO, Drug form: TAB, Q6H, Dosing Weight 78.182, kg, PRN [place] n Score 1-3, Start date: 07/30/16 12:10:00 DIRECTOR APPAREL, Duration: 30 day, Stop date: 12:09:00 CDT Notes: Do not exceed 4 gm/day. (Same as: Tylenol) Start Date: 07/30/16 Stop Date: 07/31/16 Status: Discontinued Zofran 4 mg oral tablet 4 mg=1 tab, PO, BID, X 5 day, # 10 tab, 0 Refill(s) Start Date: 07/31/16 Stop Date: 08/05/16 Status: Ordered Results ELECTROLYTES Most recent to 1 2 oldest [Reference Range]: Sodium Lvl [135-145 137 mEq/L 142 mEq/L mEq/L] (07/31/16 3:36 AM) (07/30/16 5:10 AM) Potassium Lvl 3.4 mEq/L 3.7 mEq/L [3.5-5.1 mEq/L] *LOW* (07/30/16 5:10 AM) (07/31/16 3:36 AM) Chloride Lvl [95-109 103 mEq/L 107 mEq/L mEq/L] (07/31/16 3:36 AM) (07/30/16 5:10 AM) CO2 [24-32 mEq/L] 26 mEq/L 27 mEq/L (07/31/16 3:36 AM) (07/30/16 5:10 AM) AGAP [10.0-20.0 11.4 mEq/L 11.7 mEq/L mEq/L] (07/31/16 3:36 AM) (07/30/16 5:10 AM) CHEM PANEL Most recent to 1 2 oldest [Reference Range]: Creatinine Lvl 0.94 mg/dL 0.88 mg/dL [0.50-1.40 mg/dL] (07/31/16 3:36 AM) (07/30/16 5:10 AM) eGFR 86 mL/min/1.73m2 1 93 mL/min/1.73m2 2 *NA* *NA* (07/31/16 3:36 AM) (07/30/16 5:10 AM) BUN [7-22 mg/dL] 13 mg/dL 9 mg/dL (07/31/16 3:36 AM) (07/30/16 5:10 AM) Glucose Lvl [70-99 134 mg/dL 163 mg/dL mg/dL] *HI* *HI* (07/31/16 3:36 AM) (07/30/16 5:10 AM) Calcium Lvl 8.4 mg/dL 8.5 mg/dL [8.5-10.5 mg/dL] *LOW* (07/30/16 5:10 AM) (07/31/16 3:36 AM) Phosphorus [2.5-4.5 4.0 mg/dL mg/dL] (07/31/16 3:36 AM) Magnesium Lvl 1.9 mg/dL [1.8-2.4 mg/dL] (07/31/16 3:36 AM) Lactic Acid Lvl 1.6 mMol/L [0.5-2.2 mMol/L] (07/30/16 5:10 AM) 1Result Comment: The eGFR is calculated [...] be mul tiplied by the estimated BMI. 2Result Comment: The eGFR is calculated using the [...] be mul tiplied by the estimated BMI. PARATHYROID PROFILE Most recent to 1 2 oldest [Reference Range]: Ca Ion WB [1.05-1.25 1.14 mMol/L mMol/L] (07/31/16 3:36 AM) Ca Norm WB 1.13 mMol/L [1.05-1.25 mMol/L] (07/31/16 3:36 AM) HEMATOLOGY Most recent to 1 2 oldest [Reference Range]: WBC [3.7-10.4 K/CMM] 7.8 K/CMM 10.5 K/CMM (07/31/16 3:36 AM) *HI* (07/30/16 5:10 AM) RBC [4.20-5.40 3.77 M/CMM 3.94 M/CMM M/CMM] *LOW* *LOW* (07/31/16 3:36 AM) (07/30/16 5:10 AM) Hgb [12.0-16.0 g/dL] 11.3 g/dL 12.1 g/dL *LOW* (07/30/16 5:10 AM) (07/31/16 3:36 AM) Hct [36.0-48.0 %] 33.9 % 35.3 % *LOW* *LOW* (07/31/16 3:36 AM) (07/30/16 5:10 AM) MCV [80.0-98.0 fL] 89.9 fL 89.5 fL (07/31/16 3:36 AM) (07/30/16 5:10 AM) MCH [27.0-31.0 pg] 29.9 pg 30.8 pg (07/31/16 3:36 AM) (07/30/16 5:10 AM) MCHC [32.0-36.0 33.3 g/dL 34.4 g/dL g/dL] (07/31/16 3:36 AM) (07/30/16 5:10 AM) RDW [11.5-14.5 %] 13.9 % 13.8 % (07/31/16 3:36 AM) (07/30/16 5:10 AM) Platelet [133-450 265 K/CMM 256 K/CMM K/CMM] (07/31/16 3:36 AM) (07/30/16 5:10 AM) MPV [7.4-10.4 fL] 8.2 fL 7.8 fL (07/31/16 3:36 AM) (07/30/16 5:10 AM) Segs [45.0-75.0 %] 58.8 % 73.6 % (07/31/16 3:36 AM) (07/30/16 5:10 AM) Lymphocytes 32.8 % 19.1 % [20.0-40.0 %] (07/31/16 3:36 AM) *LOW* (07/30/16 5:10 AM) Monocytes [2.0-12.0 5.7 % 6.1 % %] (07/31/16 3:36 AM) (07/30/16 5:10 AM) Eosinophils [0.0-4.0 2.1 % 0.7 % %] (07/31/16 3:36 AM) (07/30/16 5:10 AM) Basophils [0.0-1.0 0.6 % 0.5 % %] (07/31/16 3:36 AM) (07/30/16 5:10 AM) Segs-Bands # 4.6 K/CMM 7.7 K/CMM [1.5-8.1 K/CMM] (07/31/16 3:36 AM) (07/30/16 5:10 AM) Lymphocytes # 2.5 K/CMM 2.0 K/CMM [1.0-5.5 K/CMM] (07/31/16 3:36 AM) (07/30/16 5:10 AM) Monocytes # [0.0-0.8 0.4 K/CMM 0.6 K/CMM K/CMM] (07/31/16 3:36 AM) (07/30/16 5:10 AM) Eosinophils # 0.2 K/CMM 0.1 K/CMM [0.0-0.5 K/CMM] (07/31/16 3:36 AM) (07/30/16 5:10 AM) Basophils # [0.0-0.2 0.1 K/CMM K/CMM] (07/30/16 5:10 AM) PT [12.0-14.7 13.0 seconds seconds] (07/30/16 5:10 AM) INR [0.85-1.17] 0.96 (07/30/16 5:10 AM) PTT [22.9-35.8 26.4 seconds seconds] (07/30/16 5:10 AM) Immunizations No data available for this section Procedures Procedure Date Related Diagnosis Body Site Appendectomy Thymectomy Tonsillectomy Tubal ligation Social History Social History Type Response Substance Abuse Use: None. 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 Zosyn given in ED. Significant labs on arrival include no leukocytosis, normal lactic acid level, electrolytes within normal limits. Patient was admitted to [facility] for observation *24hrs. Nausea improved, there was [...]
--- OUTSIDE RECORDS SUMMARY | 2019-02-26 11:19 | XMS REPORT ---
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 Allergies, Adverse Reactions, Alerts This patient has no known allergies or adverse reactions. Medications This patient has no known medications. Results Test Description Test Time Test Comments Text Results Atomic Results Result Comments CHEST 2 VIEWS 2019-02-24 15:36:00 [place] [address] Patient Name: CHAS ROBERTSON MR #: [id number] : 1970 Age/Sex: 48/F Req #: [id number] [facility] Physician: Ordered by: CT MARCUS MD Report #: [id number] Location: [facility] Room/Bed: Procedure: [id number] DX/CHEST 2 VIEWS Exam Date: 02/24/19 Exam Time: 1410 REPORT STATUS: Signed Chest, 2 views, 02/24/2019. History: Shortness of breath and cough. Comparison: None available. Findings: The cardiomediastinal silhouette and pulmonary vasculature are within normal limits. The lungs are clear without evidence of consolidation or pleural effusion. Median sternotomy wires are present. There are no acute osseous or soft tissue abnormalities. Impression: No acute cardiopulmonary abnormality. Signed by: Cait Noel on 02/24/2019 3:37 PM Dictated By: CAIT NOEL MD 153 Transcribed By: BEBE on 02/24/191536 COPY TO: CT MARCUS MD
[2019-02-26] MEDS ORDERED: HYDROCODONE/CHLORPHENIRAMINE 5 ML LIQCR PO PRN (11:45)
[2019-02-26] MEDS ORDERED: DOXYCYCLINE 100MG/NS 100ML 100 ML IV SCH (12:30)
[2019-02-26 12:44] LABS: CLARITY,URINE CLEAR (CLEAR); COLOR,URINE YELLOW (YELLOW)
[2019-02-26 12:45] LABS: BILIRUBIN,URINE NEGATIVE (NEGATIVE); KETONES,URINE NEGATIVE (NEGATIVE); LEUKOCYTE ESTERASE ,URINE NEGATIVE (NEGATIVE); NITRITE,URINE NEGATIVE (NEGATIVE); PROTEIN,URINE DIPSTICK NEGATIVE (NEGATIVE); URINE UROBILINOGEN 0.2 mg/dL (0.2 - 1)
[2019-02-26] MEDS: IPRATROPIUM BROMIDE 0.02% 2.5 ML NEB NEB SCH (12:45)
[2019-02-26] MEDS: ALBUTEROL SULF 0.083% NEB SOLN 3 ML NEB NEB SCH (12:45)
[2019-02-26 12:46] LABS: BACTERIA,URINE RARE /HPF; EPITHELIAL CELLS,URINE FEW /LPF; RBC,URINE 0-5 /HPF (0-5); WBC,URINE (MAN) 0-5 /HPF (0-5)
--- OUTSIDE RECORDS SUMMARY | 2019-02-26 12:54 | XMS REPORT | Clinical Summary ---
Author Author Arango [employer] Organization [employer] Address Unknown Phone Unavailable Care Team Providers Care Patient Access Director Name Role Phone Sebastián Delvalle MD PCP [...] unspecified asthma severity, unspecified whether persistent 02/12/2019 [facility] General Internal Medicine - Encounter [...] Date Type Specialty Ranjith Jerry II, MD [address] [place] [address], [address] [place], [place] [address] 12/24/2019 Office Visit Obstetrics and Gynecology Health [...] MMODE SPECTRAL 4:06 PM CDT COLOR DOPPLER ([id number]) CT SOFT TISSUE NECK W STAT 02/13/2019 [...] CDT INTUBATION Routine 02/12/2019 7:03 AM CDT PA CRITICAL CARE, E/M Routine 02/12/2019 30-74 MINUTES [...] is included. Estimated GFR >=90 mL/min/1.73 m2 [place] Comment: [place] [facility] G1 >=90 Normal or high G2 60-89Mildly decreased A2y46-47 Mildly to moderately decreased H5d26-50 Moderately to severely decreased G4 15-29Severely decreased G5 <15Kidney failure The eGFR was calculated using the Chronic Kidney Disease Epidemiology Collaboration (CKD-EPI) equation. Interpretation is based on recommendations of the National Kidney Foundation-Kidney Disease Outcomes Quality Initiative (NKF-KDOQI) published in 2014. Specimen Plasma specimen Performing Organization Address City/State/Zipcode Phone Number [place] [address] [place] [address] PATHOLOGY AND GENOMIC MEDICINE [facility] [address] * CBC with platelet and differential (02/19/2019 7:14 AM CDT) Only the most recent of 9 results within the time period is included. WBC 9.5 4.2 - 11.0 k/uL [facility] RBC 3.61 (L) 4.04 - 5.86 m/uL [facility] HGB 10.8 (L) 11.5 - 15.3 g/dL [facility] HCT 33.5 (L) 34.0 - 45.0 % [facility] MCV 92.8 80.0 - 98.0 fL [facility] MCH 29.9 27.0 - 34.0 pg [facility] MCHC 32.2 31.5 - 36.5 g/dL [facility] RDW - SD 43.5 37.0 - 51.0 fL [facility] MPV 9.5 7.4 - 10.4 fL [facility] Platelet count 330 150 - 400 k/uL [facility] Nucleated RBC 0.00 /100 WBC [facility] Neutrophils 61.7 36.0 - 66.0 % [facility] Lymphocytes 26.0 24.0 - 44.0 % [facility] Monocytes 9.7 (H) 0.0 - 6.0 % [facility] Eosinophils 1.5 0.0 - 6.0 % [facility] Basophils 0.5 0.0 - 1.2 % [facility] Immature 0.6 0.0 - 1.0 % [place] granulocytes [facility] Specimen Blood Performing Organization Address City/State/Zipcode Phone Number [facility] [address] [place] [phone] PATHOLOGY AND GENOMIC MEDICINE [facility] [address] * Basic metabolic panel (02/19/2019 7:14 AM CDT) Only the most recent of 6 results within the time period is included. Sodium 136 135 - 150 mEq/L [facility] Potassium 3.9 3.5 - 5.0 mEq/L [facility] Chloride 100 98 - 112 mEq/L [facility] CO2 27 24 - 31 mmol/L [facility] Anion gap 9@ANIO 7 - 15 mEq/L [facility] BUN 18 7 - 18 mg/dL [facility] Creatinine 0.80 0.50 - 0.90 mg/dL [facility] Glucose 127 (H) 65 - 100 mg/dL [facility] Calcium 8.7 8.3 - 10.2 mg/dL [facility] Specimen Plasma specimen Performing Organization Address City/[facility] Phone Number [facility] DEPARTMENT [address] [place] [address] PATHOLOGY [place] [address] HOSPITAL * POC glucose (02/19/2019 6:37 AM CDT) Only the most recent of 30 results within the time period is included. [facility] POC glucose 118 (H) 65 - 100 mg/dL [place] Comment: [place] Meter ID: [id number] [place] Water Safety Instructor: [facility] Specimen Performing Organization Address City/[facility] Phone Number [facility] DEPARTMENT [address] [place] [address] PATHOLOGY [place] [address] HOSPITAL * Sputum culture (02/18/2019 10:20 AM CDT) [facility] Sputum culture Normal oral geo isolated. [place] isolate Comment: [place] Specimen Information HOSPITAL Specimen Source: Sputum Specimen Site: Expectorated Specimen Sputum - Expectorated Performing Organization Address City/State/Zipcode Phone Number [facility] DEPARTMENT OF [address] [place] [address] PATHOLOGY [place] [address] HOSPITAL * Gram stain (02/18/2019 10:20 AM CDT) Only the most recent of 3 results within the time period is included. Gram stain Few WBC's [place] isolate Few epithelial cells [place] Moderate Gram positive rods HOSPITAL Occasional Gram positive cocci in pairs Comment: Specimen Information Specimen Source: Sputum Specimen Site: Expectorated Specimen Sputum - Expectorated Performing Organization Address City/[facility] Phone Number [facility] DEPARTMENT [address] [place] [address] PATHOLOGY AND GENOMIC MED[place] [address] HOSPITAL * XR Chest 1 Vw Portable (02/18/2019 8:29 AM CDT) Only the most recent of 6 results within the time period is included. Specimen Narrative Performed At EXAMINATION:XR CHEST 1 VW PORTABLE [facility] CLINICAL HISTORY:shortness of breath COMPARISON:02/17/2019 IMPRESSION: 1.Mild atelectasis in the lung bases. 2.Stable cardiomediastinal silhouette. 3.Sternotomy wires are intact. [id number] Procedure Note Hm Interface, Radiology Results Incoming - 02/18/2019 8:35 AM CDT EXAMINATION: XR CHEST 1 VW PORTABLE CLINICAL HISTORY: shortness of breath COMPARISON: 02/17/2019 IMPRESSION: 1.Mild atelectasis in the lung bases. 2.Stable cardiomediastinal silhouette. 3.Sternotomy wires are intact. [id number] Performing Organization Address [facility] Cent[facility]otx Phone Number [facility] [address] [place] [address] * hCG qualitative, serum screen (02/17/2019 5:07 AM CDT) Only the most recent of 2 results within the time period is included. Pathologist [facility] hCG Negative [place] qualitative, Comment: [place] serum The manufacturers stated [place] sensitivity of HcG test for HOSPITAL serum is >/=10 mIU/ml and urine is >/=20mIU/ml. Specimen Blood Performing Organization Address City/[facility]/Zipcode Phone Number [facility] DEPARTMENT OF [address] [place] [address] PATHOLOGY AND GENOMIC MEDICINE [place] [address] [place] [address] HOSPITAL * XR Abdomen 1 Vw (02/16/2019 [...] The nasogastric tube extends into the stomach. [id number] Procedure Note Hm Interface, Radiology Results Incoming [...] The nasogastric tube extends into the stomach. [id number] Performing Organization Address City/State/Zipcode Phone Number [facility] [address] [place] [address] * Arterial blood gas (02/16/2019 3:32 AM CDT) Only the most recent of 6 results within the time period is included. pH, arterial 7.421 7.350 - 7.450 units [facility] pCO2, arterial 42.6 35.0 - 45.0 mmHg [facility] pO2, arterial 213.0 (H) 80.0 - 90.0 mmHg [facility] O2 saturation, 100.0 95.0 - 100.0 % [place] arterial [facility] Base excess, 3.2 mEq/L [place] arterial [facility] Bicarbonate 27.7 21.0 - 28.0 mEq/L [facility] O2 content 16.6 VOL% [facility] FiO2, inspired 25.0 % [place] O2% [facility] Carboxyhemoglob 0.3 0.0 - 1.4 % [place] in Comment: [place] Reference Ranges: [place] Carboxyhemoglobin [facility] Non smoker: 0.0 - 2.0% Smoker: 2.1 - 5.0% Heavy smoker: 5.1 - 9% Methemoglobin 0.7 0.0 - 1.0 % [facility] Hemoglobin, 11.6 (L) 12.0 - 16.0 g/dL [place] blood gas [facility] Specimen Blood Performing Organization Address City/[facility] Centercode Phone Number [facility] DEPARTMENT OF [address] [place] [address] PATHOLOGY AND GENOMIC MEDICINE [address] * Comprehensive metabolic panel (02/15/2019 9:11 AM CDT) Only the most recent of 4 results within the time period is included. Sodium 138 135 - 150 mEq/L [facility] Potassium 3.9 3.5 - 5.0 mEq/L [facility] Chloride 103 98 - 112 mEq/L [facility] CO2 24 24 - 31 mmol/L [facility] Anion gap 11@ANIO 7 - 15 mEq/L [facility] BUN 16 7 - 18 mg/dL [facility] Creatinine 0.80 0.50 - 0.90 mg/dL [facility] Glucose 171 (H) 65 - 100 mg/dL [facility] Calcium 9.4 8.3 - 10.2 mg/dL [facility] Protein 7.2 6.3 - 8.3 g/dL [facility] Albumin 3.4 (L) 3.5 - 5.0 g/dL [facility] A/G ratio 0.9 0.7 - 3.8 [facility] Alkaline 69 0 - 104 U/L [place] phosphatase [facility] AST 12 10 - 35 U/L [facility] ALT 11 5 - 50 U/L [facility] Total bilirubin <0.3 0.2 - 1.2 mg/dL [facility] Specimen Plasma specimen Performing Organization Address City/[facility] Centercode Phone Number [facility] DEPARTMENT [facility] [place] [address] PATHOLOGY AND GENOMIC MEDICINE [facility] [address] [place] [address] HOSPITAL * Smear review (02/14/2019 12:38 PM CDT) Platelet slide Raman adequate [place] review [facility] Specimen Performing Organization Address City/State/Zipcode Phone Number [facility] [address] [place] [address] PATHOLOGY AND GENOMIC MEDICINE [facility] [address] [place] [address] HOSPITAL * Echocardiogram complete w contrast and [...] i VTI 0.99 cm2/m2 HM [facility] BSA Early MR peak grad 5.44 mmHg HM [facility] [...] Address City/State/Zipcode Phone Number [place] [address] [place] [address] * CT Soft Tissue Neck W Contrast [...] by BRIAN Patel at 02/13/2019 3:37 PM. [id number] Procedure Note Interface, Radiology Results Incoming - [...] by BRIAN Patel at 02/13/2019 3:37 PM. [id number] Performing Organization Address City/State/Zipcode Phone Number [facility] [address] [place] [address] * Intubation (02/13/2019 11:04 AM CDT) Narrative Performed At Kip Spence MD 02/13/2019 11:07 AM Intubation Date/Time: 02/13/2019 11:06 AM Performed by: Kip Spence MD Authorized by: Kip Spence MD Consent: Consent obtained:Verbal and written Consent given by:Parent Risks discussed:Aspiration, bleeding, , brain injury, dental trauma, hypoxia, pneumothorax and laryngeal injury Alternatives discussed:No treatment, delayed treatment and alternative treatment [place] protocol: Procedure explained and questions answered to [...] MUSE rate Atrial rate 90 [facility] MUSE PA interval 168 [facility] QRSD interval 76 [facility] QT interval 368 [facility] QTC interval 450 [facility] P axis 1 47 [facility] M[facility] QRS axis 1 32 [facility] M[facility] T wave axis 43 [facility] EKG impression Normal sinus rhythm-Normal [facility] ECG-In automated comparison with ECG of 12-FEB-2019 09:52,-No significant change was found- Specimen Narrative Performed At Performing Organization Address City/[facility]ercode Phone Number [facility] [address] [place] [phone] * Phosphorus level (02/13/2019 4:37 AM CDT) Only the most recent of 2 results within the time period is included. [facility] Phosphorus 3.3 2.4 - 4.5 mg/dL [facility] Specimen Plasma specimen Performing Organization Address City/[facility] [place] [address] PATHOLOGY AND GENOMIC MEDICINE [address] * Magnesium level (02/13/2019 4:37 AM CDT) Only the most recent of 2 results within the time period is included. [facility] Magnesium 1.70 1.60 - 2.60 mg/dL [facility] Specimen Plasma specimen Performing Organization Address City/[facility]ercode Phone Number [facility] [place] [address] PATHOLOGY AND GENOMIC MEDICINE [address] * Blood culture, aerobic & anaerobic (02/12/2019 11:21 AM CDT) Only the most recent of 2 results within the time period is included. [facility] Blood culture No growth after 5 days of [place] isolate incubation. [place] Comment: HOSPITAL Specimen Information Specimen Source: Blood Specimen Site: Peripheral Hand Right Specimen Blood Performing Organization Address City/[facility]ercode Phone Number [facility] DEPARTMENT OF [address] AND [facility] [place] [address] [place] [address] HOSPITAL * Respiratory pathogen panel (02/12/2019 11:16 AM CDT) Only the most recent of 2 results within the time period is included. [facility] Respiratory Negative for all pathogens [place] pathogen panel tested: [place] Negative for Adenovirus [facility] Negative [...] Bronchial washing - Washing Performing Organization Address City/[facility]/Zipcode Phone Number [address] [place] [address] [place] [address] * Respiratory culture (02/12/2019 11:14 AM CDT) [facility] Respiratory Normal respiratory geo [place] culture isolate isolated. [place] Comment: HOSPITAL Specimen Information Specimen Source: Bronchial Washing Specimen Site: Right and Left Lobes Specimen Bronchial washing - Right and left lobes Performing Organization Address City/State/Zipcode Phone Number [facility] DEPARTMENT [address] [place] [address] * Hemoglobin A1c (02/12/2019 11:10 AM CDT) [facility] Hemoglobin A1C 5.6 4.0 - 5.6 % [place] Comment: [place] HbA1c cutoffs for diagnosing [place] diabetes: HOSPITAL 4.0% - 5.6%=normal 5.7% - 6.4%=increased risk for diabetes (prediabetes) >=6.5%=diabetes Goals for glycemic control (ADA 2016) < 7.0%Target for non adults with diabetes. More or less stringent targets may be appropriate for individual patients. <7.5% Target for Children and adolescents with type 1 diabetes. Specimen Blood Performing Organization Address City/[facility]/Zipcode Phone Number [facility] DEPARTMENT OF [address] [place] [address] PATHOLOGY AND GENOMIC MEDICINE [address] [place] [address] HOSPITAL * Lipid panel (02/12/2019 11:10 AM CDT) [facility] Signature Cholesterol 205 (H) 0 - 199 mg/dL [facility] Triglycerides 235 (H) 0 - 149 mg/dL [facility] HDL cholesterol 61 40 - 9,999 mg/dL [facility] LDL cholesterol 132 (H)Comment: Result 0 - 99 mg/dL [place] obtained by direct LDL [place] measurement [facility] Lipid panel See below [place] interpretation Comment: [place] Total Cholesterol [place] (mg/dL) [facility] LDL Cholesterol (mg/dL) <200 Desirable <100 Optimal 200-239Borderline -[id number] or above optimal >=240High 130-159Borderline- high [...] mg/dL) Specimen Plasma specimen Performing Organization Address City/[facility]/Zipcode Phone Number [facility] OF [address] [place] [address] PATHOLOGY AND GENOMIC MEDICINE [facility] [address] * XR Abdomen 1 Vw Portable [...] The nasogastric tube extends into the stomach. [id number] Procedure Note Interface, Radiology Results Incoming - [...] The nasogastric tube extends into the stomach. [id number] Performing Organization Address [facility] Centercode Phone Number [facility] [address] [place] [address] * XR Chest 1 Vw (02/12/2019 10:17 [...] normal limits.There is no significant skeletal finding. [id number] Procedure Note Interface, Radiology Results Incoming - [...] limits. There is no significant skeletal finding. [id number] Performing Organization Address City/[facility]/[place] [address] * Streptococcus pneumoniae urinary antigen (02/12/2019 10:04 AM CDT) Strep pneumo Negative for Streptococcus [place] urinary Ag pneumoniae antigen. [place] Comment: HOSPITAL Specimen Information Specimen Source: Urine Specimen Site: Catheterized Specimen Urine - Catheterized Performing Organization Address City/[facility] Centercode Phone Number [facility] [place] [address] PATHOLOGY AND GENOMIC MEDICINE [place] * Legionella urinary antigen (02/12/2019 10:04 AM CDT) Legionella Negative for Legionella [place] urinary antigen serogroup 1 antigen. [place] Comment: HOSPITAL Specimen Information Specimen Source: Urine Specimen Site: Catheterized Specimen Urine - Catheterized Performing Organization Address [facility] Phone Number [facility] [place] [address] PATHOLOGY AND GENOMIC MEDICINE [address] * Urine drugs of abuse screen (02/12/2019 10:04 AM CDT) Amphetamine Negative [place] screen, urine [place] [facility] Barbiturate Negative [place] screen, urine [place] [facility] Benzodiazepine Negative [place] screen, urine [facility] Cocaine screen, Negative [place] urine [place] [facility] Methadone Negative [place] metabolite [place] (EDDP), urine [facility] Opiates screen, Negative [place] urine [place] [facility] Oxycodone Negative [place] screen, urine [place] [facility] Phencyclidine Negative [place] screen, urine [facility] Cannabinoid Negative [place] screen, urine Comment: [place] Drug screen minimum [place] concentration of detectability HOSPITAL Amphetamines 1000 ng/mL [...] Urine Performing Organization Address City/State/Zipcode Phone Number [facility] DEPARTMENT OF [address] [facility] [place] [id number] PATHOLOGY AND GENOMIC MEDICINE [facility] [address] [facility] [address] * Influenza antigen test, reflex negative to RPP (02/12/2019 9:42 AM CDT) Influenza Negative for Influenza A/B [place] antigen antigen. [place] Comment: [place] Specimen Information HOSPITAL Specimen Source: Nares Specimen Site: Right Specimen Nares - Right Performing Organization Address City/State/Zipcode Phone Number [facility] DEPARTMENT OF [address] [facility] [place] [address] PATHOLOGY AND GENOMIC MEDICINE [facility] [address] * Urinalysis screen and microscopy, with reflex to culture (02/12/2019 9:41 AM CDT) Only the most recent of 2 results within the time period is included. Specimen site Catheterized [facility] Color, UA Straw [facility] Appearance, UA Clear [facility] Specific 1.003 1.001 - 1.035 [place] gravity, [facility] pH, UA 6.0 5.0 - 8.5 [facility] Protein, UA Negative Negative [facility] Glucose, UA 3+ (A) Negative [facility] Ketones, UA Negative Negative [facility] Bilirubin, UA Negative Negative [facility] Blood, UA Negative Negative [facility] Nitrite, UA Negative Negative [facility] Urobilinogen, Negative <2.0 [facility] Leukocyte Negative Negative [place] esterase, UA [facility] Epithelial Many /HPF [place] cells, UA [facility] WBC, UA 1 0 - 5 /HPF [facility] RBC, UA 1 0 - 5 /HPF [facility] Bacteria, UA Trace None seen [facility] Yeast, UA None seen [facility] Yeast with None seen [place] pseudohyphae, [place] UA [facility] Hyaline casts, 4 /LPF [facility] Specimen Urine Performing Organization Address City/State/Zipcode Phone Number [facility] DEPARTMENT OF [address] [place] [address] PATHOLOGY AND GENOMIC MEDICINE [facility] [address] [place] [address] HOSPITAL * hCG qualitative, urine screen (02/12/2019 9:41 AM CDT) hCG Negative Negative [place] qualitative, Comment: [place] urine The manufacturers stated [place] sensitivity of HcG test for HOSPITAL serum is >/=10 mIU/ml and urine is >/=20mIU/ml. Specimen Urine Performing Organization Address [facility] [facility] Centercode Phone Number [facility] [address] [place] [address] PATHOLOGY AND GENOMIC MEDICINE [address] * Venous blood gas (02/12/2019 7:34 AM CDT) Water Safety Instructor JDZD [facility] Collection site L HAND [facility] O2 therapy BIPAP [facility] Respiratory 16 bpm [place] rate [facility] pH, venous 7.275 (L) 7.320 - 7.420 units [facility] pCO2, venous 53.5 (H) 45.0 - 51.0 mmHg [facility] pO2, venous 34.6 25.0 - 40.0 mmHg [facility] O2 saturation, 57.8 40.0 - 70.0 % [place] venous [facility] Base excess, -1.9 -2.0 - 2.0 mEq/L [place] venous [facility] Bicarbonate 24.9 21.0 - 28.0 mEq/L [facility] O2 content 10.2 VOL% [facility] Carboxyhemoglob 0.7 0.0 - 1.4 % [place] in Comment: [place] Reference Ranges: [place] Carboxyhemoglobin [facility] Non smoker: 0.0 - 2.0% Smoker: 2.1 - 5.0% Heavy smoker: 5.1 - 9% Methemoglobin 0.9 0.0 - 1.0 % [facility] Hemoglobin, 12.8 12.0 - 16.0 g/dL [place] blood gas [facility] Specimen Blood Performing Organization Address City/State/Zipcode Phone Number [facility] DEPARTMENT OF [address] [place] [address] PATHOLOGY AND GENOMIC MEDICINE [facility] [address] * ECG ED Preliminary Interpretation - Not an Order (02/12/2019 7:03 AM CDT) Narrative Performed At Jj Robin Jr., MD 02/12/20192:02 PM ECG ED Preliminary Interpretation - Not an Order Performed by: Jj Robin Jr., MD Authorized by: Jj Robin Jr., MD ECG reviewed by ED Physician in the absence of a line builder: yes Interpretation: Interpretation: abnormal Rate: ECG rate:130 [...] laryngeal injury and pneumothorax Alternatives discussed:No treatment [place] protocol: Procedure explained and questions answered to [...] analytical performance characteristics have been determined by [facility]. It has not been cleared or approved by FDA. This assay has been validated pursuant to the CLIA regulations and is used for clinical purposes. Specimen Swab Resulting Agency Comment Performing Organization Information: Site ID: [id number] Name: [facility] Address: [address] [place] [address], [place] [address] Director: Betito Dhillon MD Performing Organization Address City/State/Zipcode Phone Number [facility] [address] [place], [place] [phone] * SURESWAB(R) BACTERIAL VAGINOSIS DNA, QN, [...] analytical performance characteristics have been determined by [facility]. It has not been cleared or approved by FDA. This assay has been validated pursuant to the CLIA regulations and is used for clinical purposes. Specimen Swab Resulting Agency Comment Performing Organization Information: Site ID: [id number] Name: [facility] Address: [address] [place] [id number] Director: Betito Dhillon MD Performing Organization Address City/State/Zipcode Phone Number [employer] [address] [place] [address] [phone] * THINPREP TIS PAP AND HPV mRNA E6/E7 REFLEX HPV 16,18/45 (12/22/2018 10:48 AM CDT) Clinical None given [employer] information [employer] [place] Date of last NONE GIVEN [employer] menstrual DIAGNOSTICS period [place] Prev. pap: NONE GIVEN [facility] [place] Prev. bx: NONE GIVEN [facility] [place] Source Vagina [facility] [place] Statement of Comment: [facility] adequacy Satisfactory for evaluation. DIAGNOSTICS Endocervical/transformation [place] zone component absent. Interpretation/ Comment: Negative for [facility] result: intraepithelial lesion or DIAGNOSTICS malignancy. [place] Infection Comment: [facility] Shift in vaginal geo DIAGNOSTICS suggestive of bacterial [place] vaginosis. Comment Comment: [facility] This Pap test has been DIAGNOSTICS evaluated with computer [employer] assisted technology. [employer] Comment: [facility] t J, CT(ASCP) DIAGNOSTICS CT screening location: [place] [address] [address], [facility] [address] Comment Comment: [facility] EXPLANATORY NOTE: DIAGNOSTICS The Pap is a screening test [place] for cervical cancer. It is not a [...] using ING II the APTIMA HPV Assay ([employer] This assay detects E6/E7 viral messenger RNA (mRNA) from 14 high-risk HPV types (16,18,31,33,35,39,45,51,52,56 ,58,59,66,68). The analytical performance characteristics of this assay have been determined by [employer] [facility]. The modifications have not been cleared or approved by the FDA. This assay has been validated pursuant to the CLIA regulations and is used for clinical purposes. Specimen Swab Resulting Agency Comment Performing Organization Information: Site ID: [id number] Name: [facility] Address: [address] [place] [id number] Director: Dr. Tyler Guan Site ID: [id number] Name: [facility] Address: [address] [place] [id number] Director: Ameena Green Performing Organization Address City/[facility] Centercotx Phone Number [address] [address] [place] [address] II * Mammo Breast Screen Tomosynthesis Bilateral (12/22/2018 10:23 AM CDT) Specimen Narrative Performed At PROCEDURE: MAMMO BREAST SCREEN TOMOSYNTHESIS BILATERAL [employer] Computer aided detection was utilized for the [...] 1:NEGATIVE This facility is accredited by the [employer] for Mammography. A negative x-ray report should not delay biopsy if a dominant or clinically suspicious mass is present.Not all cancers are identified by x-ray. [id number] Performing Organization Address City/State/Zipcode Phone Number [facility] [address] [place] [address] * US Pelvic Transabdominal (03/26/2018 12:28 PM CDT) Specimen Narrative Performed At EXAMINATION: [employer] US PELVIC TRANSABDOMINAL CLINICAL HISTORY: AUBcramping COMPARISON: [...] most likely fibroids. Free fluid, probably physiological. [id number] Procedure Note Hm Interface, Radiology Results Incoming [...] most likely fibroids. Free fluid, probably physiological. [id number] Performing Organization Address City/State/Zipcode Phone Number [facility] [address] [place] [address] * US Pelvic Transvaginal (03/26/2018 12:28 PM CDT) Specimen Narrative Performed At EXAMINATION:US PELVIC TRANSVAGINAL [facility] CLINICAL HISTORY:aubcramping COMPARISON:None. TECHNIQUE:Transabdominal and endovaginal sonographic [...] cyst most likely representing a hemorrhagic cyst. [id number] Procedure Note Interface, Radiology Results Incoming - [...] cyst most likely representing a hemorrhagic cyst. [id number] Performing Organization Address City/[facility]/Zipcode Phone Number [facility] [address] [place] [address] * Urine culture (03/26/2018 10:58 AM CDT) Urine culture Mixed Gram positive geo [facility] DEPARTMENT isolate 10-5 cfu/ml OF PATHOLOGY (A) AND GENOMIC Comment: MEDICINE Specimen Information Specimen Source: Urine Specimen Site: Clean catch Specimen Urine Performing Organization Address City/State/Zipcode Phone Number [facility] DEPARTMENT OF [address] [place] [address] PATHOLOGY AND GENOMIC MEDICINE after 02/25/2018 Insurance Type Payer Benefit Subscriber ID Effective Phone Address Plan / Dates Group PPO BCBS BCBS OUT xxxxxxxxxxxxxx 2019-P OF STATE resent Advance Directives For more information, please contact: [phone] Patient Human Resources Hr Generalist Explanation Type Date Recorded Advance Directives, Living Will and Medical Power of Pharmaceutical Botanist Advance Directives, 03/26/2018 12:27 PM Living Will and Medical Power of Pharmaceutical Botanist
--- OUTSIDE RECORDS SUMMARY | 2019-02-26 12:55 | XMS REPORT | Continuity of Care Document ---
Author Author [employer] Organization [employer] Address Unknown Phone Unavailable Care Team Providers Care Mixing Operator Name Role Phone [facility] Room 77 Information In[employer] Unavailable Unavailable Problems Problem Status Onset Date Classification Date Reported Comments Source OMENTUM INFARCT Active 07/30/2016 [facility] OMENTAL INFARCTION Active 07/30/2016 [facility] Discharge Diagnosis: Chest pain 10/19/2014 10/22/2014 [facility] CHEST PAIN Active 10/19/2014 [facility] Thymus Resolved Problem 10/22/2014 [facility] HTN (Confirmed) Resolved Problem 08/03/2016 [facility] Asthma in adult Resolved Problem 08/03/2016 [facility] Neuropathy Resolved Problem 08/03/2016 [facility] ACUTE INFARCTION OF INTESTINE, PART AND Active [facility] Medications Medication Details Route Status Patient Instructions Ordering Provider Order Date Source Ondansetron 4 MG Oral Tablet [Zofran] 4 mg=1 tab, PO, BID, X 5 day, # 10 tab, 0 Refill(s) Active 07/31/2016 [facility] tramadol hydrochloride 50 MG Oral Tablet 50 mg=1 tab, PO, Q6H, PRN Pain Score 4-6, X 7 day, # 10 tab, 0 Refill(s) Active 07/31/2016 [facility] heparin 5,000 unit, 1 mL, Route: SUB-Q, Drug form: INJ, Q8H, Dosing Weight 78.182, kg, Start date: 07/30/16 16:00:00 MANAGER MEETING, Duration: 30 day, Stop date: 08/29/16 8:00:00 CDTNotes: porcine heparin No Longer Active 07/30/2016 [facility] heparin sodium, porcine 2500 UNT/ML Injectable Solution 5,000 unit, Route: SUB-Q, Drug form: INJ, Q8H, Dosing Weight 78.182, kg, Start date: 07/30/16 16:00:00 MANAGER MEETING, Duration: 30 day, Stop date: 08/29/16 8:00:00 CDT Inactive 07/30/2016 [facility] Morphine 2 mg, 1 mL, Route: IVP, Drug form: INJ, Q4H, Dosing Weight 78.182, kg, PRN Pain Score 7-10, Start date: 07/30/16 12:12:00 MANAGER MEETING, Duration: 30 day, Stop date: 08/29/16 12:11:00 CDTNotes: (Same as:MORPhine Sulfate) No Longer Active 07/30/2016 [facility] Tramadol 50 mg, 1 tab, Route: PO, Drug form: TAB, Q6H, Dosing Weight 78.182, kg, PRN Pain Score 1-3, Start date: 07/30/16 12:11:00 MANAGER MEETING, Duration: 30 day, Stop date: 08/29/16 12:10:00 CDTNotes: Not to exceed 4 00mg/day. (Same As: Ultram) No Longer Active 07/30/2016 [facility] Tylenol 650 mg, 2 tab, Route: PO, Drug form: TAB, Q6H, Dosing Weight 78.182, kg, PRN Pain Score 1-3, Start date: 07/30/16 12:10:00 MANAGER MEETING, Duration: 30 day, Stop date: 08/29/16 12:09:00 CDTNotes: Do not exceed 4 gm/day. (Same as: Tylenol) No Longer Active 07/30/2016 [facility] Reglan 10 mg, Route: IVP, Drug form: INJ, ONCE, Dosing Weight 78.182, kg, Priority: STAT, Start date: 07/30/16 5:15:00 MANAGER MEETING, Stop date: 07/30/16 5:15:00 MANAGER MEETING Inactive 07/30/2016 [facility] Ondansetron 4 mg, Route: IVP, Drug form: INJ, ONCE, Dosing Weight 78.182, kg, Priority: STAT, Start date: 07/30/16 4:30:00 MANAGER MEETING, Stop date: 07/30/16 4:30:00 MANAGER MEETING Inactive 07/30/2016 [facility] Morphine 4 mg, Route: IVP, ONCE, Dosing Weight 78.182, kg, Priority: STAT, Start date: 07/30/16 4:30:00 MANAGER MEETING, Stop date: 07/30/16 4:30:00 MANAGER MEETING Inactive 07/30/2016 [facility] Lactated Ringers 1,000 mL 1,000 mL, Rate: 75 ml/hr, Infuse over: 13.3 hr, Route: IV, Dosing Weight 78.182 kg, Total Volume: 1,000, Start date: 07/30/16 4:30:00 MANAGER MEETING, Duration: 30 day, Stop date: 08/29/16 4:29:00 CDT No Longer Active 07/30/2016 [facility] Ondansetron 4 mg, 2 mL, Route: IVP, Drug form: INJ, ONCE, Dosing Weight 78.182, kg, Priority: STAT, Start date: 07/30/16 3:10:00 MANAGER MEETING, Stop date: 07/30/16 3:10:00 CSTNotes: (Same as: Zofran) MEDICATION WASTE * Product Size: 4 mg Product Wasted: ___ mg Inactive 07/30/2016 [facility] Morphine 4 mg, 1 mL, Route: IVP, Drug form: INJ, ONCE, Dosing Weight 78.182, kg, Priority: STAT, Start date: 07/30/16 3:10:00 MANAGER MEETING, Stop date: 07/30/16 3:10:00 CSTNotes: (Same as:MORPhine Sulfate) Inactive 07/30/2016 [facility] RhoGam (MAR Charting) 300 microgram, Route: IM, ONCE, Dosing Weight 78.182, kg, Start date: 07/30/16 2:57:00 MANAGER MEETING, Stop date: 07/30/16 2:57:00 MANAGER MEETING Inactive 07/30/2016 [facility] Aspirin 324 mg, 4 tab, Route: PO, Drug form: CHEWTAB, ONCE, Dosing Weight 75, kg, Priority: STAT, Start date: 10/19/14 10:52:00, Stop date: 10/19/14 10:52:00Notes: Take with food. Inactive 10/19/2014 [facility] Saline Flush 0.9% 10 mL, Route: IVP, Drug Form: INJ, Dosing Weight 75, kg, PRN, PRN Line Flush, Start date: 10/19/14 10:52:00, Duration: 30 day, Stop date: 06/11/15 10:51:00Notes: (Same as: BD Posiflush) Inactive 10/19/2014 [facility] gabapentin 100 MG Oral Capsule 100 mg=1 cap, PO, TID, 0 Refill(s) Active 10/19/2014 [facility] nebivolol 10 MG Oral Tablet [Bystolic] 10 mg=1 tab, PO, Daily, # 30 tab, 0 Refill(s) Active 10/19/2014 [facility] Allergies, Adverse Reactions, Alerts No Known Medication Allergies Immunizations No Data Provided for This Section Results Order Name Results Value Reference Range Date Interpretation Comments Source CHEM PANEL Phosphorus 4.0 2.5 - 4.5 07/31/2016 [facility] CHEM PANEL Magnesium Lvl 1.9 1.8 - 2.4 07/31/2016 [facility] CHEM PANEL eGFR 86 07/31/2016 Result Comment: [...] should be multiplied by the estimated BMI. [facility] CHEM PANEL CO2 26 24 - 32 07/31/2016 [facility] CHEM PANEL Chloride Lvl 103 95 - 109 07/31/2016 [facility] CHEM PANEL Sodium Lvl 137 135 - 145 07/31/2016 [facility] CHEM PANEL Creatinine Lvl 0.94 0.50 - 1.40 07/31/2016 [facility] CHEM PANEL BUN 13 7 - 22 07/31/2016 [facility] CHEM PANEL Potassium Lvl 3.4 3.5 - 5.1 07/31/2016 [facility] CHEM PANEL Calcium Lvl 8.4 8.5 - 10.5 07/31/2016 [facility] CHEM PANEL Glucose Lvl 134 70 - 99 07/31/2016 [facility] CHEM PANEL AGAP 11.4 10.0 - 20.0 07/31/2016 [facility] HEMATOLOGY Segs 58.8 45.0 - 75.0 07/31/2016 [facility] HEMATOLOGY Lymphocytes 32.8 20.0 - 40.0 07/31/2016 [facility] HEMATOLOGY Eosinophils 2.1 0.0 - 4.0 07/31/2016 [facility] HEMATOLOGY Monocytes 5.7 2.0 - 12.0 07/31/2016 [facility] HEMATOLOGY Basophils 0.6 0.0 - 1.0 07/31/2016 [facility] HEMATOLOGY Segs-Bands # 4.6 1.5 - 8.1 07/31/2016 [facility] HEMATOLOGY Monocytes # 0.4 0.0 - 0.8 07/31/2016 [facility] HEMATOLOGY Lymphocytes # 2.5 1.0 - 5.5 07/31/2016 [facility] HEMATOLOGY Eosinophils # 0.2 0.0 - 0.5 07/31/2016 [facility] HEMATOLOGY Hct 33.9 36.0 - 48.0 07/31/2016 [facility] HEMATOLOGY Hgb 11.3 12.0 - 16.0 07/31/2016 [facility] HEMATOLOGY MCV 89.9 80.0 - 98.0 07/31/2016 [facility] HEMATOLOGY MCHC 33.3 32.0 - 36.0 07/31/2016 [facility] HEMATOLOGY MCH 29.9 27.0 - 31.0 07/31/2016 [facility] HEMATOLOGY Platelet 265 133 - 450 07/31/2016 [facility] HEMATOLOGY RDW 13.9 11.5 - 14.5 07/31/2016 [facility] HEMATOLOGY MPV 8.2 7.4 - 10.4 07/31/2016 [facility] HEMATOLOGY WBC 7.8 3.7 - 10.4 07/31/2016 [facility] HEMATOLOGY RBC 3.77 4.20 - 5.40 07/31/2016 [facility] PARATHYROID PROFILE Ca Ion WB 1.14 1.05 - 1.25 07/31/2016 [facility] PARATHYROID PROFILE Ca Norm WB 1.13 1.05 - 1.25 07/31/2016 [facility] CHEM PANEL Lactic Acid Lvl 1.6 0.5 - 2.2 07/30/2016 [facility] ELECTROLYTES AGAP 11.7 10.0 - 20.0 07/30/2016 [facility] ELECTROLYTES Creatinine Lvl 0.88 0.50 - 1.40 07/30/2016 [facility] ELECTROLYTES Sodium Lvl 142 135 - 145 07/30/2016 [facility] ELECTROLYTES eGFR 93 07/30/2016 Result Comment: The [...] should be multiplied by the estimated BMI. [facility] ELECTROLYTES Glucose Lvl 163 70 - 99 07/30/2016 [facility] ELECTROLYTES BUN 9 7 - 22 07/30/2016 [facility] ELECTROLYTES Potassium Lvl 3.7 3.5 - 5.1 07/30/2016 [facility] ELECTROLYTES Chloride Lvl 107 95 - 109 07/30/2016 [facility] ELECTROLYTES CO2 27 24 - 32 07/30/2016 [facility] ELECTROLYTES Calcium Lvl 8.5 8.5 - 10.5 07/30/2016 [facility] HEMATOLOGY INR 0.96 0.85 - 1.17 07/30/2016 [facility] HEMATOLOGY PT 13.0 12.0 - 14.7 07/30/2016 [facility] HEMATOLOGY PTT 26.4 22.9 - 35.8 07/30/2016 [facility] HEMATOLOGY MCHC 34.4 32.0 - 36.0 07/30/2016 [facility] HEMATOLOGY RDW 13.8 11.5 - 14.5 07/30/2016 [facility] HEMATOLOGY Platelet 256 133 - 450 07/30/2016 [facility] HEMATOLOGY MPV 7.8 7.4 - 10.4 07/30/2016 [facility] HEMATOLOGY MCV 89.5 80.0 - 98.0 07/30/2016 [facility] HEMATOLOGY MCH 30.8 27.0 - 31.0 07/30/2016 [facility] HEMATOLOGY Hct 35.3 36.0 - 48.0 07/30/2016 [facility] HEMATOLOGY Hgb 12.1 12.0 - 16.0 07/30/2016 [facility] HEMATOLOGY RBC 3.94 4.20 - 5.40 07/30/2016 [facility] HEMATOLOGY WBC 10.5 3.7 - 10.4 07/30/2016 [facility] HEMATOLOGY Lymphocytes 19.1 20.0 - 40.0 07/30/2016 [facility] HEMATOLOGY Segs 73.6 45.0 - 75.0 07/30/2016 [facility] HEMATOLOGY Eosinophils # 0.1 0.0 - 0.5 07/30/2016 [facility] HEMATOLOGY Basophils # 0.1 0.0 - 0.2 07/30/2016 [facility] HEMATOLOGY Monocytes # 0.6 0.0 - 0.8 07/30/2016 [facility] HEMATOLOGY Segs-Bands # 7.7 1.5 - 8.1 07/30/2016 [facility] HEMATOLOGY Lymphocytes # 2.0 1.0 - 5.5 07/30/2016 [facility] HEMATOLOGY Basophils 0.5 0.0 - 1.0 07/30/2016 [facility] HEMATOLOGY Eosinophils 0.7 0.0 - 4.0 07/30/2016 [facility] HEMATOLOGY Monocytes 6.1 2.0 - 12.0 07/30/2016 [facility] URINE AND STOOL UA Urobilinogen <=1.0 mg/dL 0.1 - 1.0 10/19/2014 [facility] URINE AND STOOL UA Mucus Few /LPF None Seen /LPF 10/19/2014 [facility] URINE AND STOOL UA RBC 1 0 - 2 10/19/2014 [facility] URINE AND STOOL UA Sq Epi Few /LPF Few /LPF 10/19/2014 [facility] URINE AND STOOL UA Leuk Est Negative (10/19/14 11:03 AM) Negative 10/19/2014 [facility] URINE AND STOOL UA Nitrite Negative (10/19/14 11:03 AM) Negative 10/19/2014 [facility] URINE AND STOOL UA Glucose Negative mg/dL Negative mg/dL 10/19/2014 [facility] URINE AND STOOL UA Ketones Negative mg/dL Negative mg/dL 10/19/2014 [facility] URINE AND STOOL UA Protein Negative mg/dL Negative mg/dL 10/19/2014 [facility] URINE AND STOOL UA Blood Trace *ABN* (10/19/14 11:03 AM) Negative 10/19/2014 [facility] URINE AND STOOL UA Bili Negative *NA* (10/19/14 11:03 AM) Negative 10/19/2014 [facility] URINE AND STOOL UA Spec Grav 1.011 <=1.030 10/19/2014 [facility] URINE AND STOOL UA Turbidity Clear (10/19/14 11:03 AM) Clear 10/19/2014 [facility] URINE AND STOOL UA Color Yellow *NA* (10/19/14 11:03 AM) Yellow 10/19/2014 [facility] URINE AND STOOL UA pH 6.5 5.0 - 8.0 10/19/2014 [facility] CARDIAC ENZYMES Total CK 103 12 - 191 10/19/2014 [facility] CARDIAC ENZYMES CK MB <0.5 0.5 - 3.6 10/19/2014 [facility] CARDIAC ENZYMES BNP 15 <=100 pg/mL 10/19/2014 <sup>3</sup>Interpretive Data: Elevated results are in line with increasing severity of
congestive heart failure. Minor elevations between 100 and 300
may be seen with Myocardial Ischemia, Sodium retaining drugs,
and compensated/treated heart failure. [facility] CARDIAC ENZYMES Troponin-I <0.02 0.00 - 0.40 10/19/2014 [facility] CARDIAC ENZYMES CK MB Index <0.5 0.0 - 2.5 10/19/2014 [facility] CHEM PANEL Magnesium Lvl 2.0 1.8 - 2.4 10/19/2014 [facility] CHEM PANEL Phosphorus 2.3 2.5 - 4.5 10/19/2014 [facility] CHEM PANEL eGFR 106 10/19/2014 <sup>1</sup>Result [...] should be multiplied by the estimated BMI. [facility] [employer] CHEM PANEL A/G Ratio 1.1 0.7 - 1.6 10/19/[address] [facility] [employer] CHEM PANEL Globulin 3.5 2.0 - 4.0 10/19/[address] [facility] [employer] CHEM PANEL B/C Ratio 15 6 - 25 10/19/[address] [facility] [employer] CHEM PANEL AGAP 9.7 10.0 - 20.0 10/19/2014 [facility] CHEM PANEL Alk Phos 51 39 - 136 10/19/[address] [facility] [employer] CHEM PANEL Bili Total 0.6 0.2 - 1.3 10/19/2014 [facility] CHEM PANEL AST 16 0 - 37 10/19/[address] [facility] [employer] CHEM PANEL Chloride Lvl 106 95 - 109 10/19/2014 [facility] CHEM PANEL Creatinine Lvl 0.8 0.5 - 1.4 10/19/[address] [facility] [employer] CHEM PANEL Potassium Lvl 3.7 3.5 - 5.1 10/19/[address] [facility] [employer] CHEM PANEL Sodium Lvl 139 135 - 145 10/19/[address] [facility] [employer] CHEM PANEL ALT 17 0 - 65 10/19/[address] [facility] [employer] CHEM PANEL Total Protein 7.3 6.4 - 8.4 10/19/[address] [facility] [employer] CHEM PANEL Albumin Lvl 3.8 3.5 - 5.0 10/19/[address] [facility] [employer] CHEM PANEL Calcium Lvl 8.4 8.5 - 10.5 10/19/[address] [facility] [employer] CHEM PANEL Glucose Lvl 101 70 - 99 10/19/2014 <sup>2</sup>Interpretive Data: Adult reference range values reflect the clinical guidelines
of the [place] [employer]. [facility] CHEM PANEL BUN 12 7 - 22 10/19/2014 [facility] CHEM PANEL CO2 27 24 - 32 10/19/2014 [facility] CHEM PANEL Lipase Lvl 67 73 - 393 10/19/2014 [facility] HEMATOLOGY MPV 9.1 7.4 - 10.4 10/19/2014 [facility] HEMATOLOGY RDW 13.8 11.5 - 14.5 10/19/2014 [facility] MCHC 32.9 32.0 - 36.0 10/19/2014 [facility] HEMATOLOGY Platelet 303 133 - 450 10/19/2014 [facility] MCV 93.4 80.0 - 98.0 10/19/2014 [facility] MCH 30.7 27.0 - 31.0 10/19/2014 [facility] Hgb 12.9 12.0 - 16.0 10/19/2014 [facility] Hct 39.0 36.0 - 48.0 10/19/2014 [facility] RBC 4.18 4.20 - 5.40 10/19/2014 [facility] WBC 3.3 3.7 - 10.4 10/19/2014 [facility] D-Dimer 0.58 10/19/2014 <sup>4</sup>Interpretive Data: In DIC, quantitative D-Dimer is generally greater than
0.66 ug/mL FEU. Values of quantitative D-Dimer less than
0.40 ug/mL FEU have been reported to be associated with a low
probability of deep vein thrombosis/pulmonary embolism.
This test alone should not be used to rule out DVT/PE. [facility] HEMATOLOGY Monocytes # 0.3 0.0 - 0.8 10/19/2014 [facility] HEMATOLOGY Eosinophils # 0.1 0.0 - 0.5 10/19/2014 [facility] HEMATOLOGY Basophils # 0.1 0.0 - 0.2 10/19/2014 [facility] Monocytes 8.8 2.0 - 12.0 10/19/2014 [facility] Segs 39.6 45.0 - 75.0 10/19/2014 [facility] Lymphocytes 48.1 20.0 - 40.0 10/19/2014 [facility] HEMATOLOGY Lymphocytes # 1.6 1.0 - 5.5 10/19/2014 [facility] HEMATOLOGY Eosinophils 1.9 0.0 - 4.0 10/19/2014 [facility] HEMATOLOGY Basophils 1.6 0.0 - 1.0 10/19/2014 [facility] HEMATOLOGY Segs-Bands # 1.3 1.5 - 8.1 10/19/2014 [facility] Pathology Reports No Data Provided for This Section Diagnostic Reports No Data Provided for This Section Consultation Notes No Data Provided for This Section Discharge Summaries No Data Provided for This Section History and Physicals No Data Provided for This Section Vital Signs Vital Sign Value Date Comments Source Respitory Rate 18 07/31/2016 [facility] Systolic (mm Hg) 142 07/31/2016 [facility] Diastolic (mm Hg) 80 07/31/2016 [facility] Heart Rate 72 07/31/2016 [facility] Temperature Oral (F) 97.7 F 07/31/2016 [facility] Systolic (mm Hg) 119 07/31/2016 [facility] Diastolic (mm Hg) 69 07/31/2016 [facility] Heart Rate 72 07/31/2016 [facility] Respitory Rate 18 07/31/2016 [facility] Temperature Oral (F) 97.6 F 07/31/2016 [facility] Heart Rate 70 07/31/2016 [facility] Respitory Rate 18 07/31/2016 [facility] Systolic (mm Hg) 114 07/31/2016 [facility] Diastolic (mm Hg) 68 07/31/2016 [facility] Temperature Oral (F) 97.6 F 07/31/2016 [facility] Height 157.48 cm 07/30/2016 [facility] BMI Calculated 31.53 07/30/2016 [facility] Weight 78.182 07/30/2016 [facility] Height 160.02 cm 07/30/2016 [facility] BMI Calculated 30.53 07/30/2016 [facility] Weight 78.182 07/30/2016 [facility] Temperature Oral (F) 98.1 F 10/19/2014 [facility] Systolic (mm Hg) 144 10/19/2014 [facility] Diastolic (mm Hg) 89 10/19/2014 [facility] Respitory Rate 14 10/19/2014 [facility] Systolic (mm Hg) 133 10/19/2014 [facility] Diastolic (mm Hg) 89 10/19/2014 [facility] Respitory Rate 15 10/19/2014 [facility] Systolic (mm Hg) 141 10/19/2014 [facility] Diastolic (mm Hg) 93 10/19/2014 [facility] Respitory Rate 11 10/19/2014 [facility] Heart Rate 78 10/19/2014 [facility] Temperature Oral (F) 98.2 F 10/19/2014 [facility] Heart Rate 76 10/19/2014 [facility] Weight 75 10/19/2014 [facility] BMI Calculated 28.38 10/19/2014 [facility] Height 162.56 cm 10/19/2014 [facility] Encounters Location Location Details Encounter Type Encounter Number Reason For Visit Attending Provider ADM Date DC Date Status Source [facility] [id number] Mook Jensen 10/19/2014 10/19/2014 [facility] [id number] [employer] Cleaning 07/30/2016 07/31/2016 [facility] Procedures Procedure Code Date Perfomer Comments Source Appendectomy [id number] [facility] Thymectomy [id number] [facility] Tonsillectomy [id number] [facility] Tubal ligation [id number] [facility] Assessment and Plan Assessment and Plan Date Source Extracted from:Title: EGS Discharge Summary Author: Juan Carlos Beyer MD Date: 07/31/16 Discharge Information Admission Diagnosis: omental infarct Discharge Diagnosis: omental infarct Hospital course: The patient is a 45F with PMHx of HTN, neuropathic pain, asthma, bronchitis who presents as a transfer from [facility] with 2 day history of nausea/vomitting and RLQ abdominal pain and CT suggesting omental infarct. Zosyn given in ED. Significant labs on arrival include no leukocytosis, normal lactic acid level, electrolytes within normal limits. Patient was admitted to [facility] for observation *24hrs. Nausea improved, there [...] Improving. Education and Follow-up Counseled: family. 07/31/2016 [facility] Plan of Care No Data Provided for This Section Social History Social History Date Source Social History TypeResponse Substance Abuse Use: None. Alcohol Never Smoking Status Never smoker; Exposure to Tobacco Smoke None; Cigarette Smoking Last 365 Days No; Reg Smoking Cessation Counseling No 07/30/2016 [facility] Social History TypeResponse Smoking Status Reg Smoking Cessation Counseling No; Never smoker; Exposure to Tobacco Smoke None; Cigarette Smoking Last 365 Days No 10/19/2014 [facility] Family History No Data Provided for This Section Advance Directives No Data Provided for This Section Functional Status No Data Provided for This Section
[2019-02-26 13:00] LABS: BASOPHILS % 0.1 % (0.0-1.0); HEMATOCRIT 32.8 % (34.2-44.1); HEMOGLOBIN 10.9 g/dL (12.0-16.0); LYMPHOCYTES # (AUTO) 2.6 (1.0-3.2); MEAN CORPUSCULAR HEMOGLOBIN 30.9 pg (28-32); MEAN CORPUSCULAR HGB CONC 33.2 g/dL (31-35); MEAN CORPUSCULAR VOLUME 92.9 fL (81-99); MONOCYTES # (AUTO) 1.3 (0.2-0.8); NEUTROPHILS # (AUTO) 17.3 (2.1-6.9); NEUTROPHILS % 81.2 % (38.7-80.0); PLATELET COUNT 467 x10e3/uL (140-360); RED BLOOD COUNT 3.53 x10e6/uL (3.6-5.1); RED CELL DISTRIBUTION WIDTH 13.6 % (11.7-14.4)
[2019-02-26 13:13] LABS: INR 0.82; PROTHROMBIN TIME 11.8 seconds (11.9-14.5)
[2019-02-26 13:14] LABS: PARTIAL THROMBOPLASTIN TIME 28.2 seconds (23.8-35.5)
--- NOTE | 2019-02-26 13:15 | NUR ---
Pt sitting up on stretcher. RR even and unlabored. Pt on NIBP, pulse ox, and cardiac monitoring. Bed locked in lowest position. Call light in reach. Family at bedside. Will continue to monitor.
[2019-02-26 13:22] LABS: ALANINE AMINOTRANSFERASE 19 IU/L (0-55); ALBUMIN 3.5 g/dL (3.5-5.0); ALKALINE PHOSPHATASE 82 IU/L (40-150); ANION GAP 10.7 mmol/L (8-16); BLOOD UREA NITROGEN 12 mg/dL (7-26); BUN/CREATININE RATIO 13 (6-25); CALCIUM 8.7 mg/dL (8.4-10.2); CARBON DIOXIDE 26 mmol/L (22-29); CHLORIDE 105 mmol/L (98-107); CREATINE KINASE 55 IU/L (29-168); CREATININE, SERUM 0.89 mg/dL (0.57-1.11); EST GLOMERULAR FILTRATION RATE > 60 ML/MIN (60-); GLUCOSE 97 mg/dL (74-118); POTASSIUM 3.7 mmol/L (3.5-5.1); SODIUM 138 mmol/L (136-145)
[2019-02-26] MEDS: METHYLPREDNISOLONE SOD SUCC 125 MG/2ML VIAL IV SCH ×2 (14:29→22:15)
[2019-02-26] MEDS ORDERED: ALBUTEROL SULFATE HFA 8GM INHALATION AEROSOL INH PRN (14:30)
[2019-02-26] MEDS: SODIUM CHLORIDE 0.9% 1000ML 1,000 ML IV SCH ×2 (14:32→19:35)
--- NOTE | 2019-02-26 14:57 | NUR ---
H&P cc: cough/sob HPI: 48yoF, my clinic pt, developed cough/sob. Pt was hospitalized at [facility] on 02/13, eventually intubated. Difficulty extubating. Finally made it home. Continued to have respiratory issues; Went to [facility] 2 days ago, CT showed PNA. Now upon seeing in clinic, aske d to go to ED. PMH: asthma, mood d/o, neuropathy, HTN Psx; unknown allergies; see emr Fh/SH; no cigs meds; see MAR ROS: no f/c/s/N/V/D/H[place]/vision changes/cp/back pain/skin rash V/S: revd PE anicteric ns1s2 reduced BS; right lung with less aeration soft nt nd no e/t skin dry n. affect labs/meds revd A/P: 48yoF Acute asthma exa Obesity BMI 32.6 Mood d/o Neuropathy HTN PLAN IV sterioids/antitussives/antihistaine hab1c/lipids continue home meds scd Sebasitán Delvalle MD, PhD.
[2019-02-26] MEDS: GABAPENTIN 100 MG CAP PO SCH ×2 (15:00→17:22)
[2019-02-26] MEDS: PIPER-TAZ 3.375 GM 50 ML IV SCH ×2 (15:11→22:15)
[2019-02-26 15:54] VITALS: BP 149/82
--- NOTE | 2019-02-26 16:00 | NUR ---
Pt resting comfortably. RR even and unlabored. NAD noted. Will continue to monitor.
--- NOTE | 2019-02-26 16:36 | Diagnostic Imaging Report ---
Chest, 2 views, 02/26/2019. History: Shortness of breath. Comparison: 02/24/2019. Findings: The cardiomediastinal silhouette and pulmonary vasculature are within normal limits. The lungs are clear without evidence of consolidation or pleural effusion. Median sternotomy wires and CABG clips are present. There are no acute osseous or soft tissue abnormalities. Impression: No acute cardiopulmonary abnormality. Signed by: Melecio Noel on 02/26/2019 4:32 PM
[2019-02-26] MEDS: BENZONATATE 100 MG CAP PO SCH ×2 (17:22→22:15)
[2019-02-26] MEDS: AZITHROMYCIN 500MG/NS 250 ML 250 ML IV SCH (17:22)
[2019-02-26 17:24] VITALS: BP 149/82
--- NOTE | 2019-02-26 17:42 | NUR ---
Patient admitted to unit from ER. Patient arrived via stretcher. patient is AAOx3. lung carbajal auscultated and noted to be crackling and wheezing. Some shortness of breath at rest and exertion. Moist cough noted. Bowel sounds present x4. 1+ non pitting edema to BLE. IV fluids infusing. No s/s of distress noted
[2019-02-26] MEDS ORDERED: LEVOCETIRIZINE D5 MG PO (17:58)
[2019-02-26] MEDS ORDERED: ZOLPIDEM TARTRA10 MG PO (17:58)
[2019-02-26] MEDS ORDERED: NIFEDIPINE ER90 M1 PO (17:58)
[2019-02-26] MEDS ORDERED: ALBUTEROL2.5 MG/3 M INH (17:58)
[2019-02-26] MEDS ORDERED: AMITRIPTYLINE H50 MG PO (17:58)
[2019-02-26] MEDS ORDERED: GABAPENTIN800 MG PO (17:58)
[2019-02-26] MEDS ORDERED: CYMBALTA30 MG PO (17:58)
[2019-02-26] MEDS ORDERED: CYCLOBENZAPRINE5 MG PO (17:58)
[2019-02-26] MEDS ORDERED: METHYLPREDNISOLO4 M1 PO (17:58)
[2019-02-26] MEDS ORDERED: BREO INH (17:58)
[2019-02-26] MEDS ORDERED: MONTELUKAST SOD10 MG PO (17:58)
[2019-02-26 18:28] VITALS: BP 149/82
--- NOTE | 2019-02-26 19:20 | NUR ---
received report, patient aaox3. family at bedside. no needs voiced. bed locked and in lowest position, call light within easy reach.
[2019-02-26 20:00] VITALS: BP 139/78
[2019-02-26] MEDS ORDERED: ZOLPIDEM TARTRATE 10 MG TAB PO PRN (21:00)
[2019-02-26] MEDS ORDERED: GABAPENTIN 100 MG CAP PO SCH (21:00)
[2019-02-26 21:26] LABS: CREATINE KINASE 51 IU/L (29-168)
[2019-02-26 21:30] VITALS: BP 139/78
[2019-02-26] MEDS: GABAPENTIN 400 MG CAP PO SCH (22:15)
[2019-02-27] VITALS (7 sets, daily range): BP systolic 158–195; BP diastolic 86–108
[2019-02-27] MEDS: ONDANSETRON HCL INJ 2MG/ML 2ML 2 MG/ML VIAL IV PRN (00:50)
--- NOTE | 2019-02-27 01:30 | NUR ---
patient c/o nausea unrelieved with zofran. spoke with dr. dubose, received verbal orders and faxed to pharmacy. paper order in patients chart.
[2019-02-27] MEDS ORDERED: PROMETHAZINE HCL 25 MG TAB PO PRN (02:00)
[2019-02-27] MEDS ORDERED: PROMETHAZINE 12.5MG/ NACL 0.9% 50 ML IV PRN (02:45)
[2019-02-27] MEDS: PROMETHAZINE 12.5MG/ NACL 0.9% 50 ML IV PRN ×3 (03:00→20:00)
[2019-02-27] MEDS: PIPER-TAZ 3.375 GM 50 ML IV SCH ×3 (05:26→23:06)
[2019-02-27] MEDS: SODIUM CHLORIDE 0.9% 1000ML 1,000 ML IV SCH ×3 (05:26→19:35)
[2019-02-27 05:57] LABS: BASOPHILS % 0.1 % (0.0-1.0); HEMATOCRIT 32.7 % (34.2-44.1); HEMOGLOBIN 10.5 g/dL (12.0-16.0); LYMPHOCYTES # (AUTO) 1.2 (1.0-3.2); LYMPHOCYTES % 7.2 % (18.0-39.1); MEAN CORPUSCULAR HEMOGLOBIN 29.9 pg (28-32); MEAN CORPUSCULAR HGB CONC 32.1 g/dL (31-35); MEAN CORPUSCULAR VOLUME 93.2 fL (81-99); MONOCYTES # (AUTO) 0.2 (0.2-0.8); MONOCYTES % 1.3 % (4.4-11.3); NEUTROPHILS # (AUTO) 15.4 (2.1-6.9); NEUTROPHILS % 89.9 % (38.7-80.0); PLATELET COUNT 435 x10e3/uL (140-360); RED BLOOD COUNT 3.51 x10e6/uL (3.6-5.1); RED CELL DISTRIBUTION WIDTH 13.5 % (11.7-14.4)
--- NOTE | 2019-02-27 06:10 | NUR ---
IM- progress note O/N no events ROS: no f/c/s/N/V/D/HILLIARD/vision changes/cp/back pain/skin rash V/S: revd PE anicteric ns1s2 reduced BS; right lung with less aeration soft nt nd no e/t skin dry n. affect labs/meds revd A/P: 48yoF Acute asthma exa Obesity BMI 32.6 Mood d/o Neuropathy HTN PLAN IV sterioids/antitussives/antihistaine hab1c/lipids continue home meds scd 9-20 cont care. Sebastián Delvalle MD, PhD.
[2019-02-27 06:17] LABS: CREATINE KINASE MB 0.8 ng/mL (0-5.0)
[2019-02-27 06:34] LABS: ALANINE AMINOTRANSFERASE 20 IU/L (0-55); ALBUMIN 3.3 g/dL (3.5-5.0); ALBUMIN/GLOBULIN RATIO 0.9 (0.8-2.0); ALKALINE PHOSPHATASE 69 IU/L (40-150); ANION GAP 11.3 mmol/L (8-16); BLOOD UREA NITROGEN 12 mg/dL (7-26); BUN/CREATININE RATIO 15 (6-25); CALCIUM 8.7 mg/dL (8.4-10.2); CARBON DIOXIDE 26 mmol/L (22-29); CHLORIDE 105 mmol/L (98-107); CREATININE, SERUM 0.78 mg/dL (0.57-1.11); EST GLOMERULAR FILTRATION RATE > 60 ML/MIN (60-); GLUCOSE 140 mg/dL (74-118); POTASSIUM 4.3 mmol/L (3.5-5.1); SODIUM 138 mmol/L (136-145)
--- NOTE | 2019-02-27 07:00 | NUR ---
BEDSIDE SHIFT REPORT RECEIVED FROM NIGHT RN. PT DENIES NEEDS AT THIS TIME.
[2019-02-27] MEDS: IPRATROPIUM BROMIDE 0.02% 2.5 ML NEB NEB SCH ×3 (07:15→19:30)
[2019-02-27] MEDS: ALBUTEROL SULF 0.083% NEB SOLN 3 ML NEB NEB SCH ×4 (07:15→19:30)
[2019-02-27] MEDS ORDERED: NON-FORMULARY MEDICATION (Gabapentin 800 MG) PO SCH (09:00)
[2019-02-27] MEDS: NIFEDIPINE CR 30 MG TAB PO SCH (09:35)
[2019-02-27] MEDS: BREO INH SCH (09:35)
[2019-02-27] MEDS: GABAPENTIN 400 MG CAP PO SCH ×3 (09:35→23:40)
[2019-02-27] MEDS: METHYLPREDNISOLONE SOD SUCC 125 MG/2ML VIAL IV SCH (09:35)
[2019-02-27] MEDS: LORATADINE 10 MG TAB PO SCH (09:35)
[2019-02-27] MEDS: BENZONATATE 100 MG CAP PO SCH ×3 (09:36→23:07)
[2019-02-27] MEDS: MONTELUKAST SODIUM 10 MG TAB PO SCH (09:36)
[2019-02-27] MEDS: TRAMADOL HCL 50 MG TAB PO PRN (09:56)
--- NOTE | 2019-02-27 11:32 | NUR ---
ST NOTE: Awaiting MBS order, re-requested order with BRIAN Suarez.
[2019-02-27] MEDS ORDERED: ALBUTEROL SULF 0.083% NEB SOLN 3 ML NEB INH PRN (13:15)
[2019-02-27] MEDS ORDERED: MAGNESIUM HYDROXIDE 30 ML UDC PO ONE (13:30)
[2019-02-27] MEDS ORDERED: CLONIDINE HCL 0.2 MG TAB PO PRN (13:30)
[2019-02-27 14:27] LABS: CREATINE KINASE MB 0.8 ng/mL (0-5.0)
[2019-02-27] MEDS: AZITHROMYCIN 500MG/NS 250 ML 250 ML IV SCH (15:13)
--- NOTE | 2019-02-27 15:58 | Diagnostic Imaging Report ---
Modified barium swallow exam with speech pathology service, 02/27/2019 CLINICAL HISTORY: Aspiration pneumonia Fluoro Time: 0.9 min. Estimated dose 4.98 mGy reference Kerma, IMPRESSION: Barium contrast of multiple consistencies is given to the patient to swallow. Fluoroscopic observation is performed during swallowing. Please see the speech pathology service report for details. Signed by: Juan Carlos Pack MD on 02/27/2019 3:54 PM
--- NOTE | 2019-02-27 20:00 | NUR ---
ROUNDS DONE, PATIENT RESTING IN BED, NO DISTRESS NOTED AT THIS TIME. IV INFUSING, REMAIN ON CONTINOUS PULSE OX, CALL LIGHT IN REACH. WILL CONTINUE TO MONITOR.
[2019-02-27] MEDS ORDERED: METHYLPREDNISOLONE SOD SUCC 125 MG/2ML VIAL IV SCH (21:00)
[2019-02-27] MEDS ORDERED: NON-FORMULARY MEDICATION (Zolpidem Tartrate 10 MG) PO SCH (21:00)
[2019-02-27] MEDS: LISINOPRIL 20 MG TAB PO SCH (23:41)
[2019-02-27] MEDS: HYDROCODONE/CHLORPHENIRAMINE 5 ML LIQCR PO PRN (23:52)
[2019-02-28] VITALS (10 sets, daily range): BP systolic 128–159; BP diastolic 83–93
--- NOTE | 2019-02-28 | NUR ---
CONTINUE RESTING, NO DISTRESS NOTED. CALL LIGHT IN REACH.
[2019-02-28] MEDS: ALBUTEROL SULF 0.083% NEB SOLN 3 ML NEB NEB SCH ×6 (03:30→19:30)
[2019-02-28] MEDS: SODIUM CHLORIDE 0.9% 1000ML 1,000 ML IV SCH (03:35)
[2019-02-28] MEDS: PROMETHAZINE 12.5MG/ NACL 0.9% 50 ML IV PRN ×3 (04:55→19:38)
--- NOTE | 2019-02-28 05:04 | NUR ---
MEDICATED FOR NAUSEA, IV CONTINUE INFUSING, CALL LIGHT IN REACH.
[2019-02-28 05:40] LABS: BASOPHILS % 0.1 % (0.0-1.0); HEMATOCRIT 31.3 % (34.2-44.1); HEMOGLOBIN 10.2 g/dL (12.0-16.0); LYMPHOCYTES % 5.5 % (18.0-39.1); MEAN CORPUSCULAR HEMOGLOBIN 30.4 pg (28-32); MEAN CORPUSCULAR HGB CONC 32.6 g/dL (31-35); MEAN CORPUSCULAR VOLUME 93.2 fL (81-99); MONOCYTES # (AUTO) 0.8 (0.2-0.8); MONOCYTES % 4.1 % (4.4-11.3); NEUTROPHILS % 89.2 % (38.7-80.0); PLATELET COUNT 440 x10e3/uL (140-360); RED BLOOD COUNT 3.36 x10e6/uL (3.6-5.1); RED CELL DISTRIBUTION WIDTH 13.7 % (11.7-14.4)
[2019-02-28] MEDS: BREO INH SCH (06:00)
[2019-02-28 06:11] LABS: ALANINE AMINOTRANSFERASE 19 IU/L (0-55); ALBUMIN 3.2 g/dL (3.5-5.0); ALKALINE PHOSPHATASE 87 IU/L (40-150); ANION GAP 12.9 mmol/L (8-16); BLOOD UREA NITROGEN 12 mg/dL (7-26); BUN/CREATININE RATIO 12 (6-25); CALCIUM 8.7 mg/dL (8.4-10.2); CARBON DIOXIDE 25 mmol/L (22-29); CHLORIDE 104 mmol/L (98-107); CREATININE, SERUM 0.97 mg/dL (0.57-1.11); EST GLOMERULAR FILTRATION RATE > 60 ML/MIN (60-); GLUCOSE 278 mg/dL (74-118); POTASSIUM 3.9 mmol/L (3.5-5.1); SODIUM 138 mmol/L (136-145)
[2019-02-28] MEDS: PIPER-TAZ 3.375 GM 50 ML IV SCH ×3 (06:11→20:49)
[2019-02-28 06:49] LABS: CREATINE KINASE 25 IU/L (29-168)
--- NOTE | 2019-02-28 06:55 | NUR ---
PATIENT REQUESTED FOR MEDICATION FOR PAIN, WENT BACK INTO HER ROOM AND PATIENT IS SLEEPING. REPORT GIVEN TO AM NURSE.
[2019-02-28] MEDS: IPRATROPIUM BROMIDE 0.02% 2.5 ML NEB NEB SCH ×4 (07:00→19:30)
--- NOTE | 2019-02-28 07:41 | NUR ---
IM- progress note O/N no events ROS: no f/c/s/N/V/D/HILLIARD/vision changes/cp/back pain/skin rash V/S: revd PE anicteric ns1s2 reduced BS; right lung with less aeration soft nt nd no e/t skin dry n. affect labs/meds revd A/P: 48yoF PNA/HAP Acute asthma exa Obesity BMI 32.6 Mood d/o Neuropathy HTN PLAN IV sterioids/antitussives/antihistaine hab1c/lipids continue home meds scd 9- cont care. - cont supportive care for PNA. CT imaging at outside facility did demonstrate PNA. cont care. PNA was POA. Sebastián Delvalle MD, PhD.
[2019-02-28] MEDS: BENZONATATE 100 MG CAP PO SCH ×3 (08:47→20:49)
[2019-02-28] MEDS: DULOXETINE HCL 30 MG DELAYED RELEASE PO SCH (08:47)
[2019-02-28] MEDS: LORATADINE 10 MG TAB PO SCH (08:47)
[2019-02-28] MEDS: GABAPENTIN 400 MG CAP PO SCH ×3 (08:47→20:48)
[2019-02-28] MEDS: MONTELUKAST SODIUM 10 MG TAB PO SCH (08:47)
[2019-02-28] MEDS: NIFEDIPINE CR 30 MG TAB PO SCH (08:48)
[2019-02-28] MEDS: TRAMADOL HCL 50 MG TAB PO PRN ×2 (08:48→15:16)
[2019-02-28] MEDS: HYDROCODONE/CHLORPHENIRAMINE 5 ML LIQCR PO PRN ×3 (08:48→20:49)
--- NOTE | 2019-02-28 11:37 | Progress Note ---
DATE: SUBJECTIVE: The patient feels better. She has less wheezing and less cough. She still had some vomiting yesterday. PHYSICAL EXAMINATION: VITAL SIGNS: The patient is afebrile. The vital signs are stable. HEENT: Shows no facial swelling or erythema. CARDIAC: Reveals a regular rate and rhythm with normal S1, S2. LUNGS: Auscultation of lungs is normal. ABDOMEN: Soft, nontender. There is no leg edema or calf tenderness. IMPRESSION: 1. Right-sided pneumonia with sepsis, present on admission. 2. Asthma with acute exacerbation. 3. Gastroesophageal reflux. 4. Nausea and vomiting. 5. Dehydration. PLAN: 1. Continue antibiotics. 2. Taper corticosteroids. 3. Continue bronchodilators. 4. Antiemetics. 5. Potential discharge tomorrow. Isma Landry MD [facility]NANL /[id number]
[2019-02-28] MEDS: AZITHROMYCIN 500MG/NS 250 ML 250 ML IV SCH (14:51)
--- NOTE | 2019-02-28 15:29 | NUR ---
Nutrition Screen Note RD Recommendation for Physician: 1.Continue with current diet as ordered Plan of Care: RD following, monitoring for tolerance and adequacy Nutrition reason for involvement: Nutrition Risk Trigger Primary Diagnose(s): Asthma exacerbation, pneumonia PMH: Asthma, mood disorder. Neuropathy, HTN Ht: 64in Wt: 189lbs BMI: 32.43kg/m2 IBW: 120lbs +/- 10% RD Assessment: (02/28) Chart reviewed. Labs and meds reviewed. 48 y/o F who was admitted for SOB and ongoing coughing. Patient reported feeling better, noted ongoing nausea and vomiting x2 weeks prior to admission, with last episode of vomiting this morning. Per patient, appetite and intake have significantly improved but still remain suboptimal. Reports phlegm cough and nausea have been affecting her appetite and intake. PTC showed patient consumption of ~25-75% of meals during admission. Pt denied D/C or any difficulties with chewing/swallowing, however, pending speech evaluation. Reported UBW of 185lbs and denied any significant recent weight changes. Menu options were discussed with patient and family. Pt denied any ONS at this time, will continue to monitor and follow. Current Diet: Regular Diet Malnutrition Evaluation (02/28) The patient does not meet criteria for a specified degree of malnutrition at this time. Will re-evaluate at follow-up as appropriate. Diet Education Needs Assessment: Diet education not indicated. Nutrition Care Level: LOW Signed: Екатерина Charles, MS, RDN, LD
[2019-02-28] MEDS: PANTOPRAZOLE 40 MG 10ML VIAL IV SCH (17:31)
[2019-02-28] MEDS ORDERED: HYDROCODONE/CHLORPHENIRAMINE 5 ML LIQCR PO PRN ×2 (19:30→20:00)
[2019-02-28] MEDS: ACETAMINOPHEN/CODEINE 300MG - 30MG TAB PO PRN (19:38)
[2019-02-28] MEDS: LISINOPRIL 20 MG TAB PO SCH (20:49)
[2019-03-01] VITALS (10 sets, daily range): BP systolic 94–133; BP diastolic 52–86
[2019-03-01] MEDS: ALBUTEROL SULF 0.083% NEB SOLN 3 ML NEB NEB SCH ×6 (04:00→20:15)
[2019-03-01] MEDS: PIPER-TAZ 3.375 GM 50 ML IV SCH ×3 (05:54→21:26)
[2019-03-01] MEDS: BREO INH SCH (06:00)
--- NOTE | 2019-03-01 07:15 | NUR ---
received am report from nurse and morning rounds done. pt is alert sitting up in bed, no s/s of distress. respiratory is at the bedside starting breathing treatments. call light within reach and instructed pt to call nurse for help
[2019-03-01] MEDS: IPRATROPIUM BROMIDE 0.02% 2.5 ML NEB NEB SCH ×4 (07:20→20:15)
[2019-03-01] MEDS ORDERED: ZITHROMAX500 MG PO (08:25)
[2019-03-01] MEDS ORDERED: Hydrocodone/Chlorpheniramine PO (08:25)
[2019-03-01] MEDS: PROMETHAZINE 12.5MG/ NACL 0.9% 50 ML IV PRN ×2 (08:25→14:43)
[2019-03-01] MEDS ORDERED: TYLENOL # 31 EA PO (08:25)
[2019-03-01] MEDS ORDERED: TESSALON PERLE100 MG PO (08:25)
[2019-03-01] MEDS ORDERED: LORATADINE10 MG PO (08:25)
[2019-03-01] MEDS ORDERED: PREDNISONE20 MG PO (08:25)
[2019-03-01] MEDS: GABAPENTIN 400 MG CAP PO SCH ×3 (08:27→21:00)
[2019-03-01] MEDS: LORATADINE 10 MG TAB PO SCH (08:27)
[2019-03-01] MEDS: MONTELUKAST SODIUM 10 MG TAB PO SCH (08:27)
[2019-03-01] MEDS: DULOXETINE HCL 30 MG DELAYED RELEASE PO SCH (08:27)
--- NOTE | 2019-03-01 08:27 | NUR ---
D/C summary Principal Dx: PNA/HAP Acute asthma exa Secondary Dx: Obesity BMI 32.6 Mood d/o Neuropathy HTN PLAN IV sterioids/antitussives/antihistaine hab1c/lipids continue home meds scd - cont care. - cont supportive care for PNA. CT imaging at outside facility did demonstrate PNA. cont care. PNA was POA. d/c home f/u pcp 2-4 days; 1 week stable d/c>35mins Sebastián Delvalle MD, PhD.
[2019-03-01] MEDS: NIFEDIPINE CR 30 MG TAB PO SCH (08:28)
[2019-03-01] MEDS: BENZONATATE 100 MG CAP PO SCH ×3 (08:28→21:00)
[2019-03-01] MEDS: PANTOPRAZOLE 40 MG 10ML VIAL IV SCH (08:31)
[2019-03-01] MEDS: ACETAMINOPHEN/CODEINE 300MG - 30MG TAB PO PRN ×2 (08:40→16:00)
[2019-03-01 09:19] LABS: BASOPHILS % 0.2 % (0.0-1.0); EOSINOPHILS # (AUTO) 0.1 (0.0-0.4); EOSINOPHILS % 0.8 % (0.0-6.0); HEMATOCRIT 33.4 % (34.2-44.1); HEMOGLOBIN 10.7 g/dL (12.0-16.0); LYMPHOCYTES # (AUTO) 3.8 (1.0-3.2); MEAN CORPUSCULAR HEMOGLOBIN 30.4 pg (28-32); MEAN CORPUSCULAR VOLUME 94.9 fL (81-99); MONOCYTES # (AUTO) 0.6 (0.2-0.8); MONOCYTES % 4.6 % (4.4-11.3); NEUTROPHILS # (AUTO) 8.1 (2.1-6.9); PLATELET COUNT 317 x10e3/uL (140-360); RED BLOOD COUNT 3.52 x10e6/uL (3.6-5.1); RED CELL DISTRIBUTION WIDTH 13.9 % (11.7-14.4)
[2019-03-01] MEDS: HYDROCODONE/CHLORPHENIRAMINE 5 ML LIQCR PO PRN (10:48)
[2019-03-01] MEDS: ONDANSETRON HCL INJ 2MG/ML 2ML 2 MG/ML VIAL IV PRN (10:48)
[2019-03-01] MEDS: TRAMADOL HCL 50 MG TAB PO PRN (11:50)
--- NOTE | 2019-03-01 12:54 | Consultation ---
DATE OF CONSULTATION: CHIEF COMPLAINT: Wheezing, dyspnea and right-sided infiltrates. HISTORY OF PRESENT ILLNESS: The patient is a 48-year-old woman. 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 She also has a history of asthma. She was hospitalized last month at [facility] for asthma and wheezing. She required intubation. She was subsequently sent home, but continued to have more problems. She was further evaluated in an outside emergency department. She had a CT scan of the chest that showed infiltrates in the right lung. She notes continue coughing and phlegm production. She notes some fevers at home and some wheezing. PAST SURGICAL HISTORY: Status post sternotomy for thymoma. PAST MEDICAL HISTORY: 1. History of asthma. 2. History of hypertension. 3. History of neuropathy. SOCIAL HISTORY: The patient is not a smoker or drinker. FAMILY HISTORY: Family history is noncontributory. ALLERGIES: PLEASE SEE ATTACHED MEDICAL RECORDS. REVIEW OF SYSTEMS: She reports some chills at home. She has no headache. She has no neck pain. She notes wheezing and coughing. She reports phlegm production. She denies any abdominal pain, although she does have nausea and vomiting. She has no leg edema. She denies skin rashes. PHYSICAL EXAMINATION: VITAL SIGNS: The patient is afebrile. The blood pressure is 195/97 and the saturation is 98%. The temperature is 96.5. HEENT: Shows no facial swelling or erythema. CARDIAC: Reveals regular rate and rhythm with normal S1, S2. LUNGS: Auscultation of lungs reveals wheezes in both lung carbajal. There is a prolonged expiratory phase. ABDOMEN: Soft, nontender. There is no rebound or guarding. EXTREMITIES: Show no leg edema or calf tenderness. There is no cyanosis or clubbing. SKIN: Shows no rashes. NEUROLOGICAL: Shows no focal abnormalities. LABORATORY DATA: BUN to creatinine ratio is normal. The other electrolytes are within normal limits. White blood cell count is 21.3 yesterday and 17.1 today. Hemoglobin is 10.5 with a normal MCV and the platelet count is normal. IMPRESSION: 1. Community-acquired pneumonia with right sided infiltrate seen on outside CT scan and sepsis, present on admission. 2. Asthma with acute exacerbation. 3. Nausea and vomiting. 4. Hypertension. 5. Neuropathy. 6. Anemia secondary to chronic blood loss. PLAN: 1. Continue corticosteroids and bronchodilators. 2. Continue current antibiotics. 3. Swallowing evaluation because of hiatal hernia and abnormal esophagus seen on outside CT scan. 4. Antiemetics. 5. Control blood pressure. MD VIKA Carlisle/BALDEMAR /[id number]
--- NOTE | 2019-03-01 14:25 | Progress Note ---
DATE: SUBJECTIVE: The patient reports some nausea and vomiting. She still has some congestion, although it is slightly improved. PHYSICAL EXAMINATION: VITAL SIGNS: The patient is afebrile. The vital signs are stable. HEENT: Shows no facial swelling or erythema. CARDIAC: Reveals regular rate and rhythm with normal S1 and S2. There are no murmurs or rubs heard. LUNGS: Auscultation of lungs reveals rhonchorous breath sounds bilaterally. There is no wheezing. ABDOMEN: Soft, nontender. There is no rebound or guarding. EXTREMITIES: Show no leg edema or calf tenderness. There is no cyanosis or clubbing. SKIN: Shows no rashes. IMPRESSION: 1. Right-sided pneumonia with sepsis, present on admission. 2. Gastroesophageal reflux. 3. Nausea and vomiting. 4. Asthma. 5. Dehydration. PLAN: 1. Continue antibiotics. 2. Continue bronchodilators. 3. Antiemetics. 4. Corticosteroids. Isma Landry MD [facility]/BALDEMAR /[id number]
[2019-03-01] MEDS: AZITHROMYCIN 500MG/NS 250 ML 250 ML IV SCH (16:43)
--- NOTE | 2019-03-01 19:16 | NUR ---
report was given to oncoming nurse and when making rounds , the family notified nurse that the patient fell while trying to sit on the toilet. family witnessed the fall and stated that the patient fell and landed on her bottom. patient and family states that she did not hurt herself.
--- NOTE | 2019-03-01 19:20 | NUR ---
PT IS SITTING ON THE TOILET WITH HER MOM AT HER BEDSIDE. ASK PT IF SHE IS OKAY? PER PT SHE SAID YES. RESPIRATION IS EVEN AND UNLABORED, NO DISTRESS NOTED. INFORM FAMILY TO CALL FOR ASSISTANCE WHEN PT IS READY TO GET BACK IN BED. WANTS BED IN THE LOWEST POSITION, LOCKED, AND CALL LIGHT WITHIN REACH. WILL CONTINUE TO MONITOR.
--- NOTE | 2019-03-01 19:45 | NUR ---
called Dr. Delvalle about patient's fall and received new orders.
[2019-03-01] MEDS ORDERED: SODIUM CHLORIDE 0.9% 500ML 500 ML IV ONE (20:00)
--- NOTE | 2019-03-01 20:32 | NUR ---
SPOKE TO DR Rony MARCUS AND PER DR MARCUS SOLU-MEDROL 30MG IV ONE TIME DOSE, CHEST X-RAY. WILL CONTINUE TO MONITOR.
[2019-03-01] MEDS ORDERED: METHYLPREDNISOLONE SOD SUCC 40 MG/ML VIAL 1ML IV ONE (20:45)
[2019-03-01] MEDS: LISINOPRIL 20 MG TAB PO SCH (21:00)
--- NOTE | 2019-03-01 21:04 | NUR ---
PT FAMILY STATS THAT PT HIT HER HEAD. PER DR ROSE CT OF THE BRAIN WITHOUT CONTRAST. WILL CONTINUE TO MONITOR.
[2019-03-01] MEDS ORDERED: SODIUM CHLORIDE 0.9% 250ML 250 ML ONE (21:27)
--- NOTE | 2019-03-01 22:22 | Diagnostic Imaging Report ---
History: Altered mental status Comparison studies: None Technique: Axial images were obtained from the skull base to the vertex. Coronal and sagittal reconstructions obtained from the axial data. Dose modulation, iterative reconstruction, and/or weight based adjustment of the mA/kV was utilized to reduce the radiation dose to as low as reasonably achievable. Intravenous contrast: None Findings: Scalp/skull: No abnormalities. No fractures, blastic or lytic lesions. Extra-axial spaces: No masses. No fluid collections. Brain sulci: Appropriate for age. Ventricles: Normal in size and configuration. No hydrocephalus. Parenchyma: No abnormal densities. No masses, hemorrhage, acute or chronic cortical vascular insults. Sellar/suprasellar region: No abnormalities Craniocervical junction: Patent foramen magnum. No Chiari one malformation. Incidental findings: None. IMPRESSION: No abnormalities. Signed by: Dr. Atul Baker M.D. on 03/01/2019 10:19 PM
--- NOTE | 2019-03-01 22:27 | Diagnostic Imaging Report ---
EXAMINATION: PA and lateral views of the chest. COMPARISON: Chest 2 views 02/24/2019 CLINICAL HISTORY: Asthma exacerbation, shortness of breath . DISCUSSION: Lines/tubes: None. Lungs: Lungs are hypoinflated. Bibasilar atelectatic changes. Bilateral interstitial opacities extending from the praful consistent with interstitial pulmonary edema. Pleura: Likely small bilateral pleural effusions. Heart and mediastinum: Enlarged cardiac silhouette, which may be partly due to AP projection. Central pulmonary venous congestion Bones and soft tissues: No acute bony abnormalities. Midline sternotomy wires. IMPRESSION: 1. Central pulmonary venous congestion and bilateral interstitial pulmonary edema. 2. Bibasilar atelectatic changes and likely small bilateral pleural effusions. Signed by: Dr. Jj Gaviria M.D. on 03/01/2019 10:24 PM
--- NOTE | 2019-03-01 22:54 | NUR ---
SPOKE TO DR MARCUS AND TOLD HIM ABOUT THE CHEST X-RAY RESULT. PER DR MARUCS HOLD LISINOPRIL, LASIX 20MG IV ONE TIME DOSE, TELE WITH CONTINUOUS PULSOX, CT OF CHEST WITH AND WITHOUT CONTRAST WITH PE PROTOCOL, AND TRANSFER PT TO ICU. WILL CONTINUE TO MONITOR.
[2019-03-01] MEDS ORDERED: FUROSEMIDE INJ 10 MG/ML 2 ML VIAL IV ONE (23:00)
--- NOTE | 2019-03-01 23:47 | NUR ---
PT IS OFF THE FLOOR FOR CT OF THE CHEST WITH OR WITHOUT CONTRAST. ONCE PT IS DONE SHE WILL GO TO ICU TO ROOM 193. WILL CONTINUE TO MONITOR.
[2019-03-02] VITALS (40 sets, daily range): BP systolic 96–151; BP diastolic 55–98
[2019-03-02] MEDS: ALBUTEROL SULF 0.083% NEB SOLN 3 ML NEB NEB SCH ×7 (00:35→23:00)
[2019-03-02] MEDS: IPRATROPIUM BROMIDE 0.02% 2.5 ML NEB NEB SCH ×4 (00:35→20:15)
--- NOTE | 2019-03-02 00:50 | Diagnostic Imaging Report ---
EXAMINATION: CT of the chest with contrast, PE protocol. TECHNIQUE: Spiral CT images of the chest were performed from the lung apices through the level of the adrenal glands after the IV administration of 100 cc of Isovue 370. Thin section reconstructions were obtained with special concentration on the pulmonary arteries. Coronal and sagittal reformatted images were performed. COMPARISON: CT chest 11/29/2013 CLINICAL HISTORY:Pulmonary edema, low O2 saturation, AMS DISCUSSION: Exam limited as it was obtained during partial expiratory phase. Lungs: No filling defects are identified in the main, right or left pulmonary arteries to their segmental levels, to suggest pulmonary embolism. Consolidation with air bronchogram involving the right lower lobe (series 3, image 57), with associated posterior retraction of the major fissure. There is abrupt narrowing and cut off of the right bronchus intermedius at the level of the hilum (series 2, image 51 and sagittal image 58), with prominent soft tissue density at the level of the right interlobar pulmonary artery and thickening of the posterior wall of the bronchus intermedius (series 2, image 50). There is also narrowing of the right middle lobe bronchus, with consolidation or bronchograms extending from the hilum (series 3, image 58 and sagittal image 41). Wedge-shaped areas of consolidation with air bronchograms are also noted in the left lower lobe and lingula (series 3, image 61), without associated respective bronchial narrowing. Mildly increased attenuation of the pulmonary parenchyma. No pulmonary nodules. Major airways are grossly clear. No endobronchial lesions are noted. Pleura: <There is no evidence of pleural effusion or pneumothorax.> Heart and mediastinum: Thyroid is unremarkable. Heart size is normal. No pericardial effusion. The aorta is not aneurysmal. Main pulmonary artery is normal in caliber, measuring 2.6 cm. Lymph nodes: Enlarged right lower paratracheal lymph node which measures 1.1 cm in short axis (series 2, image 38). Enlarged subcarinal lymph node measuring 1.6 cm in short axis. Abdomen: The visualized portions of the liver, spleen and stomach are unremarkable. Right adrenal gland is unremarkable. Bones and soft tissues: No aggressive lytic lesions. Minimal degenerative disc changes in the lower thoracic spine. Midline sternotomy wires. IMPRESSION: 1. No CT evidence of pulmonary embolism. 2. Abrupt narrowing and cutoff of the right bronchus intermedius at the hilum, with prominent soft tissue density at the level of the right interlobar pulmonary artery and thickening of the posterior wall of the bronchus intermedius. Findings highly suspicious for hilar bronchogenic neoplasm. Alternatively, an adjacent esophageal neoplasm with hilar involvement also considered Consolidation with air bronchograms involving the right lower lobe, consistent with postobstructive pneumonitis/right lower lobe collapse. Similar findings, although to a lesser degree, are noted in the right middle lobe. 3. Wedge-shaped areas of consolidation with air bronchograms in the left lower lobe and lingula may reflect atelectasis or aspiration. 4. Enlarged right lower paratracheal and subcarinal lymph nodes, which may be metastatic. Signed by: Dr. Jj Gaviria M.D. on 03/02/2019 12:47 AM
[2019-03-02 01:20] LABS: BASOPHILS % 0.2 % (0.0-1.0); EOSINOPHILS # (AUTO) 0.1 (0.0-0.4); EOSINOPHILS % 0.3 % (0.0-6.0); HEMATOCRIT 36.4 % (34.2-44.1); HEMOGLOBIN 12.2 g/dL (12.0-16.0); LYMPHOCYTES # (AUTO) 0.5 (1.0-3.2); LYMPHOCYTES % 2.1 % (18.0-39.1); MEAN CORPUSCULAR HGB CONC 33.5 g/dL (31-35); MEAN CORPUSCULAR VOLUME 92.6 fL (81-99); MONOCYTES # (AUTO) 0.7 (0.2-0.8); MONOCYTES % 2.9 % (4.4-11.3); NEUTROPHILS # (AUTO) 23.7 (2.1-6.9); PLATELET COUNT 430 x10e3/uL (140-360); RED BLOOD COUNT 3.93 x10e6/uL (3.6-5.1); RED CELL DISTRIBUTION WIDTH 13.8 % (11.7-14.4)
--- NOTE | 2019-03-02 01:30 | NUR ---
Patient received lasix 20 mg IVP prior to arrival on unit, abdomen round and distended. Briones cath inserted at 0015, immediate return of over 1450 mL. Briones was emptied at 0130. 1815 mL was present in briones bag. Abdomen now round, soft and non-tender.
[2019-03-02 01:33] LABS: INR 0.8; PROTHROMBIN TIME 11.5 seconds (11.9-14.5)
[2019-03-02 01:41] LABS: CLARITY,URINE SL CLOUDY (CLEAR); COLOR,URINE YELLOW (YELLOW)
[2019-03-02 01:42] LABS: BILIRUBIN,URINE NEGATIVE (NEGATIVE); KETONES,URINE NEGATIVE (NEGATIVE); LEUKOCYTE ESTERASE ,URINE NEGATIVE (NEGATIVE); NITRITE,URINE NEGATIVE (NEGATIVE); PROTEIN,URINE DIPSTICK NEGATIVE (NEGATIVE); URINE UROBILINOGEN 0.2 mg/dL (0.2 - 1)
[2019-03-02 01:43] LABS: ALANINE AMINOTRANSFERASE 17 IU/L (0-55); ALBUMIN 3.5 g/dL (3.5-5.0); ALBUMIN/GLOBULIN RATIO 1.1 (0.8-2.0); ALKALINE PHOSPHATASE 81 IU/L (40-150); ANION GAP 14.7 mmol/L (8-16); BLOOD UREA NITROGEN 15 mg/dL (7-26); BUN/CREATININE RATIO 14 (6-25); CALCIUM 8.6 mg/dL (8.4-10.2); CARBON DIOXIDE 27 mmol/L (22-29); CHLORIDE 99 mmol/L (98-107); CREATININE, SERUM 1.04 mg/dL (0.57-1.11); EST GLOMERULAR FILTRATION RATE > 60 ML/MIN (60-); GLUCOSE 190 mg/dL (74-118); MAGNESIUM 2.3 MG/DL (1.3-2.1); PHOSPHORUS 4.8 MG/DL (2.3-4.7); POTASSIUM 3.7 mmol/L (3.5-5.1); SODIUM 137 mmol/L (136-145)
[2019-03-02 01:43] LABS: AMPHETAMINES SCREEN,URINE NEGATIVE (NEGATIVE); PHENCYCLIDINE SCREEN,URINE NEGATIVE (NEGATIVE)
[2019-03-02 01:44] LABS: BENZODIAZEPINES SCREEN,URINE POSITIVE (NEGATIVE)
[2019-03-02 01:48] LABS: BACTERIA,URINE FEW /HPF; EPITHELIAL CELLS,URINE FEW /LPF
[2019-03-02] MEDS ORDERED: SODIUM CHLORIDE 0.9% 1000ML 1,000 ML ONE (03:37)
[2019-03-02 05:17] LABS: BASOPHILS % 0.1 % (0.0-1.0); HEMATOCRIT 34.9 % (34.2-44.1); HEMOGLOBIN 11.4 g/dL (12.0-16.0); LYMPHOCYTES # (AUTO) 0.4 (1.0-3.2); MEAN CORPUSCULAR HEMOGLOBIN 30.2 pg (28-32); MEAN CORPUSCULAR HGB CONC 32.7 g/dL (31-35); MEAN CORPUSCULAR VOLUME 92.6 fL (81-99); MONOCYTES # (AUTO) 0.5 (0.2-0.8); MONOCYTES % 2.2 % (4.4-11.3); NEUTROPHILS # (AUTO) 20.4 (2.1-6.9); NEUTROPHILS % 95.1 % (38.7-80.0); PLATELET COUNT 411 x10e3/uL (140-360); RED BLOOD COUNT 3.77 x10e6/uL (3.6-5.1); RED CELL DISTRIBUTION WIDTH 13.9 % (11.7-14.4)
[2019-03-02 05:35] LABS: ALANINE AMINOTRANSFERASE 16 IU/L (0-55); ALBUMIN 3.2 g/dL (3.5-5.0); ALBUMIN/GLOBULIN RATIO 0.9 (0.8-2.0); ALKALINE PHOSPHATASE 77 IU/L (40-150); ANION GAP 14.3 mmol/L (8-16); BLOOD UREA NITROGEN 16 mg/dL (7-26); BUN/CREATININE RATIO 16 (6-25); CALCIUM 8.4 mg/dL (8.4-10.2); CARBON DIOXIDE 27 mmol/L (22-29); CHLORIDE 100 mmol/L (98-107); CREATININE, SERUM 0.98 mg/dL (0.57-1.11); EST GLOMERULAR FILTRATION RATE > 60 ML/MIN (60-); GLUCOSE 203 mg/dL (74-118); POTASSIUM 4.3 mmol/L (3.5-5.1); SODIUM 137 mmol/L (136-145)
[2019-03-02] MEDS: BREO INH SCH (06:00)
[2019-03-02] MEDS: PIPER-TAZ 3.375 GM 50 ML IV SCH ×3 (06:47→21:48)
[2019-03-02] MEDS ORDERED: IOPAMIDOL 370 MG/ML 200 ML INFUS..BTL INJ ONE (06:57)
[2019-03-02] MEDS ORDERED: SODIUM CHLORIDE 0.9% 50ML 50 ML ONE (06:58)
--- NOTE | 2019-03-02 07:02 | NUR ---
IM- progress note O/N no events ROS: no f/c/s/N/V/D/HILLIARD/vision changes/cp/back pain/skin rash V/S: revd PE anicteric ns1s2 reduced BS; right lung with less aeration soft nt nd no e/t skin dry n. affect labs/meds revd A/P: 48yoF PNA/HAP Acute asthma exa Obesity BMI 32.6 Mood d/o Neuropathy HTN PLAN IV sterioids/antitussives/antihistaine hab1c/lipids continue home meds scd 02-27 cont care. 02-28 cont supportive care for PNA. CT imaging at outside facility did demonstrate PNA. cont care. PNA was POA. 03/01 supportive care; f/u labs 03/02 Fall overnight; CT brain negative; Pseudomonal PNA. CT chest shows ?Hilar Bronchogenic neoplasm and Metastatic right paratracheal/subcarinal lynph nodes disease. Consult IR for LN biopsy. Sebastián Delvalle MD, PhD.
[2019-03-02] MEDS ORDERED: VANCOMYCIN 1GM/NS 250 ML 250 ML IV SCH (08:00)
[2019-03-02] MEDS: LORATADINE 10 MG TAB PO SCH (09:00)
[2019-03-02] MEDS: MONTELUKAST SODIUM 10 MG TAB PO SCH (09:00)
[2019-03-02] MEDS: DULOXETINE HCL 30 MG DELAYED RELEASE PO SCH (09:00)
[2019-03-02] MEDS: BENZONATATE 100 MG CAP PO SCH ×3 (09:00→20:41)
[2019-03-02] MEDS: GABAPENTIN 400 MG CAP PO SCH ×3 (09:00→20:41)
[2019-03-02] MEDS ORDERED: SIMETHICONE 80 MG CHEW PO PRN (10:00)
[2019-03-02] MEDS: PANTOPRAZOLE 40 MG 10ML VIAL IV SCH (10:45)
[2019-03-02] MEDS ORDERED: DEXAMETHASONE SOD PHOS INJ 4 MG/ML VIAL ONE (14:27)
[2019-03-02] MEDS ORDERED: LIDOCAINE HCL 2% LOCAL INJ 5 ML SDV VIAL INJ ONE (14:27)
[2019-03-02] MEDS ORDERED: SEVOFLURANE INHAL SOLN 250 ML PEN BTL ONE (14:27)
[2019-03-02] MEDS ORDERED: ONDANSETRON HCL INJ 2MG/ML 2ML 2 MG/ML VIAL ONE (14:27)
[2019-03-02] MEDS ORDERED: PROPOFOL IV EMULSION 10 MG/ML 20 ML VIAL ONE (14:27)
[2019-03-02] MEDS ORDERED: MIDAZOLAM HCL 2 MG/2 ML VIAL ONE (15:01)
--- NOTE | 2019-03-02 15:20 | NUR ---
pt transferred to OR for procedure.
[2019-03-02] MEDS ORDERED: LIDOCAINE HCL 1% 30ML-PF VIAL ONE (15:45)
[2019-03-02] MEDS ORDERED: LIDOCAINE HCL 4% 50 ML BTL ONE (15:46)
[2019-03-02] MEDS ORDERED: TOBRAMYCIN 40 MG/ML 2ML VIAL INH SCH (17:00)
[2019-03-02] MEDS: SODIUM CHLORIDE 0.9% 1000ML 1,000 ML IV SCH (17:41)
--- NOTE | 2019-03-02 18:55 | Progress Note ---
DATE: SUBJECTIVE: The patient became more confused last night and had some recurrent vomiting. She also had a syncopal episode in the bathroom. The patient was subsequently transferred down to [facility] for further evaluation. She had a CT scan of the chest that showed a consolidation in the right lower lobe and narrowing of the bronchus intermedius, suggestive of possible malignancy. PHYSICAL EXAMINATION: VITAL SIGNS: The patient is afebrile. The vital signs are stable. HEENT: Shows no facial swelling or erythema. CARDIAC: Reveals regular rate and rhythm with a normal S1 and S2. There are no murmurs or rubs. LUNGS: Auscultation of lungs reveals rhonchorous breath sounds bilaterally. There is no wheezing. ABDOMEN: Soft and nontender. There is no rebound or guarding. EXTREMITIES: Shows no leg edema or calf tenderness. There is no cyanosis or clubbing. SKIN: Shows no rashes. NEUROLOGICAL: Shows no focal abnormalities. LABORATORY DATA: White blood cell count is 21.4 and hemoglobin is 11.4. The platelet count is 411. The BUN to creatinine ratio is normal. The other electrolytes are within normal limits. IMPRESSION: 1. Pseudomonas pneumonia in the right lower lobe with severe sepsis, present on admission. 2. 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 3. Gastroesophageal reflux and hiatal hernia with recurrent nausea and vomiting. 4. Asthma. 5. Dehydration. PLAN: 1. Continue appropriate antibiotics. 2. GI evaluation. 3. Intravenous fluids. 4. Discussed case with Cardiothoracic Surgery. Isma Landry MD [facility] /[id number]
[2019-03-02] MEDS: PROMETHAZINE 12.5MG/ NACL 0.9% 50 ML IV PRN (19:15)
[2019-03-02 19:37] LABS: BODY FLUID APPEARANCE SL.CLOUDY; BODY FLUID TYPE BRONCH LAVAGE
[2019-03-02 19:38] LABS: RBC,BODY FLUID 147 cells/uL; WBC,BODY FLUID 180 cells/uL
[2019-03-02] MEDS ORDERED: BENZOCAINE/TETRACAINE/BUTAMBEN AERO SPRAY 56 GM CAN TOP PRN ×2 (19:45→20:45)
[2019-03-02] MEDS: TOBRAMYCIN 40MG/ML 30ML MDV INH SCH (21:00)
[2019-03-02] MEDS ORDERED: MORPHINE SULFATE 2 MG/ML SYR 1ML IV PRN (21:45)
[2019-03-02] MEDS: MORPHINE SULFATE INJ 4 MG/ML INJ 1ML IV PRN (21:51)
[2019-03-02 21:57] LABS: LYMPHOCYTES,BODY FLUID 25 %; MONO/MACROPHG,BODY FLUID 75 %
--- NOTE | 2019-03-02 23:36 | Operative Report ---
DATE OF PROCEDURE: SURGEON: Isma Landry MD PROCEDURE: Bronchoscopy with bronchoalveolar lavage. PREOPERATIVE DIAGNOSIS: Right lower lobe pneumonia. POSTOPERATIVE DIAGNOSIS: Tracheoesophageal fistula and right lower lobe pneumonia. CONSENT: Consent was obtained from the patient. ANESTHESIA: The Anesthesia Service provided MAC sedation with laryngeal mask airway. PROCEDURE IN DETAIL: The patient was placed in a supine position. A LMA was used. The scope was introduced through the LMA. There was some mucus in the upper airway. This was removed. The scope was then advanced through the glottis. There was some mucus in the trachea. The scope was advanced. The best was normal. There was a normal left tracheobronchial tree. The left upper lobe and lingula were normal to the subsegmental level. The left lower lobe was normal with no endobronchial lesions. The scope was then repositioned in the right tracheobronchial tree. The right upper lobe and right middle lobe were normal. Right lower lobe was normal with no endobronchial lesions. There was a large amount of mucus and secretions coming from the right lower lobe. On re-examination of the trachea, after suctioning and lavage showed a small hole in the proximal to mid trachea with no surrounding erythema or masslike lesion. A picture was obtained. COMPLICATIONS: None. ESTIMATED BLOOD LOSS: None. Isma Landry MD [facility] /[id number]
[2019-03-03] VITALS (24 sets, daily range): BP systolic 107–152; BP diastolic 57–96
--- NOTE | 2019-03-03 01:51 | Consultation ---
DATE OF CONSULTATION: 03/02/2019 HISTORY OF PRESENT ILLNESS: This is 48 years old who has a history of thymoma, status post surgery with sternotomy, history of asthma, presented to the hospital because of problems with right-sided infiltrate as well as shortness of breath. The patient had bronchoscopy earlier today and finding shows possible tracheoesophageal fistula. The patient has reported that she has been having some cough during meal and she also has been having some nausea and vomiting. Her other workups [place] [id number], and the chemistry was okay. She did have a CAT scan of the chest, which shows an abrupt narrowing and cutoff of the bronchus at the hilum,she did have a modified barium swallow, which did not show any aspirations. PAST MEDICAL PROBLEM: Significant for history of asthma, history of hypertension, history of neuropathy. ALLERGIES: NONE. SOCIAL HISTORY: No alcohol use. FAMILY HISTORY: Noncontributory. REVIEW OF SYSTEMS: Denies any chest pain at this point. Bleeding is better. Denies any dysphagia or odynophagia. Denies any dysuria, hematuria, or any kind of syncopal episode. PHYSICAL EXAMINATION: GENERAL: Awake, lying in bed, appears to be stable. VITAL SIGNS: Afebrile currently with stable vital signs. HEAD, EYES, EARS, NOSE, AND THROAT: Normocephalic, atraumatic. Sclera is anicteric. NECK: Supple. HEART: Regular. ABDOMEN: Soft. There is no distention at this point, it is nontender. EXTREMITIES: No cyanosis. No clubbing. LABORATORY DATA: CMP appears to be normal and WBC is 21.41, hemoglobin 11.4. PT 11.5, INR 0.8, and CAT scan as mentioned before. IMPRESSION: 1. Nausea and vomiting. 2. Possible tracheoesophageal fistula. RECOMMENDATION: Obtain an upper GI barium or barium esophagram and to see if there is any kind of aspirations leaking. If that is confirmed, then the patient will need to have esophageal stent. In the meantime, we will keep her n.p.o. and continue antibiotic and follow labs and clinically. MD JOEL Evans/MODL /[id number] cc: MD Sebastián Carlisle MD
[2019-03-03] MEDS: ALBUTEROL SULF 0.083% NEB SOLN 3 ML NEB NEB SCH ×6 (02:30→23:40)
[2019-03-03] MEDS: IPRATROPIUM BROMIDE 0.02% 2.5 ML NEB NEB SCH ×4 (02:30→19:05)
[2019-03-03] MEDS: SODIUM CHLORIDE 0.9% 1000ML 1,000 ML IV SCH ×2 (02:30→13:35)
[2019-03-03] MEDS: MORPHINE SULFATE INJ 4 MG/ML INJ 1ML IV PRN (03:57)
[2019-03-03 04:59] LABS: BASOPHILS % 0.1 % (0.0-1.0); EOSINOPHILS % 0.1 % (0.0-6.0); HEMATOCRIT 30.3 % (34.2-44.1); HEMOGLOBIN 9.8 g/dL (12.0-16.0); LYMPHOCYTES # (AUTO) 1.8 (1.0-3.2); LYMPHOCYTES % 12.6 % (18.0-39.1); MEAN CORPUSCULAR HEMOGLOBIN 30.2 pg (28-32); MEAN CORPUSCULAR HGB CONC 32.3 g/dL (31-35); MEAN CORPUSCULAR VOLUME 93.5 fL (81-99); MONOCYTES # (AUTO) 0.7 (0.2-0.8); MONOCYTES % 4.6 % (4.4-11.3); NEUTROPHILS # (AUTO) 11.7 (2.1-6.9); NEUTROPHILS % 82.2 % (38.7-80.0); PLATELET COUNT 393 x10e3/uL (140-360); RED BLOOD COUNT 3.24 x10e6/uL (3.6-5.1); RED CELL DISTRIBUTION WIDTH 13.8 % (11.7-14.4)
--- NOTE | 2019-03-03 05:26 | NUR ---
IM- progress note O/N no events ROS: no f/c/s/N/V/D/HILLIARD/vision changes/cp/back pain/skin rash V/S: revd PE anicteric ns1s2 reduced BS; right lung with less aeration soft nt nd no e/t skin dry n. affect labs/meds revd A/P: 48yoF PNA/HAP Acute asthma exa Obesity BMI 32.6 Mood d/o Neuropathy HTN PLAN IV sterioids/antitussives/antihistaine hab1c/lipids continue home meds scd 02-27 cont care. 02-28 cont supportive care for PNA. CT imaging at outside facility did demonstrate PNA. cont care. PNA was POA. 03/01 supportive care; f/u labs 03/02 Fall overnight; CT brain negative; Pseudomonal PNA. CT chest shows ?Hilar Bronchogenic neoplasm and Metastatic right paratracheal/subcarinal lynph nodes disease. Consult IR for LN biopsy. 03/03 Bronch= Transesophageal fistula; EGD pending; Sebastián Delvalle MD, PhD.
[2019-03-03 05:30] LABS: ALANINE AMINOTRANSFERASE 12 IU/L (0-55); ALBUMIN 2.8 g/dL (3.5-5.0); ALBUMIN/GLOBULIN RATIO 0.9 (0.8-2.0); ALKALINE PHOSPHATASE 54 IU/L (40-150); ANION GAP 11.4 mmol/L (8-16); BLOOD UREA NITROGEN 17 mg/dL (7-26); BUN/CREATININE RATIO 19 (6-25); CALCIUM 8.3 mg/dL (8.4-10.2); CARBON DIOXIDE 29 mmol/L (22-29); CHLORIDE 100 mmol/L (98-107); CREATININE, SERUM 0.91 mg/dL (0.57-1.11); EST GLOMERULAR FILTRATION RATE > 60 ML/MIN (60-); GLUCOSE 109 mg/dL (74-118); POTASSIUM 4.4 mmol/L (3.5-5.1); SODIUM 136 mmol/L (136-145)
[2019-03-03] MEDS ORDERED: VANCOMYCIN 1GM/NS 250 ML 250 ML IV SCH (05:30)
[2019-03-03] MEDS: PIPER-TAZ 3.375 GM 50 ML IV SCH ×3 (05:39→21:33)
[2019-03-03] MEDS: BREO INH SCH (05:40)
[2019-03-03] MEDS: TOBRAMYCIN 40MG/ML 30ML MDV INH SCH ×2 (07:25→19:05)
[2019-03-03] MEDS: PANTOPRAZOLE 40 MG 10ML VIAL IV SCH (08:19)
[2019-03-03] MEDS: HYDROMORPHONE 1MG/1ML INJ IV PRN ×4 (08:27→23:13)
[2019-03-03] MEDS: MONTELUKAST SODIUM 10 MG TAB PO SCH (08:37)
[2019-03-03] MEDS: LORATADINE 10 MG TAB PO SCH (08:37)
[2019-03-03] MEDS: GABAPENTIN 400 MG CAP PO SCH ×3 (08:37→20:19)
[2019-03-03] MEDS: DULOXETINE HCL 30 MG DELAYED RELEASE PO SCH (08:37)
[2019-03-03] MEDS: BENZONATATE 100 MG CAP PO SCH ×3 (08:37→20:20)
--- NOTE | 2019-03-03 13:44 | Progress Note ---
DATE: SUBJECTIVE: The patient had a bronchoscopy yesterday that showed possible tracheoesophageal fistula. She was subsequently seen by GI and is scheduled for endoscopy tomorrow. PHYSICAL EXAMINATION: VITAL SIGNS: The patient is afebrile. The vital signs are stable. HEENT: Shows no facial swelling or erythema. CARDIAC: Reveals regular rate and rhythm with normal S1 and S2. There are no murmurs or rubs. LUNGS: Auscultation of lungs reveals clear breath sounds and wheezing bilaterally. ABDOMEN: Soft and nontender. There is no rebound or guarding. EXTREMITIES: Shows no leg edema or calf tenderness. There is no cyanosis or clubbing. SKIN: Shows no rashes. NEUROLOGICAL: Shows no focal abnormalities. IMPRESSION: 1. Pseudomonas pneumonia in the right lower lobe with severe sepsis, present on admission. 2. Tracheoesophageal fistula. 3. Gastroesophageal reflux and hiatal hernia. 4. Asthma. PLAN: 1. Continue current antibiotics. 2. Await completion of GI evaluation. 3. Possible esophageal stent. 4. Continue anti-reflux medications. Isma Landry MD LM[facility] /[id number]
[2019-03-03] MEDS: PROMETHAZINE 12.5MG/ NACL 0.9% 50 ML IV PRN ×2 (14:57→21:33)
[2019-03-04] VITALS (20 sets, daily range): BP systolic 99–162; BP diastolic 61–97
[2019-03-04] MEDS: SODIUM CHLORIDE 0.9% 1000ML 1,000 ML IV SCH ×2 (01:35→14:52)
[2019-03-04] MEDS: IPRATROPIUM BROMIDE 0.02% 2.5 ML NEB NEB SCH ×4 (03:35→19:30)
[2019-03-04] MEDS: ALBUTEROL SULF 0.083% NEB SOLN 3 ML NEB NEB SCH ×5 (03:35→19:30)
[2019-03-04 05:01] LABS: BASOPHILS % 0.2 % (0.0-1.0); EOSINOPHILS # (AUTO) 0.1 (0.0-0.4); EOSINOPHILS % 1.1 % (0.0-6.0); HEMATOCRIT 31.4 % (34.2-44.1); HEMOGLOBIN 10.1 g/dL (12.0-16.0); LYMPHOCYTES % 33.8 % (18.0-39.1); MEAN CORPUSCULAR HEMOGLOBIN 30.1 pg (28-32); MEAN CORPUSCULAR HGB CONC 32.2 g/dL (31-35); MEAN CORPUSCULAR VOLUME 93.7 fL (81-99); MONOCYTES # (AUTO) 0.5 (0.2-0.8); MONOCYTES % 5.6 % (4.4-11.3); NEUTROPHILS # (AUTO) 5.3 (2.1-6.9); PLATELET COUNT 402 x10e3/uL (140-360); RED BLOOD COUNT 3.35 x10e6/uL (3.6-5.1); RED CELL DISTRIBUTION WIDTH 13.6 % (11.7-14.4)
[2019-03-04] MEDS: BREO INH SCH (05:09)
[2019-03-04 05:32] LABS: ALANINE AMINOTRANSFERASE 11 IU/L (0-55); ALBUMIN 2.9 g/dL (3.5-5.0); ALBUMIN/GLOBULIN RATIO 0.9 (0.8-2.0); ALKALINE PHOSPHATASE 53 IU/L (40-150); BLOOD UREA NITROGEN 16 mg/dL (7-26); BUN/CREATININE RATIO 19 (6-25); CALCIUM 8.8 mg/dL (8.4-10.2); CARBON DIOXIDE 26 mmol/L (22-29); CHLORIDE 99 mmol/L (98-107); CREATININE, SERUM 0.83 mg/dL (0.57-1.11); EST GLOMERULAR FILTRATION RATE > 60 ML/MIN (60-); GLUCOSE 64 mg/dL (74-118); SODIUM 134 mmol/L (136-145)
[2019-03-04] MEDS: PIPER-TAZ 3.375 GM 50 ML IV SCH ×2 (06:01→14:50)
--- NOTE | 2019-03-04 06:32 | NUR ---
IM- progress note O/N no events ROS: no f/c/s/N/V/D/HILLIARD/vision changes/cp/back pain/skin rash V/S: revd PE anicteric ns1s2 reduced BS; right lung with less aeration soft nt nd no e/t skin dry n. affect labs/meds revd A/P: 48yoF PNA/HAP Acute asthma exa Obesity BMI 32.6 Mood d/o Neuropathy HTN PLAN IV sterioids/antitussives/antihistaine hab1c/lipids continue home meds scd 02-27 cont care. 02-28 cont supportive care for PNA. CT imaging at outside facility did demonstrate PNA. cont care. PNA was POA. 03/01 supportive care; f/u labs 03/02 Fall overnight; CT brain negative; Pseudomonal PNA. CT chest shows ?Hilar Bronchogenic neoplasm and Metastatic right paratracheal/subcarinal lynph nodes disease. Consult IR for LN biopsy. 03/03 Bronch= Transesophageal fistula; EGD pending; 03/04 cont abx; also on tobramycin; EGD/procedure pending= tracheoeseophageal fistula 2cm inferior to the UES. D/w [facility] transfer center- transfer when accepted. Sebastián Delvalle MD, PhD.
[2019-03-04] MEDS: PANTOPRAZOLE 40 MG 10ML VIAL IV SCH (09:00)
[2019-03-04] MEDS: MONTELUKAST SODIUM 10 MG TAB PO SCH (09:00)
[2019-03-04] MEDS: DULOXETINE HCL 30 MG DELAYED RELEASE PO SCH (09:00)
[2019-03-04] MEDS: GABAPENTIN 400 MG CAP PO SCH ×3 (09:00→21:00)
[2019-03-04] MEDS: LORATADINE 10 MG TAB PO SCH (09:00)
[2019-03-04] MEDS: BENZONATATE 100 MG CAP PO SCH ×3 (09:00→21:00)
[2019-03-04] MEDS: HYDROMORPHONE 1MG/1ML INJ IV PRN ×2 (09:39→18:39)
--- NOTE | 2019-03-04 10:59 | NUR ---
left for egd, vss and recorded.
--- NOTE | 2019-03-04 12:26 | NUR ---
pt returned from egd, report recvd. vss and recorded
[2019-03-04] MEDS ORDERED: PROPOFOL IV EMULSION 10 MG/ML 20 ML VIAL ONE (13:51)
[2019-03-04] MEDS ORDERED: FENTANYL CITRATE/PF 100MCG/2 ML INJ ONE (14:38)
[2019-03-04] MEDS ORDERED: MIDAZOLAM HCL 2 MG/2 ML VIAL ONE (14:38)
[2019-03-04] MEDS: ONDANSETRON HCL INJ 2MG/ML 2ML 2 MG/ML VIAL IV PRN (15:12)
[2019-03-04] MEDS: TOBRAMYCIN 40MG/ML 30ML MDV INH SCH ×2 (15:15→19:00)
--- NOTE | 2019-03-04 17:12 | Progress Note ---
DATE: SUBJECTIVE: The patient had an endoscopy today that confirmed the tracheoesophageal fistula. The patient's esophageal tracheal fistula was too high to be amenable to stent. The patient is now [facility]. Since being n.p.o., she feels better. She has less dyspnea and less cough. PHYSICAL EXAMINATION: VITAL SIGNS: The patient is afebrile. The vital signs are stable. HEENT: Shows no facial swelling or erythema. CARDIAC: Reveals regular rate and rhythm with normal S1 and S2. There are no murmurs or rubs. RESPIRATORY: Auscultation of lungs show clear breath sounds bilaterally. There is no wheezing. ABDOMEN: Soft and nontender. There is no rebound or guarding. EXTREMITIES: Show no leg edema or calf tenderness. There is no cyanosis or clubbing. SKIN: Shows no rashes. NEUROLOGICAL: Shows no focal abnormalities. IMPRESSION: 1. Tracheoesophageal fistula. 2. Pseudomonas pneumonia in the right lower lobe with severe sepsis, present on admission. 3. Gastroesophageal reflux. 4. Asthma. PLAN: 1. Continue current antibiotics. 2. Await potential transfer to the [facility]. 3. NPO. Isma Landry MD LM/BALDEMAR /[id number]
--- NOTE | 2019-03-04 18:44 | NUR ---
updated dr nicole regarding no further ordrs recvd after egd, no orders given at this time.
[2019-03-04] MEDS ORDERED: MONTELUKAST SODIUM 10 MG TAB PO SCH (21:00)
[2019-03-05 12:15] VITALS: BP 138/83
== END 2019-03-04 21:42 | disposition short-term general hospital (02) | DRG 871 ==
LOC: ER 11:15 → ERHOLD 11:35 → IMCU 15:44 → OBSVTOIN 02-28 12:29 → MED/SURG3 02-28 21:45 → ICU 03-01 23:55 → PACU V 03-03 10:37 → ICU 03-03 10:41
PROVIDERS: ADMIT Internal Medicine; ATTEND Internal Medicine
PROC: 0BJ08ZZ Inspection of Tracheobronchial Tree, Via Natural or Artificial Opening Endoscopic (ICD-10-PCS; 2019-03-02)
PROC: 0B9F8ZX Drainage of Right Lower Lung Lobe, Via Natural or Artificial Opening Endoscopic, Diagnostic (ICD-10-PCS; principal; 2019-03-02 14:30)
DX: A41.9 Sepsis, unspecified organism (principal); J18.9 Pneumonia, unspecified organism; J45.909 Unspecified asthma, uncomplicated; K21.9 Gastro-esophageal reflux disease without esophagitis; R11.10 Vomiting, unspecified; R11.0 Nausea; E86.0 Dehydration; D50.0 Iron deficiency anemia secondary to blood loss (chronic)
CPT/HCPCS: 31623; 36415; 43239; 70450; 71046; 71260; 74230; 80053; 80307; 81001; 82140; 82550; 82553; 82948; 83605; 83735; 83880; 84100; 84484; 84702; 85025; 85610; 85730; 87040; 87070; 87086; 87102; 87116; 87186; 87205; 87206; 87335; 88305; 88312; 89051; 93005; 94640; 99284; G0378; J0456; J1100; J1170; J1940; J2001; J2250; J2270; J2405; J2543; J2550; J2920; J2930; J3010; J3260; J3370; J7030; J7040; J7050; Q9967

== ENCOUNTER → 2022-04-16 | Day surgery (SDC) | payer BC, MEDICARE ==
[~2022-04-16] MED LIST changes: +ALBUTEROL SULF 0.083% NEB SOLN 3 ML NEB ONE; +AMITRIPTYLINE150 MG PO; +ATORVASTATIN CA20 MG PO; +BUSPIRONE HCL10 MG PO; +DUO NEB INH; +HYDRALAZINE HCL50 MG PO; +IRBESARTAN150 MG PO; +LIDOCAINE HCL 2% LOCAL INJ 5 ML SDV VIAL INJ ONE; +METFORMIN HCL500 MG PO; +METOPROLOL SUCC50 MG PO; +MIDAZOLAM HCL 2 MG/2 ML VIAL ONE; +NORCO PO; +PANTOPRAZOLE SO40 MG PO; +PHENTERMINE H37.5 MG PO; +PROPOFOL IV EMULSION 10 MG/ML 20 ML VIAL ONE; +SEROQUEL100 MG PO; +VITAMIN D325 MCG PO
[2022-04-16 12:49] VITALS: BP 134/81
== END | disposition home or self-care (01) ==
LOC: OR 09:28
PROVIDERS: ATTEND Internal Medicine Gastroenterology
DX: Z12.11 Encounter for screening for malignant neoplasm of colon (principal); K21.9 Gastro-esophageal reflux disease without esophagitis; J44.9 Chronic obstructive pulmonary disease, unspecified; I10 Essential (primary) hypertension; E11.9 Type 2 diabetes mellitus without complications; G62.9 Polyneuropathy, unspecified; E78.5 Hyperlipidemia, unspecified; F32.A Depression, unspecified; Z88.1 Allergy status to other antibiotic agents; Z88.3 Allergy status to other anti-infective agents; Z01.810 Encounter for preprocedural cardiovascular examination; Z99.81 Dependence on supplemental oxygen; Z79.84 Long term (current) use of oral hypoglycemic drugs; Z79.899 Other long term (current) drug therapy; Z68.33 Body mass index [BMI] 33.0-33.9, adult; Z86.2 Personal history of diseases of the blood and blood-forming organs and certain disorders involving the immune mechanism
CPT/HCPCS: 36415; 45378; 81025; 82948; 93005; J2001; J2250; J2704